=== PATIENT | female | born 1930 | race African-American/Black ===

== ENCOUNTER 2017-02-11 09:02 | Inpatient (IN) ==
[2017-02-11] MEDS ORDERED: FUROSEMIDE 40 MG/4 ML VIAL IV STA (09:49)
[2017-02-11] MEDS ORDERED: FUROSEMIDE 100 MG/10 ML VIAL ONE (10:20)
--- NOTE | 2017-02-11 10:20 | XRay Report ---
Portable chest Date: 02/11/2017 Clinical history: Shortness of breath Comparison: 07/05/2016 Technique: Portable AP sitting chest Findings: The heart is larger in size with prominent pulmonary vasculature. Progressive diffuse parenchymal findings with small pleural effusions. Degenerative changes are noted. Impression: The heart is larger in size with moderate CHF and small pleural effusions. PROCEDURE INTERPRETED AT [facility] DEPARTMENT OF RADIOLOGY Final Report Signed by: Dr. Raven Granados
--- NOTE | 2017-02-11 11:12 | Emergency Department Note ---
Luz Elena Montaño Hilary, am scribing for, and in the presence of, Angela Us DO 09: 48. IMagen Debra, DO, personally performed the services described in this documentation, ascribed by Gay Laguna in my presence, and it is both accurate and complete . Arrival - Arrival Chief Complaint: Shortness of Breath Stated Complaint: sob ED Nursing Triage Note: pt to triage via wc with c/o having sob pt states onset 4 days lpta. worsening this am. pt denies any cp. pt states she can't lay flat. Mode of Arrival: Wheelchair Limitations: No Limitations Source: Patient, RN Notes Reviewed - History of Present Illness HPI Narrative: Pt is a 86 y/o female presenting to the ED with c/o SOB which onset 4 days ago but worsened this AM. Pt is on 2L of home oxygen for CHF, she states that she takes her medication as prescribed but skipped a dose of Lasix last night. Pt confirms SOB but denies chest pain. No other complaints or problems stated in the ED. Onset (ago): day(s) Consistency: constant Severity: mild Severity scale (1-10): 1 Allergies/Adverse Reactions: Allergies Allergy/AdvReac Type Severity Reaction Status Date / Time albuterol Allergy SHORTNESS Verified 02/11/17 09:24 OF BREATH Penicillins Allergy RASH Verified 02/11/17 09:24 Sulfa (Sulfonamide Allergy RASH Verified 02/11/17 09:24 Antibiotics) Home Medications: Home Medications Medication Instructions Recorded Confirmed Type Amlodipine Besylate 5 mg PO DAILY 08/14/15 07/01/16 History Atorvastatin [Lipitor] 20 mg PO DAILY 08/14/15 07/01/16 History Clopidogrel [Plavix] 75 mg PO DAILY 08/14/15 07/01/16 History Meloxicam 15 mg PO DAILY 08/14/15 07/01/16 History Potassium Chloride Cap/Tab [K Dur] 20 meq PO TID 08/14/15 07/01/16 History Ascorbic Acid Tab [Vitamin C Tab] 500 mg PO DAILY 07/01/16 07/01/16 History Cholecalciferol [Vitamin D3] 400 unit PO DAILY 07/01/16 07/01/16 History Vitamin E 400 unit PO DAILY 07/01/16 07/01/16 History Acetaminophen Tab [Tylenol Tab] 325 mg PO Q4H PRN #0 tablet 07/06/16 Rx Albuterol Neb [Proventil Neb] 2.5 mg RESP TX RT Q6H PRN #7 07/06/16 Rx nebulization solution Ferrous Sulfate Tab [Feosol 325 mg PO BID #60 tablet 07/06/16 Rx Original Tab] Furosemide Tab [Lasix Tab] 80 mg PO BID DIURETIC #60 tablet 07/06/16 Rx Insulin NPH/Regular 70/30 [HumuLIN 15 unit SUBCUT AC SUPPER #7 07/06/16 Rx 70/30] Insulin NPH/Regular 70/30 [HumuLIN 30 unit SUBCUT AC BREAKFAST #7 07/06/16 Rx 70/30] injection Levofloxacin Tab [Levaquin Tab] 500 mg PO DAILY #14 tablet 07/06/16 Rx Magnesium Chloride [Slow Mag] 64 mg PO BID #60 tablet 07/06/16 Rx Pantoprazole Tab [Protonix Tab] 40 mg PO DAILY #30 tablet 07/06/16 Rx Review of System - Review of System 12 point system: reviewed and no additional remarkable complaints except as stated - Review of System Constitutional: Absent: fever Respiratory: Present: respiratory distress (SOB) Cardiovascular: Absent: chest pain Medical,Surgical,& Family Hx - Medical History Cardio: History of: CAD, Hypertension, Cardiovascular Problems (Cardiomegley) Endocrine: History of: Diabetes Mellitus (IDDM), Dyslipidemia Respiratory: History of: COPD (oxygen dependent) - Surgical History Cardiac Surgeries: Sugical HX of: Cardiac Catheterization (stents) - Family History Family History: Reports;: Family Heart Disease, Family Hypertension - Social History Smoking Status: Smoker, status unknown Frequency of Alcohol Use: None Type of Drug Use: None Exam Vital Signs: Vital Signs Temperature 97.2 F L 02/11/17 10:00 Pulse Rate 101 H 02/11/17 10:00 Respiratory Rate 22 02/11/17 10:00 Blood Pressure 182/83 02/11/17 10:00 O2 Sat by Pulse Oximetry 79 L 02/11/17 09:20 - General General appearance: alert, in no apparent distress, obese - Head Head exam: Present: atraumatic, normocephalic - Eye Eye exam: Present: normal appearance, PERRL, EOMI - ENT ENT exam: Present: mucous membranes moist, TM's normal bilaterally. Absent: mucous membranes dry - Neck Neck exam: Present: full ROM, trachea midline. Absent: tenderness - Chest Chest inspection: Present: symmetric chest wall rise. Absent: tenderness - Respiratory Respiratory exam: Present: rales (throughout). Absent: respiratory distress - Cardiovascular Cardiovascular exam: Present: regular rate, normal rhythm, normal heart sounds. Absent: murmur, rubs, gallop - Abdominal Exam Abdominal exam: Present: soft, normal bowel sounds. Absent: distention, tenderness (right sided abdominal hernia noted ) - Extremities Exam Extremities exam: Present: full ROM, pedal edema (slightly on the left). Absent : tenderness - Back Exam Back exam: Present: full ROM. Absent: tenderness - Neurological Exam Neurological exam: Present: alert, oriented X3, CN II-XII intact. Absent: motor sensory deficit - Psychiatric Psychiatric exam: Present: normal affect, normal mood - Skin Skin exam: Present: warm, dry, intact, normal color. Absent: rash Course Course Narrative: pt improved after lasix and breathing tx. but still feels that she is working hard to breathe, will admit for observation to hospitalist. pt is stable at this time . O2 sat 90 to 92% on 2 lpm Results - Labs CBC & BMP: 02/11/17 10:46 02/11/17 10:46 Lab Results: I have reviewed the patients labs Labs: Laboratory Tests 02/11/17 10:46 WBC 9.6 RBC 5.27 Hgb 13.2 Hct 40.8 MCV 77.4 L MCH 25 L Plt Count 325 Lymph % (Auto) 20.1 L Baso % (Auto) 1.1 H - Diagnostic Findings Procedure: Chest x-ray: report reviewed by me (The heart is larger in size with moderate CHF and small pleural effusions) Disposition Clinical Impression: Congestive heart failure, Acute exacerbation of chronic obstructive airways disease Case discussed with: patient, patient's family Disposition: Still a Patient Condition: Stable Time of Disposition: 12:46
[2017-02-11 11:34] LABS: Basophils # 0.1 10*3/uL (0.0-0.2); Basophils % 1.1 % (0.0-0.8); Eosinophils # 0.6 10*3/uL (0.0-0.87); Eosinophils % 6.7 % (0.00-10.9); Hematocrit 40.8 VOL% (35.7-47.0); Hemoglobin 13.2 GM/DL (12.0-16.0); Immature Granulocytes % 0.4 %; Immature Granulocytes Absolute 0.04 #; Lymphocytes # 1.9 10*3/uL (1.4-4.0); Lymphocytes % 20.1 % (21.3-54.2); Mean Corpuscular HGB Conc 32.4 GM/DL (32-36); Mean Corpuscular Hemoglobin 25 PG (27-34); Mean Corpuscular Volume 77.4 FL (87-102); Monocytes # 0.8 10*3/uL (0.11-0.8); Monocytes % 8.7 % (1.7-12.7); Platelet Count 325 T/CUMM (130-400); Red Blood Count 5.27 MC/CUMM (3.8-5.5); Red Cell Distribution Width 17.2 % (9.3-17.3); White Blood Count 9.6 T/CUMM (4-12)
[2017-02-11] MEDS ORDERED: ALUM/MAG/SIMETH/LIDO VISC 1:1 30 ML BOTTLE PO STA (11:52)
[2017-02-11] MEDS ORDERED: ALUM/MAG/SIMETH/LIDO VISC 1:1 30 ML BOTTLE PO ONE (11:53)
[2017-02-11 11:59] LABS: Partial Thromboplastin Time 28.4 SECS (0-40)
[2017-02-11 12:12] LABS: Apearance,Urine CLEAR (Clear); Bacteria,Urine Occasional /HPF (Few); Bilirubin,Urine Negative (Negative); Blood, Urine Negative (Negative); Glucose,Urine (UA) Negative (Negative); Ketones,Urine Negative (Negative); Mucus,Urine Occasional /LPF (Occasional); Nitrite,Urine Negative (Negative); Protein,Urine Negative; RBC,Urine <1 /HPF (0-4); Squamous Epithelial Cell,Urine Occasional /HPF (0-10); Urine Color Straw (Yellow); Urine Specific Gravity 1.005 (1.001-1.035); Urine Urobilinogen < 2.0 EU/DL (0.2-1.0); WBC,Urine <1 /HPF (0-6)
[2017-02-11 12:19] LABS: Alanine Aminotransferase 12 U/L (13-56); Alkaline Phosphatase 102 U/L (45-117); Aspartate Amino Transferase 13 U/L (0-37); Blood Urea Nitrogen 14 MG/DL (7-18); Calcium 9.2 MG/DL (8.5-10.1); Glucose 48 MG/DL (74-106); Potassium 3.4 MMOL/L (3.5-5.1); Sodium 143 MMOL/L (136-145); Total Protein 8.2 G/DL (6.4-8.3); Troponin I Only 0.027 NG/ML (0.00-0.045)
[2017-02-11] MEDS ORDERED: methylPREDNISolone SOD SUC 40 MG/1 ML VIAL IV STA (12:29)
[2017-02-11] MEDS ORDERED: ONDANSETRON 4 MG/2 ML VIAL IV PRN (13:05)
[2017-02-11] MEDS ORDERED: ACETAMINOPHEN 325 MG TABLET PO PRN (13:05)
[2017-02-11] MEDS ORDERED: methylPREDNISolone SOD SUC 40 MG/1 ML VIAL ONE (13:15)
--- NOTE | 2017-02-11 14:06 | Hospitalist History & Physical ---
Assessment and Plan - Time spent with patient Time spent with patient: Greater than 30 minutes (1) Acute exacerbation of chronic obstructive airways disease Status: Acute Assessment and plan: Admit to Hospitalist services. Will start breathing treatments. Will start steroids. Will give diuretics.Will repeat a.m. labs. Current Visit: Yes (2) Congestive heart failure Status: Acute Assessment and plan: Will start Iv diuretics. Will check a.m. labs. Current Visit: Yes (3) Insulin dependent diabetes mellitus Status: Chronic Assessment and plan: Will continue home medications. Will start sliding scale protocol for coverage while acutely ill. Current Visit: No History of Present Illness Chief complaint: SOB History of present illness: Ms. Alvares is a 86 year old black female presented to the [facility] Ed for increasing shortness of breath. She reports 4 days of shortness of breath that became worse this morning. Has a medical history of COPD (oxygen dependant/ 2liters most of the time), HTN, CHF, Diabetes. She verbalizes that she uses her home o2 at night and occassionally during the day when she exerts herself and can't "catch up her breathing". She lives home alone, uses a motorized wheelchair for ambulation with very little walking from wheelchair to chair or wheelchair to bed. She reports having a nebulizer at home but does not use it. Primary care Physician: Dr Gallo Cardiology: Dr Gastelum and no pulmonary MD. After discussion with Dr Us Ed physician and Dr Almaguer with Hospitalist services, it was in agreement to admit to hospitalist services for further evaluation and treatment. Home medications to be reviewed and reconciliation to follow. Home Medications Medication Instructions Recorded Confirmed Type Amlodipine Besylate 5 mg PO DAILY 08/14/15 07/01/16 History Atorvastatin [Lipitor] 20 mg PO DAILY 08/14/15 07/01/16 History Clopidogrel [Plavix] 75 mg PO DAILY 08/14/15 07/01/16 History Meloxicam 15 mg PO DAILY 08/14/15 07/01/16 History Potassium Chloride Cap/Tab [K Dur] 20 meq PO TID 08/14/15 07/01/16 History Ascorbic Acid Tab [Vitamin C Tab] 500 mg PO DAILY 07/01/16 07/01/16 History Cholecalciferol [Vitamin D3] 400 unit PO DAILY 07/01/16 07/01/16 History Vitamin E 400 unit PO DAILY 07/01/16 07/01/16 History Acetaminophen Tab [Tylenol Tab] 325 mg PO Q4H PRN #0 tablet 07/06/16 Rx Albuterol Neb [Proventil Neb] 2.5 mg RESP TX RT Q6H PRN #7 07/06/16 Rx nebulization solution Ferrous Sulfate Tab [Feosol 325 mg PO BID #60 tablet 07/06/16 Rx Original Tab] Furosemide Tab [Lasix Tab] 80 mg PO BID DIURETIC #60 tablet 07/06/16 Rx Insulin NPH/Regular 70/30 [HumuLIN 15 unit SUBCUT AC SUPPER #7 07/06/16 Rx 70/30] Insulin NPH/Regular 70/30 [HumuLIN 30 unit SUBCUT AC BREAKFAST #7 07/06/16 Rx 70/30] injection Levofloxacin Tab [Levaquin Tab] 500 mg PO DAILY #14 tablet 07/06/16 Rx Magnesium Chloride [Slow Mag] 64 mg PO BID #60 tablet 07/06/16 Rx Pantoprazole Tab [Protonix Tab] 40 mg PO DAILY #30 tablet 07/06/16 Rx Allergies Allergy/AdvReac Type Severity Reaction Status Date / Time albuterol Allergy SHORTNESS Verified 02/11/17 09:24 OF BREATH Penicillins Allergy RASH Verified 02/11/17 09:24 Sulfa (Sulfonamide Allergy RASH Verified 02/11/17 09:24 Antibiotics) Medical,Surgical,& Family Hx - Medical History Cardio: History of: CHF, CAD, Hypertension, Cardiovascular Problems ( Cardiomegley) Endocrine: History of: Diabetes Mellitus (IDDM), Dyslipidemia Respiratory: History of: COPD (oxygen dependent) - Surgical History Cardiac Surgeries: Sugical HX of: Cardiac Catheterization (stents) - Family History Family History: Reports;: Family Heart Disease, Family Hypertension - Social History Smoking Status: Former smoker (quit about 30 years ago) Frequency of Alcohol Use: None Type of Drug Use: None Marital Status: Lives With:: Alone Functional capacity: wheelchair bound (patient is able to walk but only 2-4 steps before she becomes very short of breath; uses a motorized wheelchair) Review of systems: ROS completed and pertinent positives and negatives in HPI. Exam - Constitutional Vitals: Period Temp Pulse Resp BP Sys/Maldonado Pulse Ox Last 24 Hr 97.2 F-97.2 F 101-101 22-22 182-182/83-83 79 General appearance: no acute distress, over weight - Head Head exam: Present: normal inspection - Eye Eye exam: Present: EOMI Pupils: Present: DEDE - Neck Neck exam: Present: normal inspection - Respiratory Respiratory exam: Present: rales, wheezes (expiratory wheezes) - Cardiovascular Cardiovascular exam: Present: regular rate and rhythm - GI/Abdominal GI/Abdominal exam: Present: normal bowel sounds, soft. Absent: firm, tenderness , rebound - Extremities Exam Extremities exam: Present: full ROM, edema (trace edema) - Neurological Exam Neurological exam: Present: alert, oriented X3 - Psychiatric Psychiatric exam: Present: normal affect, normal mood. Absent: agitated, anxious - Skin Skin exam: Present: normal color, warm, dry Results - Labs CBC & BMP: 02/11/17 10:46 02/11/17 10:46 Lab Results: I have reviewed the past 24 hour labs - EKG EKG results: interpreted by ERMD - Diagnostic Findings Procedure: X-ray: report reviewed by me (The heart is larger in size with moderate CHF and small pleural effusions.)
[2017-02-11] MEDS: methylPREDNISolone SOD SUC 125 MG/2 ML VIAL IV SCH ×2 (15:55→21:44)
[2017-02-11] MEDS: FUROSEMIDE 40 MG/4 ML VIAL IV SCH (15:56)
[2017-02-11] MEDS: ENOXAPARIN 40 MG/0.4 ML SYRINGE SUBCUT SCH (15:57)
[2017-02-11] MEDS ORDERED: POTASSIUM CHLORIDE 20 MEQ TABLET PO ONE (16:15)
[2017-02-11] MEDS: ZALEPLON 5 MG CAPSULE PO PRN (21:44)
[2017-02-12 05:24] LABS: Basophils % 0.2 % (0.0-0.8); Hematocrit 39.6 VOL% (35.7-47.0); Hemoglobin 12.6 GM/DL (12.0-16.0); Immature Granulocytes % 0.6 %; Immature Granulocytes Absolute 0.05 #; Lymphocytes % 12.1 % (21.3-54.2); Mean Corpuscular HGB Conc 31.8 GM/DL (32-36); Mean Corpuscular Hemoglobin 25 PG (27-34); Mean Platelet Volume 11.8 FL (9.6-12.0); Monocytes # 0.1 10*3/uL (0.11-0.8); Monocytes % 1.5 % (1.7-12.7); Neutrophils # 6.9 10*3/uL (1.4-7.4); Neutrophils % 85.6 % (38.7-73.9); Platelet Count 315 T/CUMM (130-400); Red Blood Count 5.14 MC/CUMM (3.8-5.5); Red Cell Distribution Width 16.9 % (9.3-17.3); White Blood Count 8.1 T/CUMM (4-12)
[2017-02-12 06:07] LABS: Calcium 8.9 MG/DL (8.5-10.1); Osmolality,Calculated 286.4 MOS/KG (273-304); Potassium 4.2 MMOL/L (3.5-5.1); Risk Ratio 2.96; Thyroid Stimulating Hormone 0.321 uIU/ml (0.358-3.74)
[2017-02-12] MEDS: methylPREDNISolone SOD SUC 125 MG/2 ML VIAL IV SCH ×3 (06:36→22:11)
[2017-02-12] MEDS: FUROSEMIDE 40 MG/4 ML VIAL IV SCH ×2 (08:25→16:55)
[2017-02-12] MEDS: DESITIN 4OZ/NYSTATIN 15 GRAM MIXTURE PASTE TOP SCH ×2 (11:35→20:49)
[2017-02-12] MEDS ORDERED: ACETAMINOPHEN 325 MG TABLET PO PRN (12:13)
[2017-02-12] MEDS ORDERED: MAGNESIUM HYDROXIDE SUSP 30 ML UDCUP PO PRN (12:14)
[2017-02-12] MEDS ORDERED: POLYETHYLENE GLYCOL POWDER 17 GM PACK PO PRN (12:14)
--- NOTE | 2017-02-12 12:18 | Hospitalist Progress Note ---
Assessment and Plan (1) Acute exacerbation of chronic obstructive airways disease Status: Acute Current Visit: Yes (2) Hypertension Status: Chronic Current Visit: Yes Qualifiers: Hypertension type: essential hypertension Qualified Code(s): I10 - Essential (primary) hypertension (3) History of coronary artery disease Status: Chronic Current Visit: No (4) Rheumatoid arthritis Status: Chronic Current Visit: No (5) Fibrosis, pulmonary, interstitial, diffuse Status: Chronic Current Visit: Yes (6) Congestive heart failure Status: Acute Assessment and plan: Improving with Lasix. Repeat echo ordered Current Visit: Yes Qualifiers: Congestive heart failure type: diastolic Congestive heart failure chronicity: acute on chronic Qualified Code(s): I50.33 - Acute on chronic diastolic (congestive) heart failure Hospitalist: Subjective Interval history: Patient seen and examined. No acute events overnight. Case discussed with nursing staff. Labs reviewed. Patient reports improved breathing. Good urine output with Lasix. She requests a stool softener. Will discontinue Escalera and consider discharge home tomorrow. Last echo from June 2016 shows: Technically difficult study 1+ left atrial enlargement Borderline LV systolic function with ejection fraction estimated 50% Aortic sclerosis without stenosis Trace to 1+ MR and TR with RVSP 41 mmHg plus RAP Exam - Constitutional Vitals: Period Temp Pulse Resp BP Sys/Maldonado Pulse Ox Last 24 Hr 96.3 F-97.7 F 80-100 16-20 111-145/58-71 84-92 Exam: Constitutional System: No distress. No tremulousness. Morbidly obese Head: Normocephalic, atraumatic. Ears, Nose and Throat System: No pain or tenderness. No epistaxis or discharge Eyes System: Pupils equal, round, and reactive. Extraocular muscles intact. Neck: Supple, without adenopathy, No jugular venous distention. No thyromegaly, neck mass, or prior surgery apparent. Respiratory System: Chest with rales at the bases to auscultation. Cardiovascular System: Heart with regular rate and rhythm. No murmur. GI System: Abdomen soft, nontender. Normo active bowel sounds present. Musculoskeletal System: limbs with no pedal edema. Full distal pulses. Neurological System: No discernable sensory deficit. No aphasia Psychiatric System: Conversation is rational Results - Labs CBC & BMP: 02/12/17 05:05 02/12/17 05:05 Lab Results: I have reviewed the past 24 hour labs Quality Measures - Stroke Symptom Onset Unknown: No
[2017-02-12] MEDS: ENOXAPARIN 40 MG/0.4 ML SYRINGE SUBCUT SCH (14:36)
[2017-02-12] MEDS: POTASSIUM CHLORIDE 20 MEQ TABLET PO SCH ×2 (14:36→21:20)
--- NOTE | 2017-02-12 15:55 | ECHO Report ---
Awilda Alvares Exam Date: 02/12/2017 11:01 Referring Physician: Technologist: Blanca Mejia RDCS Age: 86 Ht (in): 67 Wt (lb): 240 Gender: F Exam Location: [facility] Echo Indications: Shortness of breath, COPD, Edema, unspecified, Pulmonary edema, Heart failure, unspecified, IDDM BP: 111 / 62 HR: 89 Rhythm: Sinus Technical Quality: Very technically difficult study IMPRESSIONS Very technically difficult study. Left ventricular ejection fraction is estimated at 50% although endocardial definition is poor. There is mild concentric left ventricular hypertrophy with mild diastolic dysfunction. Trace mitral valve regurgitation. Mild tricuspid valve regurgitation. MEASUREMENTS (Male / Female) Normal Values 2D ECHO LV Diastolic Diameter PLAX 5.1 cm 4.2 - 5.9 / 3.9 - 5.3 cm LV Systolic Diameter PLAX 4.3 cm LV Fractional Shortening PLAX 15.2 % IVS Diastolic Thickness 1.1 cm 0.6 - 1.0 / 0.6 - 0.9 cm LVPW Diastolic Thickness 1.2 cm 0.6 - 1.0 / 0.6 - 0.9 cm RV Internal Dim ED PLAX 3.6 cm Aortic Root Diameter 3.4 cm LA Systolic Diameter LX 3.5 cm 3.0 - 4.0 / 2.7 - 3.8 cm DOPPLER TR Peak Velocity 318.0 cm/s TR Peak Gradient 40.4 mmHg FINDINGS Left Ventricle Normal left ventricular cavity size. There is mild concentric left ventricular hypertrophy with mild diastolic dysfunction. Left ventricular ejection fraction is estimated at 50%. Right Ventricle The right ventricle is grossly normal in size and function. Right Atrium The right atrium is grossly normal in size. Left Atrium The left atrium is grossly normal in size. Mitral Valve Grossly normal mitral valve. Trace mitral valve regurgitation. Aortic Valve Grossly normal aortic valve without significant sclerosis or stenosis. There is no aortic regurgitation. Tricuspid Valve Grossly normal tricuspid valve. Mild tricuspid valve regurgitation. Tricuspid regurgitation velocities suggest a PAP of 50 mmHg. Pulmonic Valve Morphologically normal pulmonic valve without significant stenosis. There is no pulmonic regurgitation. Pericardium Normal pericardium without effusion. Aorta Normal ascending aorta dimension. James Carter (Electronically Signed) Final Date: 12 February 2017 15:54
[2017-02-12] MEDS ORDERED: INSULIN NPH/REGULAR 70/30 100 UNIT/ML SUBCUT SCH (16:30)
[2017-02-12] MEDS: ZALEPLON 5 MG CAPSULE PO PRN (22:11)
[2017-02-13] MEDS: methylPREDNISolone SOD SUC 125 MG/2 ML VIAL IV SCH ×2 (05:30→12:32)
[2017-02-13 07:00] LABS: Calcium 9.3 MG/DL (8.5-10.1); Magnesium 2.1 MG/DL (1.8-2.4); Osmolality,Calculated 289.3 MOS/KG (273-304); Potassium 4.8 MMOL/L (3.5-5.1)
[2017-02-13] MEDS ORDERED: INSULIN NPH/REGULAR 70/30 100 UNIT/ML SUBCUT SCH (07:30)
[2017-02-13] MEDS ORDERED: amLODIPine 5 MG TABLET PO SCH (09:00)
[2017-02-13] MEDS ORDERED: CLOPIDOGREL 75 MG TABLET PO SCH (09:00)
[2017-02-13] MEDS ORDERED: MELOXICAM 7.5 MG TABLET PO SCH (09:00)
[2017-02-13] MEDS ORDERED: ATORVASTATIN 20 MG TABLET PO SCH (09:00)
--- NOTE | 2017-02-13 09:06 | Physician Query Form ---
CLICK EDIT DOCUMENT TO SELECT QUERY ANSWER --> OK --> SIGN Adelita Durham RN Clinical Finance Assistant W) [phone] (f) [phone] [email or web address] PROVIDERS: Make your selection(s) from the choices in EACH section by typing an "x" and enter comments in the comment section. Please use your independent medical judgment in providing your response. This request does not imply that any particular answer is desired or expected. CLINICAL INDICATORS: (Providers should not edit this section) Based on documentation of "Acute exacerbation of COPD" "Acute on chronic diastolic CHF" SATS as low as 79%. Oxygen applied at 2L/NC. "On 2L home oxygen " history of "oxygen dependent" If possible, please further clarify the type and acuity of respiratory diagnosis : ACUITY: ( ) Acute ( ) Chronic ( X) Acute on Chronic TYPE: ( X) Respiratory failure with hypoxia ( ) Respiratory failure with hypercapnia ( ) Respiratory Arrest ( ) Postprocedural/postoperative respiratory failure ( ) ARDS (Adult/Acute Respiratory Distress Syndrome) ( ) Other, please specify: ( ) Clinically unable to determine Recognized criteria for respiratory failure PH <7.35 or >7.45 PO2 <60 PCO2 >50 RR >24 O2 Sat <90% on RA or <95% on O2 Use of accessory muscles Unable to speak in full sentences Intubation is not required COMMENTS: PLEASE ALSO DOCUMENT RESPONSE IN PROGRESS NOTES AND/OR DISCHARGE SUMMARY Use of terms such as suspected, likely, or probable (associated with a specific diagnosis that is being evaluated, monitored, or treated as if it exists) are acceptable and can be restated in the discharge summary if not ruled out. MTDD
[2017-02-13] MEDS: FUROSEMIDE 40 MG/4 ML VIAL IV SCH (09:10)
[2017-02-13] MEDS: ENOXAPARIN 40 MG/0.4 ML SYRINGE SUBCUT SCH (09:23)
[2017-02-13] MEDS: POTASSIUM CHLORIDE 20 MEQ TABLET PO SCH ×2 (09:24→15:06)
[2017-02-13] MEDS: DESITIN 4OZ/NYSTATIN 15 GRAM MIXTURE PASTE TOP SCH (09:25)
--- NOTE | 2017-02-13 10:37 | EKG Report ---
Stationary ECG Study [facility] ER Test Date: 02/11/2017 9:19:30 AM Pat Name: TONY SON Department: Room: 223 Gender: F Cork Insulator: : 1930 Requested by: Angela Us Order Number: [id number] Reading MD: BRENDA CLEMENTE Intervals [place] Rate: 101 P: 57 PA: 165 QRS: -29 QRSD: 169 T: 43 QT: 385 QTc: 443 Interpretive Statements SINUS TACHYCARDIA WITH SINUS ARRHYTHMIA AT 101 BPM RIGHT BUNDLE BRANCH BLOCK Electronically Signed On 02-15-17 08:47:40 CDT by BRENDA CLEMENTE [email or web address]
[2017-02-13 16:02] VITALS: BP 119/67
== END 2017-02-13 15:35 | disposition home or self-care (01) | DRG 291 ==
LOC: N.ED 09:02 → N.EDINP 13:05 → SUATTDRO 13:06 → N.EDINP 14:59 → N.2E 15:10
PROVIDERS: ADMIT Family Medicine; ATTEND Family Medicine

== ENCOUNTER 2017-03-28 04:48 | Inpatient (IN) ==
--- NOTE | 2017-03-28 06:05 | Emergency Department Note ---
Arrival - Arrival Chief Complaint: Shortness of Breath Stated Complaint: Shortness of breath ED Nursing Triage Note: EMS reports that they were called to patient's residence for slurred speech. States that when they arrived patient's speech was not slurred but O2 saturation was in the 70's. Patient was give albuterol nebulizer and O2 saturation came up to 95% on 2L O2. Patient has a history of HTN, DM, MD with stent placement and COPD. Dr. Gallo is patient's PCP. Mode of Arrival: Stretcher Time Seen by Provider: 03/28/17 05:31 - History of Present Illness HPI Narrative: This is an 86-year-old female of descent with a history of congestive heart failure, coronary artery disease status post stent placement, hyperlipidemia, hypertension, COPD on 2 L of nasal O2 at home, rheumatoid arthritis, type 2 diabetes, who son called an ambulance because she had slurred speech. When EMS arrived they noticed that her O2 sat was 80% on 2 L nasal and they treated her with albuterol. The patient woke up at approximately 4 AM and went to bed at 9 PM the previous night and cannot be sure of exactly when the speech problem started. The patient walked to the stretcher without difficulty and had no focal motor neurologic deficits as examined by EMS. Date of Last Menstrual Period: MENOPAUSE Allergies/Adverse Reactions: Allergies Allergy/AdvReac Type Severity Reaction Status Date / Time albuterol Allergy SHORTNESS Verified 02/11/17 09:24 OF BREATH Penicillins Allergy RASH Verified 02/11/17 09:24 Sulfa (Sulfonamide Allergy RASH Verified 02/11/17 09:24 Antibiotics) Home Medications: Home Medications Medication Instructions Recorded Confirmed Type Amlodipine Besylate 5 mg PO QAM 08/14/15 02/11/17 History Atorvastatin [Lipitor] 20 mg PO QAM 08/14/15 02/11/17 History Clopidogrel [Plavix] 75 mg PO QAM 08/14/15 02/11/17 History Meloxicam 15 mg PO QAM 08/14/15 02/11/17 History Potassium Chloride Cap/Tab [K Dur] 20 meq PO TID 08/14/15 02/11/17 History Acetaminophen Tab [Tylenol Tab] 325 mg PO Q4H PRN #0 tablet 07/06/16 02/11/17 Rx Furosemide Tab [Lasix Tab] 80 mg PO BID DIURETIC #60 tablet 07/06/16 02/11/17 Rx Insulin NPH Hum/Reg Insulin Hm 35 units SUBCUT AC SUPPER 02/11/17 02/11/17 History [NovoLIN 70/30] Insulin NPH Hum/Reg Insulin Hm 45 units SUBCUT AC BREAKFAST 02/11/17 02/11/17 History [NovoLIN 70/30] Pantoprazole Tab [Protonix Tab] 1 tablet PO DAILY 02/12/17 02/12/17 History methylPREDNISolone DOSEPAK [Medrol 4 mg PO DIRECTED #1 pack 02/13/17 Rx Dosepak] Review of System - Review of System Constitutional: Absent: fever, night sweats Eyes: Absent: redness, vision change Head/Ears/Nose/Throat: Absent: epistaxis, nasal drainage Respiratory: Absent: respiratory distress Cardiovascular: Absent: dyspnea on exertion, orthopnea Gastrointestinal: Absent: diarrhea, constipation Genitourinary female: Absent: frequency, genital lesions Musculoskeletal: Absent: joint swelling, lower back pain, leg pain Skin: Absent: change in color, change in hair/nails, pruritus Neurological: Absent: numbness, paresthesias Psychiatric: Absent: suicidal thoughts, homicidal thoughts, auditory hallucinations Endocrine: Absent: heat intolerance, polydipsia, polyuria Hematological/Lymphatic: Absent: easy bruising, lymphadenopathy Allergic/Immunologic: Absent: urticaria, itchy eyes Medical,Surgical,& Family Hx - Medical History Cardio: History of: CHF, CAD, Hypertension, Cardiovascular Problems ( Cardiomegley) HEENT: History of: Ear Problem (hard of hearing) Endocrine: History of: Diabetes Mellitus (IDDM), Dyslipidemia Rheumatology: History of;: Rheumatoid Arthritis Respiratory: History of: COPD (oxygen dependent) Gastrointestinal: History of: GI Problems (hernia) - Surgical History Cardiac Surgeries: Sugical HX of: Cardiac Catheterization (stents) Thoracic Surgeries: Patient denies;: Organ Transplant - Family History Family History: Reports;: Family Diabetes, Family Heart Disease, Family Hypertension - Social History Smoking Status: Former smoker Frequency of Alcohol Use: None Type of Drug Use: None Exam Vital Signs: Vital Signs Temperature 97.0 F L 03/28/17 04:58 Pulse Rate 116 H 03/28/17 04:58 Respiratory Rate 24 03/28/17 04:58 Blood Pressure 132/75 03/28/17 04:58 O2 Sat by Pulse Oximetry 88 L 03/28/17 04:58 - General Exam limited due to: ALOC - Head Head exam: Present: atraumatic - Eye Eye exam: Present: PERRL, EOMI - ENT ENT exam: Present: normal exam, normal oropharynx - Neck Neck exam: Present: normal inspection, full ROM - Chest Chest inspection: Present: normal inspection, symmetric chest wall rise - Respiratory Respiratory exam: Present: normal lung sounds bilaterally, prolonged expiratory phase - Cardiovascular Cardiovascular exam: Present: regular rate, normal rhythm - Abdominal Exam Abdominal exam: Present: soft, normal bowel sounds - Extremities Exam Extremities exam: Present: normal inspection, full ROM - Back Exam Back exam: Present: normal inspection, full ROM - Neurological Exam Neurological exam: Present: alert, oriented X3, CN II-XII intact - Psychiatric Psychiatric exam: Present: normal affect, normal mood - Skin Skin exam: Present: warm, dry
--- NOTE | 2017-03-28 06:18 | CT Report ---
Referring physician: Marshal Ariza MD Exam: CT brain without contrast Date: 03/28/2017 Comparison: None Reason: Hemiparesis Technique: Axial images of the head were obtained without the use of contrast. Total DLP was 1025.60 mGy*cm. Findings: The ventricles are minimally prominent in size with no midline displacement. Diffuse atrophy and cerebral hypodensities. Arterial calcifications are noted.. There is no evidence of an acute infarction, recent intracranial hemorrhage or abnormal mass effect. The osseous structures appear intact. The mastoid air cells and visualized paranasal sinuses are clear. Impression: No acute intracranial abnormality is identified. Diffuse atrophy and microvascular disease which could obscure small age indeterminate ischemic infarction. There is associated very minimal compensatory dilatation of the ventricles. The CT exam was performed using one or more of the following dose reduction techniques: Automated exposure control and adjustment of the mA and/or kV according to patient size. PROCEDURE INTERPRETED AT [facility] DEPARTMENT OF RADIOLOGY Final Report Signed by: Dr. Raven Granados
--- NOTE | 2017-03-28 06:24 | EKG Report ---
Stationary ECG Study [facility] ER Test Date: 03/28/2017 4:53:45 AM Pat Name: TONY SON Department: Room: Gender: F Boiler Tester: : 1930 Requested by: Marshal Anaya Order Number: [id number] Reading MD: CLEMENTINA QUISPE Intervals [place] Rate: 105 P: 62 NJ: 168 QRS: -65 QRSD: 170 T: 32 QT: 396 QTc: 457 Interpretive Statements SINUS TACHYCARDIA WITH OCCASIONAL VENTRICULAR PREMATURE COMPLEXES RIGHT BUNDLE BRANCH BLOCK RIGHT AXIS DEVIATION Electronically Signed On 03-28-17 16:45:51 CDT by CLEMENTINA QUISPE [email or web address]
[2017-03-28 06:25] LABS: Basophils # 0.1 10*3/uL (0.0-0.2); Basophils % 0.7 % (0.0-0.8); Eosinophils # 0.5 10*3/uL (0.0-0.87); Eosinophils % 5.4 % (0.00-10.9); Hematocrit 43.8 VOL% (35.7-47.0); Hemoglobin 14.1 GM/DL (12.0-16.0); Immature Granulocytes % 0.3 %; Immature Granulocytes Absolute 0.03 #; Lymphocytes # 1.8 10*3/uL (1.4-4.0); Lymphocytes % 17.7 % (21.3-54.2); Mean Corpuscular HGB Conc 32.2 GM/DL (32-36); Mean Corpuscular Hemoglobin 25 PG (27-34); Mean Corpuscular Volume 76.4 FL (87-102); Mean Platelet Volume 11.5 FL (9.6-12.0); Monocytes # 0.9 10*3/uL (0.11-0.8); Monocytes % 8.9 % (1.7-12.7); Neutrophils # 6.7 10*3/uL (1.4-7.4); Platelet Count 329 T/CUMM (130-400); Red Blood Count 5.73 MC/CUMM (3.8-5.5); Red Cell Distribution Width 17.4 % (9.3-17.3)
[2017-03-28 06:41] LABS: PT Patient Result 11.1 SECS; Partial Thromboplastin Time 27.3 SECS (0-40)
[2017-03-28 06:49] LABS: Albumin 2.8 G/DL (3.4-5.0); Bilirubin,Total 0.5 MG/DL (0.2-1.0); Calcium 9.3 MG/DL (8.5-10.1); Osmolality,Calculated 287.8 MOS/KG (273-304); Total Protein 7.1 G/DL (6.4-8.3)
--- NOTE | 2017-03-28 09:19 | Hospitalist History & Physical ---
<Mohan Rodriguez - Last Filed: 03/28/17 09:20> Assessment and Plan (1) Slurred speech Status: Acute Assessment and plan: Pt. presents with slurred speech. Admit to telemetry for further eval. CT negative. No diagnosis of CVA at this time. MRI pending. Order carotid dopplers. Consult neuro. NPO. NIH scale. PT/OT eval. Consult social media intern for discharge planning. Current Visit: Yes (2) Dyslipidemia Status: Acute Assessment and plan: After swallow eval performed; restart home med. Current Visit: No (3) Congestive heart failure Status: Chronic Assessment and plan: Order BNP. Restart home meds. Current Visit: No Qualifiers: Congestive heart failure type: diastolic Congestive heart failure chronicity: acute on chronic Qualified Code(s): I50.33 - Acute on chronic diastolic (congestive) heart failure (4) History of coronary artery disease Status: Chronic Assessment and plan: 2 stents in past Current Visit: No (5) Hypertension Status: Chronic Assessment and plan: Pt. currently stable. Current Visit: No Qualifiers: Hypertension type: essential hypertension Qualified Code(s): I10 - Essential (primary) hypertension (6) Insulin dependent diabetes mellitus Status: Chronic Assessment and plan: Accuchecks KWABENAS. SSI. Current Visit: No History of Present Illness Chief complaint: Slurred speech and shortness of breath History of present illness: Ms. Alvares is a 86 year old black female with a history of hypertension, diabetes, COPD, pneumonia, arthritis, hiatal hernia, chf, and CAD with stents that presented to the ED today for further evaluation of shortness of breath and slurred speech. Patient is accompanied by her daughter who is present at the bedside. Ms. Alvares states that she woke up this morning around 4 or 430 and "felt funny". She states that she was weak. She states that she took her blood sugar because she thought that it may have been low but that it was normal. She then noted that her speech was slurred. She called out to her grandson who resides with her and told him to call her daughter. Patient states during this episode she also experienced mild shortness of breath. Patient denies fever, chills, chest pain, blurred vision, numbness or tingling, or abdominal pain. Pt. reports that she did not take any medication this morning. On examination in the ED, pt has slurred speech but no lateralizing weakness. CT showed no acute process. Pt. will be admitted to the hospitalist program for further evaulation and treatment. Neurology will be consulted to evaluate. Home Medications Medication Instructions Recorded Confirmed Type Amlodipine Besylate 5 mg PO QAM 08/14/15 03/28/17 History Atorvastatin [Lipitor] 20 mg PO QAM 08/14/15 03/28/17 History Clopidogrel [Plavix] 75 mg PO QAM 08/14/15 03/28/17 History Meloxicam 15 mg PO QAM 08/14/15 03/28/17 History Potassium Chloride Cap/Tab [K Dur] 20 meq PO TID 08/14/15 03/28/17 History Acetaminophen Tab [Tylenol Tab] 325 mg PO Q4H PRN #0 tablet 07/06/16 03/28/17 Rx Furosemide Tab [Lasix Tab] 80 mg PO BID DIURETIC #60 tablet 07/06/16 03/28/17 Rx Insulin NPH Hum/Reg Insulin Hm 35 units SUBCUT AC SUPPER 02/11/17 03/28/17 History [NovoLIN 70/30] Insulin NPH Hum/Reg Insulin Hm 45 units SUBCUT AC BREAKFAST 02/11/17 03/28/17 History [NovoLIN 70/30] Pantoprazole Tab [Protonix Tab] 1 tablet PO DAILY 02/12/17 03/28/17 History Umeclidinium Brm/Vilanterol Tr 1 puff INH DAILY 03/28/17 03/28/17 History [Anoro Ellipta] Allergies Allergy/AdvReac Type Severity Reaction Status Date / Time albuterol Allergy SHORTNESS Verified 02/11/17 09:24 OF BREATH Penicillins Allergy RASH Verified 02/11/17 09:24 Sulfa (Sulfonamide Allergy RASH Verified 02/11/17 09:24 Antibiotics) Medical,Surgical,& Family Hx - Medical History Cardio: History of: CHF, CAD, Hypertension, Cardiovascular Problems ( Cardiomegley) HEENT: History of: Ear Problem (hard of hearing) Endocrine: History of: Diabetes Mellitus (IDDM), Dyslipidemia Rheumatology: History of;: Rheumatoid Arthritis Respiratory: History of: COPD (oxygen dependent) Gastrointestinal: History of: GI Problems (hernia) - Surgical History Cardiac Surgeries: Sugical HX of: Cardiac Catheterization (stents) Thoracic Surgeries: Patient denies;: Organ Transplant - Family History Family History: Reports;: Family Diabetes, Family Heart Disease, Family Hypertension - Social History Smoking Status: Former smoker Frequency of Alcohol Use: None Type of Drug Use: None Marital Status: Lives With:: grandchild Functional capacity: uses cane/walker (also uses motorized scooter) - Constitutional Constitutional: Absent: chills, fever(s) - EENT Eyes: Present: requires corrective lense. Absent: loss of vision Ears: Present: decreased hearing Nose, mouth and throat: Absent: headache(s) - Cardiovascular Cardiovascular: Present: dyspnea, edema - Respiratory Respiratory: Present: dyspnea. Absent: cough - Gastrointestinal Gastrointestinal: Absent: abdominal pain - Musculoskeletal Musculoskeletal: Present: limited range of motion - Neurological Neurological: Present: abnormal speech (slurred). Absent: confusion, headache(s ), numbness Exam - Constitutional Vitals: Period Temp Pulse Resp BP Sys/Maldonado Pulse Ox Last 24 Hr 97.0 F-97.0 F 86-116 24-24 132-132/75-75 88-94 General appearance: no acute distress, over weight - Head Head exam: Present: normal inspection, normocephalic - Eye Eye exam: Present: EOMI. Absent: scleral icterus Pupils: Present: DEDE. Absent: fixed - Neck Neck exam: Present: normal inspection - Respiratory Respiratory exam: Present: wheezes, other (coarse) - Cardiovascular Cardiovascular exam: Present: tachycardia - GI/Abdominal GI/Abdominal exam: Present: normal bowel sounds, soft. Absent: tenderness - Extremities Exam Extremities exam: Present: normal capillary refill, full ROM - Neurological Exam Neurological exam: Present: alert, oriented X3 - Expanded Neurological Exam Neurological exam: Absent: tremor Patient oriented to: Present: person, place, time Speech: Present: slurred Cranial nerves: EOM's intact: Normal Neuro motor strength exam: LUE: 3, RUE: 3 Coma Scale Eye Opening: Spontaneous Coma Scale Motor Response: Obeys Commands Coma Scale Verbal Response: Oriented Coma Scale Total: 15 - Psychiatric Psychiatric exam: Present: normal affect, normal mood - Skin Skin exam: Present: normal color, warm, dry Results - Labs CBC & BMP: 03/28/17 06:08 03/28/17 06:08 Lab Results: I have reviewed the past 24 hour labs <Joaquín Mcnamara - Last Filed: 03/28/17 16:45> History of Present Illness History of present illness: Patient seen and examined independently of EXTERMINATOR HELPER TERMITE Rodriguez, agree with history, assessment and plan as documented. Patient reports acute onset of weakness and slurred speech today, also she reports unilateral facial drooping. MRI today. Neurology consult. Speech evaluation. Exam - Constitutional Vitals: Period Temp Pulse Resp BP Sys/Maldonado Pulse Ox Last 24 Hr 96.2 F-98.0 F 86-116 16-24 126-132/75-76 87-94 Results - Labs CBC & BMP: 03/28/17 06:08 03/28/17 06:08
[2017-03-28] MEDS ORDERED: ONDANSETRON 4 MG/2 ML VIAL IV PRN (09:35)
[2017-03-28] MEDS ORDERED: DEXTROSE 50% 25 GM/50 ML SYRINGE IV PRN (09:35)
[2017-03-28] MEDS ORDERED: GLUCAGON 1 MG VIAL IM PRN (09:35)
[2017-03-28] MEDS ORDERED: ACETAMINOPHEN 325 MG TABLET PO PRN (09:35)
[2017-03-28 09:54] LABS: Risk Ratio 2.62; VLDL CHOLESTEROL 13.8 MG/DL
--- NOTE | 2017-03-28 10:43 | XRay Report ---
Portable chest Date: 03/28/2017 Clinical history: Shortness of breath Comparison: 02/11/2017 Technique: Portable AP sitting chest Findings: Persistent cardiomegaly with uncoiling the aorta. Minimally reduced parenchymal findings in the lungs with smaller pleural effusions. Stable mediastinum and osseous structures. Impression: Improved but persistent mild/moderate CHF with smaller pleural effusions. PROCEDURE INTERPRETED AT [facility] DEPARTMENT OF RADIOLOGY Final Report Signed by: Dr. Raven Granados
[2017-03-28] MEDS: SODIUM CHLORIDE 0.9% 1,000 ML IV SCH (11:18)
[2017-03-28] MEDS: PANTOPRAZOLE 40 MG TABLET PO SCH (11:18)
--- NOTE | 2017-03-28 11:20 | Ultrasound Report ---
Exam: Carotid ultrasound Date: 03/28/2017 Comparison: None Technique: Duplex scans of the carotid and vertebral arteries using B-mode/Paredes scale imaging and Doppler spectral analysis and color flow. Reason: Possible CVA Findings: The right ICA measures 8.1 mm in diameter and the left ICA measures 10.4 mm in diameter. Color-flow documented in the visualized arteries. The peak systolic velocities are as follows: Right CCA: 49.3 Right ICA: 25.5 Right ECA: 33.0 Left CCA: 57.5 Left ICA: 51.1 Left ECA: 52.9 The peak systolic ICA/CCA velocity ratios are as follows: 0.5 on the right and 0.9 on the left. Antegrade flow is present in both vertebral arteries. Impression:[Less than 50% stenosis in both internal carotid arteries with no significant plaque formation. Antegrade flow in both vertebral arteries.] The Society of Radiologists in Ultrasound consensus conference criteria was used. The Ultrasound images were captured and stored. PROCEDURE INTERPRETED AT [facility] DEPARTMENT OF RADIOLOGY Final Report Signed by: Dr. Raven Granados
[2017-03-28] MEDS: INSULIN LISPRO 100 UNIT/ML SUBCUT SCH ×3 (11:37→21:20)
[2017-03-28] MEDS ORDERED: SKIN HEALING OINT (AQUAPHOR) 50 GM TUBE TOP PRN (12:51)
--- NOTE | 2017-03-28 15:46 | Magnetic Resonance Report ---
MR head/brain wo con Indication: CVA. Comparison: CT head 03/28/2017. Technique: Using 1.5 Polly magnet, multisequence multiplanar MR imaging of the brain was performed without the administration of intravenous contrast. Findings: There is no evidence of restricted diffusion. There is no evidence of acute intracranial hemorrhage, mass, or infarction. Ventricular system demonstrates no evidence of acute pathology. Generalized atrophy is present. White matter of the cerebral hemispheres demonstrates no significant abnormality. The basal cisterns appear patent. The arterial flow voids appear intact. The posterior fossa as well as cerebellum demonstrate no evidence of acute pathology. The orbits and globes demonstrate no evidence of acute pathology. Prior bilateral cataract repair is suggested. The paranasal sinuses and mastoid air cells demonstrate no evidence of significant mucoperiosteal thickening. The calvarium as well as the soft tissues overlying the calvarium demonstrate no evidence of acute pathology. No unexpected areas of enhancement are demonstrated within the brain, meninges, or orbits. Impression: 1. A moderate component of generalized cerebral atrophy is present with minimal to no microvascular disease suggested. No acute infarctions are present. 03/28/2017 3:41 PM PROCEDURE INTERPRETED AT [facility] DEPARTMENT OF RADIOLOGY Final Report Signed by: Dr. Maurilio Stanley
--- NOTE | 2017-03-28 17:28 | Neurology Consult Note ---
History of Present Illness History of present illness: Ms. Alvares is a 86 year old black -[place] lady with a history of hypertension, diabetes, COPD, pneumonia, arthritis, hiatal hernia, congestive heart failure, and CAD with stents that presented to the ED with shortness of breath and slurred speech. Ms. Alvares states that she woke up this morning around 4 or 430 and "felt funny". She states that she was weak. She states that she took her blood sugar because she thought that it may have been low but that it was 89. She then noted that her speech was slurred. She called out to her grandson who resides with her and told him to call her daughter. Patient states during this episode she also experienced mild shortness of breath. Patient denies fever, chills, chest pain, blurred vision, numbness or tingling, or abdominal pain. CT showed no acute process. MRI of the brain revealed no acute abnormalities. Patient is back to her baseline and feeling much better now. Home Medications Medication Instructions Recorded Confirmed Type Amlodipine Besylate 5 mg PO QAM 08/14/15 03/28/17 History Atorvastatin [Lipitor] 20 mg PO QAM 08/14/15 03/28/17 History Clopidogrel [Plavix] 75 mg PO QAM 08/14/15 03/28/17 History Meloxicam 15 mg PO QAM 08/14/15 03/28/17 History Potassium Chloride Cap/Tab [K Dur] 20 meq PO TID 08/14/15 03/28/17 History Acetaminophen Tab [Tylenol Tab] 325 mg PO Q4H PRN #0 tablet 07/06/16 03/28/17 Rx Furosemide Tab [Lasix Tab] 80 mg PO BID DIURETIC #60 tablet 07/06/16 03/28/17 Rx Insulin NPH Hum/Reg Insulin Hm 35 units SUBCUT AC SUPPER 02/11/17 03/28/17 History [NovoLIN 70/30] Insulin NPH Hum/Reg Insulin Hm 45 units SUBCUT AC BREAKFAST 02/11/17 03/28/17 History [NovoLIN 70/30] Pantoprazole Tab [Protonix Tab] 1 tablet PO DAILY 02/12/17 03/28/17 History Umeclidinium Brm/Vilanterol Tr 1 puff INH DAILY 03/28/17 03/28/17 History [Anoro Ellipta] Allergies Allergy/AdvReac Type Severity Reaction Status Date / Time albuterol Allergy SHORTNESS Verified 02/11/17 09:24 OF BREATH Penicillins Allergy RASH Verified 02/11/17 09:24 Sulfa (Sulfonamide Allergy RASH Verified 02/11/17 09:24 Antibiotics) 12 point system: reviewed and no additional remarkable complaints except as stated Medical,Surgical,& Family Hx - Medical History Cardio: History of: CHF, CAD, Hypertension, Cardiovascular Problems ( Cardiomegley) HEENT: History of: Ear Problem (hard of hearing) Endocrine: History of: Diabetes Mellitus (IDDM), Dyslipidemia Rheumatology: History of;: Rheumatoid Arthritis Respiratory: History of: COPD (oxygen dependent) Gastrointestinal: History of: GI Problems (hernia) - Surgical History Cardiac Surgeries: Sugical HX of: Cardiac Catheterization (stents) Thoracic Surgeries: Patient denies;: Organ Transplant - Family History Family History: Reports;: Family Diabetes, Family Heart Disease, Family Hypertension - Social History Smoking Status: Former smoker Frequency of Alcohol Use: None Type of Drug Use: None Exam - Constitutional Vitals: Period Temp Pulse Resp BP Sys/Maldonado Pulse Ox Last 24 Hr 96.2 F-98.0 F 86-116 16-24 117-132/63-76 87-94 Exam: GENERAL: Patient is in no acute distress. NECK: Neck is supple. There is no JVD. No carotid bruits present. No thyroid masses. CVS: First and second heart sounds are normal. There is no S3 present. Regular rate and rhythm. RESPIRATORY: Lungs are clear to auscultation without any rales or rhonchi. ABDOMEN: Soft and non-tender. Bowel sounds are present. There is no hepatosplenomegaly. EXT: There is no palpable edema. Peripheral pulses are present. Skin: No rashes Central Nervous system: General: Alert, awake and Oriented x 3 Speech: Fluent without any discharge Comprehension: Intact and normal Facial expressions: Normal Cranial Nerves: CN1/Olfactory: Normal CN II/ Optic: Normal, Visual Gaines unreliable CN III, and : DEDE & EOMI CN V: Normal & intact CN VII: face is symmetric CNVIII: Normal CN XI/X/XI/XII: Intact and Normal Motor: Bulk and Tone is normal. Strength in the right 4/5 Strength in the left 4/5 Sensory: Decreased for all the modalities of PP, LT and temp sense in the stockings to Reflexes: 1+ and symmetrical Cerebellar function: Slow finger to nose testing. Toes: Equivocal Gait: Not tested at this time Results - Labs CBC & BMP: 03/28/17 06:08 03/28/17 06:08 Assessment and Plan (1) Metabolic encephalopathy Status: Acute Assessment and plan: Symptoms most likely related to metabolic encephalopathy. Other differential would include TIA Continue Plavix daily Add baby aspirin a day No further recommendations from neuro stand Sign off please call as needed Follow-up in 4 week Current Visit: Yes
[2017-03-28] MEDS: POTASSIUM CHLORIDE 20 MEQ TABLET PO SCH (21:21)
[2017-03-29 07:00] LABS: Basophils # 0.1 10*3/uL (0.0-0.2); Basophils % 0.9 % (0.0-0.8); Eosinophils # 0.8 10*3/uL (0.0-0.87); Eosinophils % 8.4 % (0.00-10.9); Hematocrit 42.2 VOL% (35.7-47.0); Hemoglobin 13.4 GM/DL (12.0-16.0); Immature Granulocytes % 0.3 %; Immature Granulocytes Absolute 0.03 #; Lymphocytes # 1.8 10*3/uL (1.4-4.0); Lymphocytes % 19.8 % (21.3-54.2); Mean Corpuscular HGB Conc 31.8 GM/DL (32-36); Mean Corpuscular Hemoglobin 25 PG (27-34); Mean Platelet Volume 11.2 FL (9.6-12.0); Monocytes # 0.8 10*3/uL (0.11-0.8); Monocytes % 8.3 % (1.7-12.7); Neutrophils # 5.7 10*3/uL (1.4-7.4); Neutrophils % 62.3 % (38.7-73.9); Platelet Count 288 T/CUMM (130-400); Red Blood Count 5.48 MC/CUMM (3.8-5.5); Red Cell Distribution Width 17.7 % (9.3-17.3); White Blood Count 9.1 T/CUMM (4-12)
[2017-03-29] MEDS: INSULIN LISPRO 100 UNIT/ML SUBCUT SCH ×4 (09:13→20:51)
[2017-03-29] MEDS: FUROSEMIDE 80 MG TABLET PO SCH ×2 (09:13→15:10)
[2017-03-29] MEDS: SODIUM CHLORIDE 0.9% 1,000 ML IV SCH (09:20)
[2017-03-29 09:29] LABS: Calcium 8.7 MG/DL (8.5-10.1); Magnesium 1.9 MG/DL (1.8-2.4); Osmolality,Calculated 284.1 MOS/KG (273-304); Potassium 4.4 MMOL/L (3.5-5.1); Thyroid Stimulating Hormone 1.21 uIU/ml (0.358-3.74)
[2017-03-29] MEDS: PANTOPRAZOLE 40 MG TABLET PO SCH (10:11)
[2017-03-29] MEDS: ATORVASTATIN 20 MG TABLET PO SCH (10:11)
[2017-03-29] MEDS: amLODIPine 5 MG TABLET PO SCH (10:11)
[2017-03-29] MEDS: CLOPIDOGREL 75 MG TABLET PO SCH (10:11)
[2017-03-29] MEDS: POTASSIUM CHLORIDE 20 MEQ TABLET PO SCH ×3 (10:11→20:52)
[2017-03-29] MEDS: MELOXICAM 7.5 MG TABLET PO SCH (10:12)
--- NOTE | 2017-03-29 10:17 | Physician Query Form ---
CLICK EDIT DOCUMENT TO SELECT QUERY ANSWER --> OK --> SIGN Es Peña RN Clinical Stain Dipper W) [phone] (f) [phone] [email or web address] PROVIDERS: Make your selection(s) from the choices in EACH section by typing an "x" and enter comments in the comment section. Please use your independent medical judgment in providing your response. This request does not imply that any particular answer is desired or expected. CLINICAL INDICATORS: (Providers should not edit this section) Based on documentation of "history of COPD, oxygen dependent. When EMS arrived they noticed that her O2 sat was 80% on 2 L". Based on the above, could you clarify the appropriate diagnosis, if significant , that supports the above abnormalities and additional evaluation, monitoring, and/or treatment rendered: ( X) Pt. has chronic respiratory failure ( ) Pt. does not have chronic respiratory failure ( ) Other, please specify: ( ) Clinically unable to determine COMMENTS: PLEASE ALSO DOCUMENT RESPONSE IN PROGRESS NOTES AND/OR DISCHARGE SUMMARY Use of terms such as suspected, likely, or probable (associated with a specific diagnosis that is being evaluated, monitored, or treated as if it exists) are acceptable and can be restated in the discharge summary if not ruled out. MTDD
--- NOTE | 2017-03-29 11:53 | Pulmonology Consult Note ---
Assessment and Plan (1) Postinflammatory pulmonary fibrosis Status: Acute Assessment and plan: I have recently evaluated her CTs. Her interstitial lung disease is worse in the upper lobes but it is around some bullous emphysema. She does have some bronchiectasis. I do not think this fits the pattern of IPF. She has had an abnormal x-ray and CT for at least 5 years and is been little change. PFTs look the same as they did 5 years ago. No specific treatment for this. Current Visit: Yes (2) COPD (chronic obstructive pulmonary disease) Status: Acute Assessment and plan: Previous smoker. Chronically on inhalers. Recently started Anoro. She should stay on that. She is also on home oxygen Current Visit: Yes (3) Bronchiectasis Status: Acute Assessment and plan: She was recently started on Zithromax 250 mg Sunday. Would stay on that. No signs of any active infection. Current Visit: Yes (4) Congestive heart failure Status: Chronic Assessment and plan: Her BNP was close to 400. This may be due to her lung disease but would evaluate with echocardiogram. Current Visit: No Qualifiers: Congestive heart failure type: diastolic Congestive heart failure chronicity: acute on chronic Qualified Code(s): I50.33 - Acute on chronic diastolic (congestive) heart failure History of Present Illness Chief complaint: Confusion and slurred speech History of present illness: Ms. Alvares is a 86 year old female who woke up early yesterday morning and she was a bit confused and her speech was slurred. She thought her blood sugar might be out of kilter but checked it and it was okay. I have recently seen her in the office in fact 2 days ago for evaluation of an abnormal x-ray and CT. She has moderate chronic obstructive pulmonary disease with bullous changes. Also has postinflammatory pulmonary fibrosis primarily involving the upper lobes. She does have some bronchiectasis. We added Anoro and Zithromax 250 mg Sunday and Sunday. I do not think she has started either 1 of these yesterday morning. She is been evaluated here and apparently does not have signs of a stroke. She is feeling much better this morning. She has not had any purulent sputum or fever or anything to indicate an active pulmonary infection. Home Medications Medication Instructions Recorded Confirmed Type Amlodipine Besylate 5 mg PO QAM 08/14/15 03/28/17 History Atorvastatin [Lipitor] 20 mg PO QAM 08/14/15 03/28/17 History Clopidogrel [Plavix] 75 mg PO QAM 08/14/15 03/28/17 History Meloxicam 15 mg PO QAM 08/14/15 03/28/17 History Potassium Chloride Cap/Tab [K Dur] 20 meq PO TID 08/14/15 03/28/17 History Acetaminophen Tab [Tylenol Tab] 325 mg PO Q4H PRN #0 tablet 07/06/16 03/28/17 Rx Furosemide Tab [Lasix Tab] 80 mg PO BID DIURETIC #60 tablet 07/06/16 03/28/17 Rx Insulin NPH Hum/Reg Insulin Hm 35 units SUBCUT AC SUPPER 02/11/17 03/28/17 History [NovoLIN 70/30] Insulin NPH Hum/Reg Insulin Hm 45 units SUBCUT AC BREAKFAST 02/11/17 03/28/17 History [NovoLIN 70/30] Pantoprazole Tab [Protonix Tab] 1 tablet PO DAILY 02/12/17 03/28/17 History Umeclidinium Brm/Vilanterol Tr 1 puff INH DAILY 03/28/17 03/28/17 History [Anoro Ellipta] Allergies Allergy/AdvReac Type Severity Reaction Status Date / Time albuterol Allergy SHORTNESS Verified 02/11/17 09:24 OF BREATH Penicillins Allergy RASH Verified 02/11/17 09:24 Sulfa (Sulfonamide Allergy RASH Verified 02/11/17 09:24 Antibiotics) 12 point system: reviewed and no additional remarkable complaints except as stated - Constitutional Constitutional: Present: fatigue, weight gain - EENT Ears: Present: decreased hearing - Cardiovascular Cardiovascular: Present: dyspnea, dyspnea on exertion - Respiratory Respiratory: Present: cough - Neurological Neurological: Present: focal weakness, numbness Exam (Pulmonay) H&P - Constitutional Vitals: Period Temp Pulse Resp BP Sys/Maldonado Pulse Ox Last 24 Hr 97.0 F-98.3 F 77-106 16-24 103-161/61-99 84-91 Exam: Patient is alert seems oriented. Vital signs normal. Wearing nasal oxygen and O2 sat in the low 90s. HEENT: Pupils react to light. Throat is clear. Neck is supple no bruits. Chest reveals some expiratory wheezes in the bases. Few crackles in the upper lobes. Heart normal rate rhythm no murmurs. Abdomen soft nontender no masses. Somewhat obese. Extremities no clubbing cyanosis or edema. Calves nontender. Medical,Surgical,& Family Hx - Medical History Cardio: History of: CHF, CAD, Hypertension, Cardiovascular Problems ( Cardiomegley) HEENT: History of: Ear Problem (hard of hearing) Endocrine: History of: Diabetes Mellitus (IDDM), Dyslipidemia Rheumatology: History of;: Rheumatoid Arthritis Respiratory: History of: COPD (oxygen dependent) Gastrointestinal: History of: GI Problems (hernia) - Surgical History Cardiac Surgeries: Sugical HX of: Cardiac Catheterization (stents) Thoracic Surgeries: Patient denies;: Organ Transplant - Family History Family History: Reports;: Family Diabetes, Family Heart Disease, Family Hypertension - Social History Smoking Status: Former smoker Frequency of Alcohol Use: None Type of Drug Use: None Results - Labs CBC & BMP: 03/29/17 06:46 03/29/17 08:27 Lab Results: I have reviewed the past 24 hour labs - Diagnostic Findings Procedure: Chest x-ray: image reviewed by me (Interstitial scarring mostly in the upper lobes. No acute infiltrates. Cardiomegaly) Quality Measures - Stroke Onset of Symptoms Date: 03/28/17 Onset of Symptoms Time: 04:00 Symptom Onset Unknown: No
[2017-03-29] MEDS: ANORO ELLIPTA INH SCH (12:02)
--- NOTE | 2017-03-29 15:00 | Hospitalist Progress Note ---
Assessment and Plan (1) Insulin dependent diabetes mellitus Status: Chronic Assessment and plan: SSI for now Current Visit: No (2) Hypertension Status: Chronic Current Visit: No Qualifiers: Hypertension type: essential hypertension Qualified Code(s): I10 - Essential (primary) hypertension (3) Rheumatoid arthritis Status: Chronic Current Visit: No (4) Fibrosis, pulmonary, interstitial, diffuse Status: Chronic Assessment and plan: Consult Pulmonary Current Visit: No (5) Slurred speech Status: Acute Assessment and plan: CT and MRI without acute process Neurology signed off Could be possible due to hypoglycemia, patient reports to me that she did eat before checking her fsg Current Visit: Yes Hospitalist: Subjective Interval history: No acute events overnight. Slurred speech is resolved. Patient still reports sob. She reports that she is followed by Dr. Garibay. Exam - Constitutional Vitals: Period Temp Pulse Resp BP Sys/Maldonado Pulse Ox Last 24 Hr 97.0 F-98.3 F 77-106 16-24 103-161/61-99 84-91 General appearance: over weight - Head Head exam: Present: normocephalic, atraumatic - Eye Eye exam: Present: EOMI Pupils: Present: DEDE - ENT ENT exam: Present: normal exam - Neck Neck exam: Present: normal inspection - Respiratory Respiratory exam: Present: clear to auscultation bilaterally, wheezes - Cardiovascular Cardiovascular exam: Present: regular rate and rhythm - GI/Abdominal GI/Abdominal exam: Present: normal bowel sounds, soft. Absent: tenderness, rebound - Extremities Exam Extremities exam: Present: normal inspection - Back Exam Back exam: Present: normal inspection - Neurological Exam Neurological exam: Present: alert, oriented X3 - Psychiatric Psychiatric exam: Present: normal affect, normal mood - Skin Skin exam: Present: warm, intact Results - Labs CBC & BMP: 03/29/17 06:46 03/29/17 08:27 Quality Measures - Stroke Onset of Symptoms Date: 03/28/17 Onset of Symptoms Time: 04:00 Symptom Onset Unknown: No
--- NOTE | 2017-03-29 17:30 | ECHO Report ---
Awilda Alvares Exam Date: 03/29/2017 14:34 Referring Physician: Technologist: minerva Alvares ARDMS, RVT Age: 86 Ht (in): 66 Wt (lb): 241 Gender: F Exam Location: [facility] Echo Indications: Essential (primary) hypertension, Slurred speech, Dyslipidemia, CHF, CAD, IDDM BP: 106 / 61 HR: 85 Rhythm: Sinus Technical Quality: Very technically difficult study IMPRESSIONS Very technically difficult study. Mildly dilated left ventricle with Mild mitral valve regurgitation. Mild tricuspid valve regurgitation. left ventricular ejection fraction is estimated at 25-30%. Mild concentric left ventricular hypertrophy. MEASUREMENTS (Male / Female) Normal Values 2D ECHO LV Diastolic Diameter PLAX 5.5 cm 4.2 - 5.9 / 3.9 - 5.3 cm LV Systolic Diameter PLAX 3.9 cm LV Fractional Shortening PLAX 29.9 % IVS Diastolic Thickness 1.1 cm 0.6 - 1.0 / 0.6 - 0.9 cm LVPW Diastolic Thickness 1.4 cm 0.6 - 1.0 / 0.6 - 0.9 cm RV Internal Dim ED PLAX 3.8 cm Aortic Root Diameter 3.8 cm LA Systolic Diameter LX 3.6 cm 3.0 - 4.0 / 2.7 - 3.8 cm DOPPLER TR Peak Velocity 326.0 cm/s TR Peak Gradient 42.5 mmHg FINDINGS Left Ventricle Mildly increased left ventricular cavity size. Mild concentric left ventricular hypertrophy. Left ventricular ejection fraction is estimated at 25-30%. Right Ventricle The right ventricle is normal in size and function. Right Atrium The right atrium is normal in size. Left Atrium The left atrium is normal in size. Mitral Valve Morphologically normal mitral valve. Mild mitral valve regurgitation. Aortic Valve Morphologically normal aortic valve without significant sclerosis or stenosis. There is no aortic regurgitation. Tricuspid Valve Morphologically normal tricuspid valve. Mild tricuspid valve regurgitation. Tricuspid regurgitation velocities suggest a PAP of 53 mmHg. Pulmonic Valve Morphologically normal pulmonic valve without significant stenosis. There is no pulmonic regurgitation. Pericardium Normal pericardium without effusion. Aorta Normal ascending aorta dimension. James Carter (Electronically Signed) Final Date: 29 March 2017 17:29
[2017-03-30 05:46] LABS: Basophils # 0.1 10*3/uL (0.0-0.2); Eosinophils # 0.8 10*3/uL (0.0-0.87); Eosinophils % 9.6 % (0.00-10.9); Hematocrit 40.4 VOL% (35.7-47.0); Hemoglobin 12.6 GM/DL (12.0-16.0); Immature Granulocytes % 0.2 %; Immature Granulocytes Absolute 0.02 #; Lymphocytes % 23.2 % (21.3-54.2); Mean Corpuscular HGB Conc 31.2 GM/DL (32-36); Mean Corpuscular Hemoglobin 24 PG (27-34); Mean Corpuscular Volume 76.1 FL (87-102); Mean Platelet Volume 12.5 FL (9.6-12.0); Monocytes # 0.7 10*3/uL (0.11-0.8); Monocytes % 8.5 % (1.7-12.7); Neutrophils % 57.5 % (38.7-73.9); Platelet Count 264 T/CUMM (130-400); Red Blood Count 5.31 MC/CUMM (3.8-5.5); Red Cell Distribution Width 17.1 % (9.3-17.3); White Blood Count 8.7 T/CUMM (4-12)
[2017-03-30 06:14] LABS: Calcium 8.7 MG/DL (8.5-10.1); Magnesium 1.9 MG/DL (1.8-2.4); Osmolality,Calculated 285.8 MOS/KG (273-304); Potassium 3.8 MMOL/L (3.5-5.1)
--- NOTE | 2017-03-30 08:34 | Pulmonology Progress Note ---
Pulmonary - PN: Subj Interval history: This 86-year-old black female came in with increased shortness of breath. Her problems are multifactorial. She has some postinflammatory pulmonary fibrosis, COPD, and it appears cardiomyopathy with congestive heart failure. She has bronchiectasis as well. I think the congestive heart failure is the cause for the current admission. She is on bronchodilators for her COPD as she is wheezing. Exam (Progress Note) - Constitutional Vitals: Period Temp Pulse Resp BP Sys/Maldonado Pulse Ox Last 24 Hr 96.8 F-97.8 F 96-106 18-20 106-128/55-78 88-91 Exam: She is alert oriented vital signs normal. Pupils react to light. Throat is clear. Neck supple no bruits. Chest shows some bilateral expiratory wheezes. She has crackles primarily in the upper lobes. Heart normal rate rhythm no murmurs. Abdomen soft nontender obese. Extremities no clubbing cyanosis trace of edema. Calves nontender Results - Labs CBC & BMP: 03/30/17 04:37 03/30/17 04:37 Lab Results: I have reviewed the past 24 hour labs Assessment and Plan (1) Postinflammatory pulmonary fibrosis Status: Acute Assessment and plan: I have recently evaluated her CTs. Her interstitial lung disease is worse in the upper lobes but it is around some bullous emphysema. She does have some bronchiectasis. I do not think this fits the pattern of IPF. She has had an abnormal x-ray and CT for at least 5 years and is been little change. PFTs look the same as they did 5 years ago. No specific treatment for this. 03/30/2017 most of what we see on her CT scan is chronic and patchy consistent with postinflammatory fibrosis. She does have bullous emphysema as well. Little can be done for this formal fibrosis but it should not progress with time. Current Visit: Yes (2) COPD (chronic obstructive pulmonary disease) Status: Acute Assessment and plan: Previous smoker. Chronically on inhalers. Recently started Anoro. She should stay on that. She is also on home oxygen 03/30/2017 she is wheezing and we are treating her with bronchodilators. I think at least some of the wheezing is due to heart failure will get better with more vigorous diuresis. Current Visit: Yes (3) Bronchiectasis Status: Acute Assessment and plan: She was recently started on Zithromax 250 mg Sunday. Would stay on that. No signs of any active infection. 03/30/2017 needs to stay on Zithromax Sunday. Current Visit: Yes (4) Congestive heart failure Status: Chronic Assessment and plan: Her BNP was close to 400. This may be due to her lung disease but would evaluate with echocardiogram. 03/30/2017 echo shows severe cardiomyopathy ejection fraction 25% and LVH. This is acute on chronic both systolic and diastolic congestive heart failure. Needs more diuresis, will give IV Current Visit: No Qualifiers: Congestive heart failure type: diastolic Congestive heart failure chronicity: acute on chronic Qualified Code(s): I50.33 - Acute on chronic diastolic (congestive) heart failure
[2017-03-30] MEDS: INSULIN LISPRO 100 UNIT/ML SUBCUT SCH ×3 (08:51→17:05)
[2017-03-30] MEDS: MELOXICAM 7.5 MG TABLET PO SCH (10:03)
[2017-03-30] MEDS: PANTOPRAZOLE 40 MG TABLET PO SCH (10:04)
[2017-03-30] MEDS: ATORVASTATIN 20 MG TABLET PO SCH (10:04)
[2017-03-30] MEDS: POTASSIUM CHLORIDE 20 MEQ TABLET PO SCH ×3 (10:04→22:05)
[2017-03-30] MEDS: CLOPIDOGREL 75 MG TABLET PO SCH (10:04)
[2017-03-30] MEDS: FUROSEMIDE 80 MG TABLET PO SCH (10:04)
[2017-03-30] MEDS: metOLazone 2.5 MG TABLET PO SCH (10:06)
[2017-03-30] MEDS: amLODIPine 5 MG TABLET PO SCH (10:06)
[2017-03-30] MEDS: ANORO ELLIPTA INH SCH (10:27)
--- NOTE | 2017-03-30 11:05 | XRay Report ---
Exam: XR chest 1V Date: 03/30/2017 8:14 AM Comparison: 03/28/2017 Indication: Shortness of breath Technique:[Portable AP sitting chest] Findings: Persistent cardiomegaly with diffuse parenchymal findings. More prominent finding in the left upper lobe. Small pleural effusions with stable mediastinum and osseous structures. Impression: Persistent mild to moderate CHF with small pleural effusions. Minimally progressive possible infiltration in the left upper lobe. Follow-up chest x-ray is recommended to document clearing and exclude additional underlying pathology/mass. PROCEDURE INTERPRETED AT [facility] DEPARTMENT OF RADIOLOGY Final Report Signed by: Dr. aRven Granados
--- NOTE | 2017-03-30 11:30 | Hospitalist Progress Note ---
Assessment and Plan (1) Insulin dependent diabetes mellitus Status: Chronic Assessment and plan: SSI for now Current Visit: Yes (2) Hypertension Status: Chronic Current Visit: Yes Qualifiers: Hypertension type: essential hypertension Qualified Code(s): I10 - Essential (primary) hypertension (3) Rheumatoid arthritis Status: Chronic Current Visit: No (4) Fibrosis, pulmonary, interstitial, diffuse Status: Chronic Assessment and plan: Consult Pulmonary Current Visit: No (5) Slurred speech Status: Resolved Assessment and plan: CT and MRI without acute process Neurology signed off Could be possible due to hypoglycemia, patient reports to me that she did eat before checking her fsg Current Visit: Yes (6) Acute on chronic systolic (congestive) heart failure Status: Acute Assessment and plan: BNP on admission actually lower than it was at last discharge Echo with EF 25-30 Has been started on IV lasix Will repeat CXR and BNP in am, monitor bmp closely She reports previously being followed by Dr. Gastelum, will consult cardiology Current Visit: Yes Hospitalist: Subjective Interval history: No acute events overnight. Patient continues to complain of sob. Exam - Constitutional Vitals: Period Temp Pulse Resp BP Sys/Maldonado Pulse Ox Last 24 Hr 96.8 F-97.8 F 96-106 18-22 106-128/55-78 88-91 General appearance: over weight - Head Head exam: Present: normocephalic, atraumatic - Eye Eye exam: Present: EOMI Pupils: Present: DEDE - ENT ENT exam: Present: normal exam - Neck Neck exam: Present: normal inspection - Respiratory Respiratory exam: Present: clear to auscultation bilaterally. Absent: rhonchi, wheezes - Cardiovascular Cardiovascular exam: Present: regular rate and rhythm - GI/Abdominal GI/Abdominal exam: Present: normal bowel sounds - Extremities Exam Extremities exam: Present: normal inspection. Absent: edema - Back Exam Back exam: Present: normal inspection - Neurological Exam Neurological exam: Present: alert, oriented X3 - Psychiatric Psychiatric exam: Present: normal affect, normal mood - Skin Skin exam: Present: warm, intact Results - Labs CBC & BMP: 03/30/17 04:37 03/30/17 04:37 Quality Measures - Stroke Onset of Symptoms Date: 03/28/17 Onset of Symptoms Time: 04:00 Symptom Onset Unknown: No
[2017-03-30] MEDS: FUROSEMIDE 40 MG/4 ML VIAL IV SCH (14:28)
--- NOTE | 2017-03-30 15:13 | Cardiology Consult Note ---
Fidelina Montaño April RN, am scribing for, and in the presence of, Steven Gastelum MD 15:13. Assessment and Plan - Time spent with patient Time spent with patient: Greater than 30 minutes (Due to assessment, planning, documentation, medication review) (1) Congestive heart failure Status: Acute Current Visit: Yes Qualifiers: Congestive heart failure type: diastolic Congestive heart failure chronicity: acute on chronic Qualified Code(s): I50.33 - Acute on chronic diastolic (congestive) heart failure (2) COPD (chronic obstructive pulmonary disease) Status: Chronic Current Visit: Yes (3) Debility Status: Chronic Current Visit: Yes (4) History of coronary artery disease Status: Chronic Current Visit: Yes (5) Hypertension Status: Chronic Current Visit: Yes Qualifiers: Hypertension type: essential hypertension Qualified Code(s): I10 - Essential (primary) hypertension (6) Insulin dependent diabetes mellitus Status: Chronic Current Visit: Yes History of Present Illness - Data of Consult Patient: known to practice within the last 3 years Consult date: 03/30/17 Requesting Physician: Joaquín Mcnamara - Consult Narrative Reason for consult: CHF History of present illness: Workers Compensation Adjuster: Dr. Gastelum Ms. Alvares is a 86 year old female who was seen Dr. Gastelum in the past, her most recent office visit with him was December 2015. She has a history of CHF, CAD , hypertension, IDDM, dyslipidemia, arthritis, COPD, and hernia. She had heart cath on June 08, 2011 with 80% stenosis in the LAD and 80% stenosis in the dominant RCA. She was evaluated for possible bypass surgery but this was decided against due to her advanced age and multiple comorbidities. On June 14, 2011 she underwent stenting of mid RCA and proximal LAD. Echocardiogram done January 2017 with ejection fraction 50% she has also had vein stripping of her right lower extremity and bilateral cataract surgery family history includes father with heart disease in parents with hypertension. She is a former smoker stating she quit smoking about 20 years ago. She states she rarely uses alcohol, using it about twice a year. She lives at [facility] and she uses a motorized scooter. She says on the morning of March 28 she began to have slurred speech, became diaphoretic, was disoriented, and became more short of breath than usual even using her oxygen. She presented to the emergency department for further evaluation. MRI of the brain showed generalized cerebral atrophy, but found no acute infarct. Carotid ultrasound showed less than 50% stenosis in both internal carotid arteries. Chest x-ray showed mild to moderate CHF with small pleural effusions. EKG showed sinus tachycardia with heart rate of 105. Echocardiogram with ejection fraction 25-30% and mild concentric left ventricular hypertrophy. She has been on Lasix 80 mg IV twice daily. She denies having any chest pain, troponin level on admission were trivial and flat. BNP was 389. Creatinine was slightly elevated at 1.1. Cardiology has been asked to evaluate patient because of CHF. Today she is seen resting in bed with oxygen in use. She is no longer having diaphoresis or slurred speech. She is alert and oriented 3. She states she is slightly more short of breath than normal, but that it has improved since admission. Vital signs been stable. front desk monitor currently shows sinus tachycardia with heart rate of 102. Chest x-ray done today showed persistent mild to moderate CHF with small pleural effusions and minimally progressive possible infiltration the left upper lobe. Today's labs: WBC 8.7 hemoglobin 12.6 hematocrit 40.4 Sodium 144 potassium 3.8 chloride 104 CO2 34 BUN 11 creatinine 0.8 Glucose 111 magnesium 1.9 Cardiology addendum patient examined Chart reviewed and discussed with nurse. Chest x-ray shows cardiomegaly with CHF and a probable left upper lobe infiltrate. EKG shows sinus tach with right axis deviation right bundle branch block and ST- T wave changes. MRI brain negative for acute stroke but does show generalized cerebral atrophy Diabetes CAD, status post mid RCA and proximal LAD stent June 14, 2011 Remote tobacco abuse Obesity Debilitated This patient has multifactorial dyspnea due to COPD, cardiomyopathy, CHF, morbid obesity 109 kg and postinflammatory pulmonary fibrosis. Echo showed ejection fraction of 25-30% with LVH, mild MR, valve sclerosis and moderate TR PA pressure 45 Plan Supplemental O2 Duo nebs 80 mg Lasix IV twice daily and Zaroxolyn 2.5 mg daily BMP in a.m. CC: Joaquín Mcnamara MD - Home Medications and Allergies Home Medications: Home Medications Medication Instructions Recorded Confirmed Type Amlodipine Besylate 5 mg PO QAM 08/14/15 03/28/17 History Atorvastatin [Lipitor] 20 mg PO QAM 08/14/15 03/28/17 History Clopidogrel [Plavix] 75 mg PO QAM 08/14/15 03/28/17 History Meloxicam 15 mg PO QAM 08/14/15 03/28/17 History Potassium Chloride Cap/Tab [K Dur] 20 meq PO TID 08/14/15 03/28/17 History Acetaminophen Tab [Tylenol Tab] 325 mg PO Q4H PRN #0 tablet 07/06/16 03/28/17 Rx Furosemide Tab [Lasix Tab] 80 mg PO BID DIURETIC #60 tablet 07/06/16 03/28/17 Rx Insulin NPH Hum/Reg Insulin Hm 35 units SUBCUT AC SUPPER 02/11/17 03/28/17 History [NovoLIN 70/30] Insulin NPH Hum/Reg Insulin Hm 45 units SUBCUT AC BREAKFAST 02/11/17 03/28/17 History [NovoLIN 70/30] Pantoprazole Tab [Protonix Tab] 1 tablet PO DAILY 02/12/17 03/28/17 History Umeclidinium Brm/Vilanterol Tr 1 puff INH DAILY 03/28/17 03/28/17 History [Anoro Ellipta] Allergies/Adverse Reactions: Allergies Allergy/AdvReac Type Severity Reaction Status Date / Time albuterol Allergy SHORTNESS Verified 02/11/17 09:24 OF BREATH Penicillins Allergy RASH Verified 02/11/17 09:24 Sulfa (Sulfonamide Allergy RASH Verified 02/11/17 09:24 Antibiotics) - Constitutional Constitutional: Present: as per HPI - EENT Eyes: Present: requires corrective lense Ears: Present: decreased hearing. Absent: ear pain, tinnitus Nose, mouth and throat: Absent: epistaxis, headache(s), neck pain - Cardiovascular Cardiovascular: Present: diaphoresis, dyspnea, dyspnea on exertion. Absent: chest pain at rest, chest pain with activity - Respiratory Respiratory: Present: cough, dyspnea, dyspnea on exertion. Absent: hemoptysis - Gastrointestinal Gastrointestinal: Absent: abdominal pain, constipation, diarrhea, hematemesis, hematochezia, melena, nausea, vomiting - Genitourinary Genitourinary: Absent: dysuria, hematuria - Musculoskeletal Musculoskeletal: Present: limited range of motion, muscle weakness. Absent: back pain - Neurological Neurological: Present: abnormal gait. Absent: dizziness, headache(s), syncope - Psychiatric Psychiatric: Absent: anxiety, depression - Endocrine Endocrine: Present: fatigue. Absent: cold intolerance, heat intolerance Medical,Surgical,& Family Hx - Medical History Cardio: History of: CHF, CAD, Hypertension, Cardiovascular Problems ( Cardiomegley) HEENT: History of: Ear Problem (hard of hearing) Endocrine: History of: Diabetes Mellitus (IDDM), Dyslipidemia Rheumatology: History of;: Rheumatoid Arthritis Respiratory: History of: COPD (oxygen dependent) Gastrointestinal: History of: GI Problems (hernia) - Surgical History Cardiac Surgeries: Sugical HX of: Cardiac Catheterization (stents) HEENT Surgeries: Surgical HX of: Eye Surgery (Collateral cataract) Additional Surgical History: Vein stripping of right lower extremity - Family History Family History: Reports;: Family Heart Disease (Father), Family Hypertension ( Father, mother) - Social History Smoking Status: Former smoker (Reports she quit 20 years ago) Have you smoked in the last 12 months: No Frequency of Alcohol Use: Rarely Type of Drug Use: None Lives With:: [place] Functional capacity: wheelchair bound (Motorized scooter) Physical Examination Vital Signs Temp Pulse Resp BP Pulse Ox 97.0 F L 86 24 132/75 88 L 03/28/17 04:58 03/28/17 04:58 03/28/17 04:58 03/28/17 04:58 03/28/17 04:58 General: Present: Appears Well, No Apparent Distress HEENT: Present: PERRL, Mucus Membranes Moist Neck: Present: Supple Neck, Midline Trachea, No Bruit Cardiac: Present: Regular Rhythm, No Murmur, Tachycardia Lungs: Present: Scattered Rhonchi, Oxygen (Via nasal cannula) Neuro: Absent: Resting Tremor, Essential Tremor Abdomen: Present: Soft, Active Bowel Sounds, Non-Tender. Absent: Distended Skin: Present: Other (Left lower extremity is bandaged, she says she has some breakdown around her ankle). Absent: Rash, Suspicious Lesions Musculoskeletal: Present: Decreased Range of Motion, Pain in Joint Extremities: Present: Normal Upper Extr. Pulses, Normal Lower Extr. Pulses ( Unable to assess left lower extremity due to dressing), Edema (Trace to bilateral lower extremities). Absent: Normal Gait Result/EKG - Labs CBC & BMP: 03/30/17 04:37 03/30/17 04:37 Lab Results: I have reviewed the past 24 hour labs Labs: Laboratory Results - last 24 hr 03/29/17 03/29/17 03/29/17 11:27 16:55 19:48 WBC RBC Hgb Hct MCV MCH MCHC RDW Plt Count MPV Neut % (Auto) Lymph % (Auto) [place] % (Auto) Eos % (Auto) Baso % (Auto) Neut # (Auto) Lymph # (Auto) [place] # (Auto) Eos # (Auto) Baso # (Auto) Immature Gran % Nucleated RBC % Immature Gran # Nucleated RBCs # Immature Plt Fraction Sodium Potassium Chloride Carbon Dioxide Anion Gap BUN Creatinine GFR Calculation BUN/Creatinine Ratio Glucose POC Glucose 158 H 124 H 177 H Calculated Osmolality Calcium Magnesium 03/30/17 03/30/17 03/30/17 04:37 04:37 08:25 WBC 8.7 RBC 5.31 Hgb 12.6 Hct 40.4 MCV 76.1 L MCH 24 L MCHC 31.2 L RDW 17.1 Plt Count 264 MPV 12.5 H Neut % (Auto) 57.5 Lymph % (Auto) 23.2 [place] % (Auto) 8.5 Eos % (Auto) 9.6 Baso % (Auto) 1.0 H Neut # (Auto) 5.0 Lymph # (Auto) 2.0 [place] # (Auto) 0.7 Eos # (Auto) 0.8 Baso # (Auto) 0.1 Immature Gran % 0.2 Nucleated RBC % 0.0 Immature Gran # 0.02 Nucleated RBCs # 0.00 Immature Plt Fraction 0.0 Sodium 144 Potassium 3.8 Chloride 104 Carbon Dioxide 34 H Anion Gap 9.8 BUN 11 Creatinine 0.80 GFR Calculation 98 BUN/Creatinine Ratio 13.00 Glucose 111 H POC Glucose 166 H Calculated Osmolality 285.8 Calcium 8.7 Magnesium 1.9 - Diagnostic Findings Procedure: Chest x-ray: report reviewed by me - EKG EKG results: interpreted by me EKG shows: tachycardia, sinus rhythm Quality Measures - Stroke Onset of Symptoms Date: 03/28/17 Onset of Symptoms Time: 04:00 Symptom Onset Unknown: No I, Steven Gastelum MD, personally performed the services described in this documentation, ascribed by Frances Kitchen RN in my presence, and it is both accurate and complete 513 .
[2017-03-30] MEDS: ENOXAPARIN 40 MG/0.4 ML SYRINGE SUBCUT SCH (17:05)
[2017-03-30] MEDS: IPRATROPIUM 500 MCG/2.5 ML NEB RESP TX SCH (19:35)
[2017-03-31] MEDS: INSULIN LISPRO 100 UNIT/ML SUBCUT SCH ×5 (00:50→20:45)
[2017-03-31] MEDS: IPRATROPIUM 500 MCG/2.5 ML NEB RESP TX SCH ×4 (00:59→19:22)
[2017-03-31 05:03] LABS: Calcium 8.7 MG/DL (8.5-10.1); Magnesium 1.7 MG/DL (1.8-2.4); Osmolality,Calculated 280.4 MOS/KG (273-304); Potassium 3.2 MMOL/L (3.5-5.1)
[2017-03-31] MEDS ORDERED: MAGNESIUM SULF RIDER 4 GM in PREMIX 1 EACH IV ONE (06:14)
[2017-03-31] MEDS ORDERED: MAGNESIUM SULF RIDER 2 GM in PREMIX 1 EACH IV PRN (07:24)
[2017-03-31] MEDS ORDERED: MAGNESIUM SULF RIDER 4 GM in PREMIX 1 EACH IV PRN (07:24)
[2017-03-31] MEDS ORDERED: FUROSEMIDE 100 MG/10 ML VIAL ONE (08:24)
[2017-03-31] MEDS: FUROSEMIDE 40 MG/4 ML VIAL IV SCH ×2 (08:35→16:29)
[2017-03-31] MEDS: PANTOPRAZOLE 40 MG TABLET PO SCH (08:36)
[2017-03-31] MEDS: CLOPIDOGREL 75 MG TABLET PO SCH (08:36)
[2017-03-31] MEDS: metOLazone 2.5 MG TABLET PO SCH (08:36)
[2017-03-31] MEDS: MELOXICAM 7.5 MG TABLET PO SCH (08:36)
[2017-03-31] MEDS: ATORVASTATIN 20 MG TABLET PO SCH (08:36)
[2017-03-31] MEDS: amLODIPine 5 MG TABLET PO SCH (08:36)
[2017-03-31] MEDS: POTASSIUM CHLORIDE 20 MEQ TABLET PO SCH ×3 (08:36→20:46)
[2017-03-31] MEDS: ANORO ELLIPTA INH SCH (08:42)
--- NOTE | 2017-03-31 10:08 | XRay Report ---
Portable chest March 31, 2017 Indication: Shortness breath Comparison images from previous day at 0950 hours Findings: There is again coarsened interstitial markings, bronchiectasis and fibrosis bilaterally, relatively unchanged in appearance when compared to prior studies dating back to February 11, 2017. Cardiomediastinal contours are stable. No acute osseous abnormalities. Impression: Pulmonary fibrosis, likely unchanged. Superimposed infectious process not entirely excluded. Correlate clinically. PROCEDURE INTERPRETED AT [facility] DEPARTMENT OF RADIOLOGY Final Report Signed by: Maurilio Paredes
--- NOTE | 2017-03-31 12:45 | Cardiology Progress Note ---
Assessment and Plan (1) Congestive heart failure Status: Acute Current Visit: Yes Qualifiers: Congestive heart failure type: diastolic Congestive heart failure chronicity: acute on chronic Qualified Code(s): I50.33 - Acute on chronic diastolic (congestive) heart failure (2) COPD (chronic obstructive pulmonary disease) Status: Chronic Current Visit: Yes (3) Debility Status: Chronic Current Visit: Yes (4) History of coronary artery disease Status: Chronic Current Visit: Yes (5) Hypertension Status: Chronic Current Visit: Yes Qualifiers: Hypertension type: essential hypertension Qualified Code(s): I10 - Essential (primary) hypertension (6) Insulin dependent diabetes mellitus Status: Chronic Current Visit: Yes Cardiology - PN: Subj Interval history: Cardiology note 86-year-old woman admitted with CHF and left upper lobe infiltrate. Patient has chronic dyspnea due to COPD, cardiomyopathy, CHF, morbid obesity, postinflammatory pulmonary fibrosis. She looks a little better today. More awake. O2 sat 90 on 2 L cannula Blood pressure 110/62 Regular rhythm no gallop Decreased breath sounds with bibasilar crackles. Abdomen obese benign Trace leg edema Lab data today Sodium 140 potassium 3.2 chloride 97 CO2 39 BUN 14 creatinine 0.90 Glucose 115 magnesium 1.7 Impression CHF Obesity 109 kg Status post mid RCA and proximal LAD stent June 14, 2011 Remote tobacco Diabetes Chronic right bundle and right axis deviation Echo showed ejection fraction of 25-30% with LVH, mild MR, aortic valve sclerosis with moderate TR PA pressure 45 Chronic multifactorial dyspnea Debilitated Hypokalemia Plan Extra KCl ordered Continue Lasix and Zaroxolyn Duo nebs BMP a.m. Exam (Progress Note) - Constitutional Vitals: Period Temp Pulse Resp BP Sys/[place] Pulse Ox Last 24 Hr 96.8 F-97.6 F 88-105 15-22 107-114/1-66 88-93 Result/EKG - Labs CBC & BMP: 03/30/17 04:37 03/31/17 02:36 Labs: Laboratory Results - last 24 hr 03/30/17 03/30/17 03/30/17 13:05 16:18 22:01 Sodium Potassium Chloride Carbon Dioxide Anion Gap BUN Creatinine GFR Calculation BUN/Creatinine Ratio Glucose POC Glucose 158 H 135 H Calculated Osmolality Calcium Magnesium B-Natriuretic Peptide 333 H 03/31/17 03/31/17 03/31/17 02:36 08:13 11:39 Sodium 140 Potassium 3.2 L Chloride 97 L Carbon Dioxide 39 H Anion Gap 7.2 BUN 14 Creatinine 0.90 GFR Calculation 85 BUN/Creatinine Ratio 15.00 Glucose 115 H POC Glucose 138 H 142 H Calculated Osmolality 280.4 Calcium 8.7 Magnesium 1.7 L B-Natriuretic Peptide Quality Measures - Stroke Onset of Symptoms Date: 03/28/17 Onset of Symptoms Time: 04:00 Symptom Onset Unknown: No
[2017-03-31] MEDS ORDERED: LACTULOSE 20 GM/30 ML UDCUP PO PRN (14:13)
--- NOTE | 2017-03-31 14:17 | Hospitalist Progress Note ---
Assessment and Plan (1) Insulin dependent diabetes mellitus Status: Chronic Assessment and plan: SSI for now Current Visit: Yes (2) Hypertension Status: Chronic Current Visit: Yes Qualifiers: Hypertension type: essential hypertension Qualified Code(s): I10 - Essential (primary) hypertension (3) Rheumatoid arthritis Status: Chronic Current Visit: No (4) Fibrosis, pulmonary, interstitial, diffuse Status: Chronic Assessment and plan: Pulmonary assisting Current Visit: No (5) Slurred speech Status: Resolved Assessment and plan: CT and MRI without acute process Neurology signed off Could be possible due to hypoglycemia, patient reports to me that she did eat before checking her fsg Current Visit: Yes (6) Acute on chronic systolic (congestive) heart failure Status: Acute Assessment and plan: BNP on admission actually lower than it was at last discharge Echo with EF 25-30 Continue IV lasix BNP is improving She reports previously being followed by Dr. Gastelum Cardiology assisting, metolazone added Current Visit: Yes Hospitalist: Subjective Interval history: No acute events overnight. Patient reports that her breathing is better. She reports constipation. Exam - Constitutional Vitals: Period Temp Pulse Resp BP Sys/[place] Pulse Ox Last 24 Hr 96.8 F-97.6 F 88-105 15-22 107-114/1-66 88-93 General appearance: over weight - Head Head exam: Present: normocephalic, atraumatic - Eye Eye exam: Present: EOMI Pupils: Present: DEDE - ENT ENT exam: Present: normal exam - Neck Neck exam: Present: normal inspection - Respiratory Respiratory exam: Present: clear to auscultation bilaterally. Absent: rhonchi, wheezes - Cardiovascular Cardiovascular exam: Present: regular rate and rhythm - GI/Abdominal GI/Abdominal exam: Present: normal bowel sounds, soft. Absent: tenderness, rebound - Extremities Exam Extremities exam: Present: normal inspection - Back Exam Back exam: Present: normal inspection - Neurological Exam Neurological exam: Present: alert, oriented X3 - Psychiatric Psychiatric exam: Present: normal affect, normal mood - Skin Skin exam: Present: warm, intact Results - Labs CBC & BMP: 03/30/17 04:37 03/31/17 02:36 Quality Measures - Stroke Onset of Symptoms Date: 03/28/17 Onset of Symptoms Time: 04:00 Symptom Onset Unknown: No
--- NOTE | 2017-03-31 16:15 | Pulmonology Progress Note ---
Pulmonary - PN: Subj Interval history: This is an 86-year-old white female with many problems. This includes postinflammatory pulmonary fibrosis, bullous emphysema and underlying COPD. She has recently had congestive heart failure. Her ejection fraction is around 25%. On 03/30/2017 she was wheezing. She is also on bronchodilators. Dr. Garibay is diuresed her. Patient says she is markedly better and on my exam she is wheeze free. Follow-up chest x-ray today shows cardiomegaly. There are generalized increase interstitial markings. These have improved since yesterday 's study. Natruretic peptide remains elevated 333. Sodium is 140 potassium is 3.2. The patient's on Lasix 80 IV push twice daily. She is on potassium replacement. Tomorrow we will check a chest x-ray, BMP and BNP Physical exam. Vital signs see below Psychiatric oriented alert and talkative. Face. Symmetrical. No edema. Neck. Symmetrical kyphotic with no meningismus Lymphatics. No submandibular cervical supraclavicular or epitrochlear adenopathy. Chest. Nearly wheeze free. Slight large airway congestion. Heart. Lateral PMI Abdomen. Nondistended. Positive bowel sounds Lower extremities. Nothing to suggest deep venous thrombophlebitis Neurologic. Cranial nerves are intact with some decreased hearing acuity long track motor function was intact. Sensory exam was not done. Gait was not tested. The remainder of the physical exam was negative Plan. 1. See my note above 2. Chest x-ray, BMP, BNP in the morning Exam (Progress Note) - Constitutional Vitals: Period Temp Pulse Resp BP Sys/[place] Pulse Ox Last 24 Hr 96.8 F-97.6 F 88-105 15-22 107-114/1-66 88-93 Results - Labs CBC & BMP: 03/30/17 04:37 03/31/17 02:36
[2017-03-31] MEDS: POLYETHYLENE GLYCOL POWDER 17 GM PACK PO SCH (16:27)
[2017-03-31] MEDS: ENOXAPARIN 40 MG/0.4 ML SYRINGE SUBCUT SCH (16:29)
[2017-04-01] MEDS: IPRATROPIUM 500 MCG/2.5 ML NEB RESP TX SCH ×4 (00:16→20:09)
[2017-04-01 03:38] LABS: Basophils # 0.1 10*3/uL (0.0-0.2); Basophils % 0.7 % (0.0-0.8); Eosinophils # 0.8 10*3/uL (0.0-0.87); Eosinophils % 8.3 % (0.00-10.9); Hematocrit 41.6 VOL% (35.7-47.0); Hemoglobin 13.3 GM/DL (12.0-16.0); Immature Granulocytes % 0.3 %; Immature Granulocytes Absolute 0.03 #; Lymphocytes # 1.8 10*3/uL (1.4-4.0); Lymphocytes % 18.4 % (21.3-54.2); Mean Corpuscular Hemoglobin 24 PG (27-34); Mean Corpuscular Volume 75.2 FL (87-102); Mean Platelet Volume 11.7 FL (9.6-12.0); Monocytes # 0.8 10*3/uL (0.11-0.8); Neutrophils # 6.4 10*3/uL (1.4-7.4); Neutrophils % 64.3 % (38.7-73.9); Platelet Count 312 T/CUMM (130-400); Red Blood Count 5.53 MC/CUMM (3.8-5.5)
[2017-04-01 03:57] LABS: Magnesium 2.1 MG/DL (1.8-2.4); Osmolality,Calculated 282.4 MOS/KG (273-304); Potassium 3.5 MMOL/L (3.5-5.1)
[2017-04-01] MEDS: POTASSIUM CHLORIDE RIDER 10 MEQ in PREMIX 1 EACH IV PRN (06:47)
[2017-04-01] MEDS: INSULIN LISPRO 100 UNIT/ML SUBCUT SCH ×4 (07:59→21:40)
[2017-04-01] MEDS: ATORVASTATIN 20 MG TABLET PO SCH (09:43)
[2017-04-01] MEDS: MELOXICAM 7.5 MG TABLET PO SCH (09:43)
[2017-04-01] MEDS: metOLazone 2.5 MG TABLET PO SCH (09:43)
[2017-04-01] MEDS: PANTOPRAZOLE 40 MG TABLET PO SCH (09:44)
[2017-04-01] MEDS: ANORO ELLIPTA INH SCH (09:44)
[2017-04-01] MEDS: FUROSEMIDE 40 MG/4 ML VIAL IV SCH ×2 (09:44→15:34)
[2017-04-01] MEDS: amLODIPine 5 MG TABLET PO SCH (09:44)
[2017-04-01] MEDS: POTASSIUM CHLORIDE 20 MEQ TABLET PO SCH ×3 (09:44→21:10)
[2017-04-01] MEDS: POLYETHYLENE GLYCOL POWDER 17 GM PACK PO SCH (09:44)
[2017-04-01] MEDS: CLOPIDOGREL 75 MG TABLET PO SCH (09:44)
--- NOTE | 2017-04-01 13:28 | Pulmonology Progress Note ---
Pulmonary - PN: Subj Interval history: This is an 86-year-old white female with many problems. This includes postinflammatory pulmonary fibrosis, bullous emphysema and underlying COPD. She has recently had congestive heart failure. Her ejection fraction is around 25%. On 03/30/2017 she was wheezing. She is also on bronchodilators. Dr. Garibay is diuresed her. Patient says she is markedly better and on my exam she is wheeze free. Follow-up chest x-ray today shows cardiomegaly. There are generalized increase interstitial markings. These have improved since yesterday 's study. Natruretic peptide remains elevated 333. Sodium is 140 potassium is 3.2. The patient's on Lasix 80 IV push twice daily. She is on potassium replacement. Tomorrow we will check a chest x-ray, BMP and BNP 04/01/2017. Patient says she continues to breathe better. She seems slightly more short of breath to me today. Her chest x-ray shows cardiomegaly has increased interstitial markings in the perihilar areas and in the bases. This is an infiltrate in the left upper lung. There is some deviation of her trachea which I think is secondary to her kyphosis. This is a portable PA film. BNP remains elevated 377. Creatinine has increased from 0.8-1.1 with a BUN of 21. Electrolytes are normal. Patient's on Lasix 40 IV push twice daily. I have not changed her treatment today but I will follow-up with the same lab tomorrow. If she experiences in any more shortness of breath I think I would add extra diuresis. Physical exam. Vital signs see below Psychiatric oriented alert and talkative. Face. Symmetrical. No edema. Neck. Symmetrical kyphotic with no meningismus Lymphatics. No submandibular cervical supraclavicular or epitrochlear adenopathy. Chest. Nearly wheeze free. Slight large airway congestion. Heart. Lateral PMI Abdomen. Nondistended. Positive bowel sounds Lower extremities. Nothing to suggest deep venous thrombophlebitis Neurologic. Cranial nerves are intact with some decreased hearing acuity long track motor function was intact. Sensory exam was not done. Gait was not tested. The remainder of the physical exam was negative Plan. 03/31/2017 1. See my note above 2. Chest x-ray, BMP, BNP in the morning 04/01/2017. 1. See today's note above 2. If short of breath increase Lasix 3. Chest x-ray, BNP, BMP in the morning. Exam (Progress Note) - Constitutional Vitals: Period Temp Pulse Resp BP Sys/[place] Pulse Ox Last 24 Hr 96.7 F-97.3 F 70-109 16-22 106-121/60-78 84-96 Results - Labs CBC & BMP: 04/01/17 02:11 04/01/17 02:11
--- NOTE | 2017-04-01 13:42 | XRay Report ---
Portable chest April 01, 2075 foot 4 hours Indication: Shortness of breath. Comparison images dated March 31, 2017 Findings: Cardiomediastinal contours are stable with underlying cardiomegaly. Extensive coarsening of interstitial, stable when compared to examinations dating back to August 24, 2015 and likely represents chronic fibrosis. Focal consolidation within the left upper lobe and developed stranding densities within the left lung base. No acute osseous abnormalities. Visualized upper abdomen is unremarkable. Impression: Chronic interstitial fibrosis with developing consolidations within the left upper lower lobes likely represent superimposed acute process. PROCEDURE INTERPRETED AT [facility] DEPARTMENT OF RADIOLOGY Final Report Signed by: Maurilio Paredes
--- NOTE | 2017-04-01 14:52 | Cardiology Progress Note ---
Assessment and Plan (1) Congestive heart failure Status: Acute Current Visit: Yes Qualifiers: Congestive heart failure type: diastolic Congestive heart failure chronicity: acute on chronic Qualified Code(s): I50.33 - Acute on chronic diastolic (congestive) heart failure (2) COPD (chronic obstructive pulmonary disease) Status: Chronic Current Visit: Yes (3) Debility Status: Chronic Current Visit: Yes (4) History of coronary artery disease Status: Chronic Current Visit: Yes (5) Hypertension Status: Chronic Current Visit: Yes Qualifiers: Hypertension type: essential hypertension Qualified Code(s): I10 - Essential (primary) hypertension (6) Insulin dependent diabetes mellitus Status: Chronic Current Visit: Yes Cardiology - PN: Subj Interval history: Cardiology note 86-year-old female with chronic dyspnea admitted with CHF and probable pneumonia. No temperature. Decreased cough. O2 sat 92 on 3 L cannula Blood pressure 112/70 Regular rhythm no murmur Decreased breath sounds weak inspiratory effort Obese abdomen benign Trace leg edema Lab data today white count 10.0 hemoglobin 13.3 hematocrit 41.6 Sodium 140 potassium 3.5 chloride 94 CO2 43 BUN 21 creatinine 1.10 Glucose 115 BNP 377 Impression CHF Morbid obesity 109 kg Status post mid RCA and proximal LAD stent June 14, 2011 Remote smoker Diabetes Chronic right bundle and right axis deviation Echo showed ejection fraction 25-30% with LVH, mild MR, aortic valve sclerosis, moderate TR PA pressure 45 Chronic multifactorial dyspnea Debilitated Plan Continue Lasix 40 mg IV twice daily . Increase Zaroxolyn 5 mg every morning Duo nebs BMP in a.m. Exam (Progress Note) - Constitutional Vitals: Period Temp Pulse Resp BP Sys/[place] Pulse Ox Last 24 Hr 96.7 F-97.3 F 70-109 16-22 106-121/60-78 84-96 Result/EKG - Labs CBC & BMP: 04/01/17 02:11 04/01/17 02:11 Labs: Laboratory Results - last 24 hr 03/31/17 03/31/17 04/01/17 15:55 19:47 02:11 WBC 10.0 RBC 5.53 H Hgb 13.3 Hct 41.6 MCV 75.2 L MCH 24 L MCHC 32.0 RDW 17.0 Plt Count 312 MPV 11.7 Neut % (Auto) 64.3 Lymph % (Auto) 18.4 L [place] % (Auto) 8.0 Eos % (Auto) 8.3 Baso % (Auto) 0.7 Neut # (Auto) 6.4 Lymph # (Auto) 1.8 [place] # (Auto) 0.8 Eos # (Auto) 0.8 Baso # (Auto) 0.1 Immature Gran % 0.3 Nucleated RBC % 0.0 Immature Gran # 0.03 Nucleated RBCs # 0.00 Immature Plt Fraction 0.0 Sodium Potassium Chloride Carbon Dioxide Anion Gap BUN Creatinine GFR Calculation BUN/Creatinine Ratio Glucose POC Glucose 163 H 254 H Calculated Osmolality Calcium Magnesium B-Natriuretic Peptide 04/01/17 04/01/17 04/01/17 02:11 02:11 07:34 WBC RBC Hgb Hct MCV MCH MCHC RDW Plt Count MPV Neut % (Auto) Lymph % (Auto) [place] % (Auto) Eos % (Auto) Baso % (Auto) Neut # (Auto) Lymph # (Auto) [place] # (Auto) Eos # (Auto) Baso # (Auto) Immature Gran % Nucleated RBC % Immature Gran # Nucleated RBCs # Immature Plt Fraction Sodium 140 Potassium 3.5 Chloride 94 L Carbon Dioxide 43 H Anion Gap 6.5 BUN 21 H Creatinine 1.10 H GFR Calculation 66 BUN/Creatinine Ratio 19.00 Glucose 115 H POC Glucose 129 H Calculated Osmolality 282.4 Calcium 9.0 Magnesium 2.1 B-Natriuretic Peptide 377 H 04/01/17 11:28 WBC RBC Hgb Hct MCV MCH MCHC RDW Plt Count MPV Neut % (Auto) Lymph % (Auto) [place] % (Auto) Eos % (Auto) Baso % (Auto) Neut # (Auto) Lymph # (Auto) [place] # (Auto) Eos # (Auto) Baso # (Auto) Immature Gran % Nucleated RBC % Immature Gran # Nucleated RBCs # Immature Plt Fraction Sodium Potassium Chloride Carbon Dioxide Anion Gap BUN Creatinine GFR Calculation BUN/Creatinine Ratio Glucose POC Glucose 176 H Calculated Osmolality Calcium Magnesium B-Natriuretic Peptide Quality Measures - Stroke Onset of Symptoms Date: 03/28/17 Onset of Symptoms Time: 04:00 Symptom Onset Unknown: No
--- NOTE | 2017-04-01 15:21 | Hospitalist Progress Note ---
Assessment and Plan (1) Insulin dependent diabetes mellitus Status: Chronic Assessment and plan: SSI for now Current Visit: Yes (2) Hypertension Status: Chronic Current Visit: Yes Qualifiers: Hypertension type: essential hypertension Qualified Code(s): I10 - Essential (primary) hypertension (3) Rheumatoid arthritis Status: Chronic Current Visit: No (4) Fibrosis, pulmonary, interstitial, diffuse Status: Chronic Assessment and plan: Pulmonary assisting Current Visit: No (5) Slurred speech Status: Resolved Assessment and plan: CT and MRI without acute process Neurology signed off Could be possible due to hypoglycemia, patient reports to me that she did eat before checking her fsg Current Visit: Yes (6) Acute on chronic systolic (congestive) heart failure Status: Acute Assessment and plan: BNP on admission actually lower than it was at last discharge Echo with EF 25-30 Continue IV lasix BNP is improving She reports previously being followed by Dr. Gastelum Cardiology assisting, metolazone increased today Current Visit: Yes Hospitalist: Subjective Interval history: No acute events overnight. Patient reports that her breathing is basically unchanged. Exam - Constitutional Vitals: Period Temp Pulse Resp BP Sys/[place] Pulse Ox Last 24 Hr 96.7 F-97.3 F 70-109 16-22 106-121/60-78 84-96 General appearance: over weight - Head Head exam: Present: normocephalic, atraumatic - Eye Eye exam: Present: EOMI Pupils: Present: DEDE - ENT ENT exam: Present: normal exam - Neck Neck exam: Present: normal inspection - Respiratory Respiratory exam: Present: clear to auscultation bilaterally. Absent: rhonchi, wheezes - Cardiovascular Cardiovascular exam: Present: regular rate and rhythm - GI/Abdominal GI/Abdominal exam: Present: normal bowel sounds, soft. Absent: tenderness, rebound - Extremities Exam Extremities exam: Present: normal inspection - Back Exam Back exam: Present: normal inspection - Neurological Exam Neurological exam: Present: alert, oriented X3 - Psychiatric Psychiatric exam: Present: normal affect, normal mood - Skin Skin exam: Present: warm, intact Results - Labs CBC & BMP: 04/01/17 02:11 04/01/17 02:11 Quality Measures - Stroke Onset of Symptoms Date: 03/28/17 Onset of Symptoms Time: 04:00 Symptom Onset Unknown: No
[2017-04-01] MEDS: ENOXAPARIN 40 MG/0.4 ML SYRINGE SUBCUT SCH (15:34)
[2017-04-02] MEDS: IPRATROPIUM 500 MCG/2.5 ML NEB RESP TX SCH ×4 (01:02→19:44)
[2017-04-02 03:53] LABS: Calcium 9.3 MG/DL (8.5-10.1); Osmolality,Calculated 281.5 MOS/KG (273-304); Potassium 3.7 MMOL/L (3.5-5.1)
[2017-04-02] MEDS: INSULIN LISPRO 100 UNIT/ML SUBCUT SCH ×4 (07:30→20:12)
[2017-04-02] MEDS: ANORO ELLIPTA INH SCH (09:25)
[2017-04-02] MEDS: FUROSEMIDE 40 MG/4 ML VIAL IV SCH ×2 (09:47→16:37)
[2017-04-02] MEDS: AZITHROMYCIN 250 MG TABLET PO SCH (09:49)
[2017-04-02] MEDS: MELOXICAM 7.5 MG TABLET PO SCH (09:49)
[2017-04-02] MEDS: amLODIPine 5 MG TABLET PO SCH (09:49)
[2017-04-02] MEDS: PANTOPRAZOLE 40 MG TABLET PO SCH (09:49)
[2017-04-02] MEDS: metOLazone 5 MG TABLET PO SCH (09:49)
[2017-04-02] MEDS: ATORVASTATIN 20 MG TABLET PO SCH (09:49)
[2017-04-02] MEDS: CLOPIDOGREL 75 MG TABLET PO SCH (09:49)
[2017-04-02] MEDS: POTASSIUM CHLORIDE 20 MEQ TABLET PO SCH ×3 (09:49→20:14)
--- NOTE | 2017-04-02 10:00 | XRay Report ---
Portable chest April 02, 2017 Indication: Difficulty breathing Comparison images from previous day at 0554 hours Findings: Chronic interstitial fibrotic changes with stable appearance of the left upper lobe consolidation. No large effusions. No acute osseous abnormalities. Impression: Superimposed left upper lobe pneumonia: Chronic interstitial fibrosis, unchanged in appearance since previous study PROCEDURE INTERPRETED AT [facility] DEPARTMENT OF RADIOLOGY Final Report Signed by: Maurilio Paredes
--- NOTE | 2017-04-02 11:30 | Hospitalist Progress Note ---
Assessment and Plan (1) Insulin dependent diabetes mellitus Status: Chronic Assessment and plan: 1)DMT2- glucose controlled. continue SSI 2)acute on chronic systolic CHF- diuresing. lungs with some rales, check CXR given her history of pulmonary fibrosis. no shortness of breath, sats ok. EF 25- 30%. Dr Gastelum is following her. CXR this morning shows chronic interstitial fibrosis with GRICELDA consolidation, unchanged. 3)pulmonary fibrosis and COPD- Pulmonary following. On nebs, azithro. no wheezes. Current Visit: Yes (2) Rheumatoid arthritis Status: Chronic Current Visit: No (3) Fibrosis, pulmonary, interstitial, diffuse Status: Chronic Current Visit: No (4) Debility Status: Chronic Current Visit: Yes (5) COPD (chronic obstructive pulmonary disease) Status: Chronic Current Visit: Yes (6) Acute on chronic systolic (congestive) heart failure Status: Acute Current Visit: Yes Hospitalist: Subjective Interval history: Mrs Alvares is feeling ok this morning. She is not short of breath while lying flat in bed. Denies pain also. Eating ok. Exam - Constitutional Vitals: Period Temp Pulse Resp BP Sys/[place] Pulse Ox Last 24 Hr 97.0 F-98 F 51-106 18-20 102-153/56-100 85-94 General appearance: no acute distress, morbidly obese - Eye Eye exam: Present: EOMI. Absent: scleral icterus - Respiratory Respiratory exam: Present: rales (few rales at bases, decreased breath sounds at bases) - Cardiovascular Cardiovascular exam: Present: regular rate and rhythm - GI/Abdominal GI/Abdominal exam: Present: normal bowel sounds, soft. Absent: tenderness - Extremities Exam Extremities exam: Absent: edema - Neurological Exam Neurological exam: Present: alert, oriented X3 Results - Labs CBC & BMP: 04/01/17 02:11 04/02/17 02:19 Lab Results: I have reviewed the past 24 hour labs Quality Measures - Stroke Onset of Symptoms Date: 03/28/17 Onset of Symptoms Time: 04:00 Symptom Onset Unknown: No
[2017-04-02] MEDS: POLYETHYLENE GLYCOL POWDER 17 GM PACK PO SCH (12:25)
--- NOTE | 2017-04-02 13:47 | Pulmonology Progress Note ---
Pulmonary - PN: Subj Interval history: This is an 86-year-old white female with many problems. This includes postinflammatory pulmonary fibrosis, bullous emphysema and underlying COPD. She has recently had congestive heart failure. Her ejection fraction is around 25%. On 03/30/2017 she was wheezing. She is also on bronchodilators. Dr. Garibay is diuresed her. Patient says she is markedly better and on my exam she is wheeze free. Follow-up chest x-ray today shows cardiomegaly. There are generalized increase interstitial markings. These have improved since yesterday 's study. Natruretic peptide remains elevated 333. Sodium is 140 potassium is 3.2. The patient's on Lasix 80 IV push twice daily. She is on potassium replacement. Tomorrow we will check a chest x-ray, BMP and BNP 04/01/2017. Patient says she continues to breathe better. She seems slightly more short of breath to me today. Her chest x-ray shows cardiomegaly has increased interstitial markings in the perihilar areas and in the bases. This is an infiltrate in the left upper lung. There is some deviation of her trachea which I think is secondary to her kyphosis. This is a portable PA film. BNP remains elevated 377. Creatinine has increased from 0.8-1.1 with a BUN of 21. Electrolytes are normal. Patient's on Lasix 40 IV push twice daily. I have not changed her treatment today but I will follow-up with the same lab tomorrow. If she experiences in any more shortness of breath I think I would add extra diuresis. 04/02/2017. Today's chest x-ray shows cardiomegaly. There are no infiltrates and changes that went along with pulmonary edema appear to have resolved. BNP has dropped to 295. Electrolytes are normal. Creatinine is 1.10 with a BUN of 24. Earlier this morning the patient has experienced some shortness of breath but this is resolved and she says she is breathing fine at the present time. She denies any chest pain. Overall I think she is better the past few days. Physical exam. Vital signs see below Psychiatric oriented alert and talkative. Face. Symmetrical. No edema. Neck. Symmetrical kyphotic with no meningismus Lymphatics. No submandibular cervical supraclavicular or epitrochlear adenopathy. Chest. wheeze free. Slight large airway congestion has nearly resolved.. Heart. Lateral PMI Abdomen. Nondistended. Positive bowel sounds Lower extremities. Nothing to suggest deep venous thrombophlebitis Neurologic. Cranial nerves are intact with some decreased hearing acuity long track motor function was intact. Sensory exam was not done. Gait was not tested. The remainder of the physical exam was negative Plan. 03/31/2017 1. See my note above 2. Chest x-ray, BMP, BNP in the morning 04/01/2017. 1. See today's note above 2. If short of breath increase Lasix 3. Chest x-ray, BNP, BMP in the morning. 04/02/2017. 1. See today's note 2. Chest x-ray is improved 3. Chest x-ray and lab order for tomorrow morning Exam (Progress Note) - Constitutional Vitals: Period Temp Pulse Resp BP Sys/[place] Pulse Ox Last 24 Hr 97.0 F-98 F 51-106 18-20 102-153/56-100 85-94 Results - Labs CBC & BMP: 04/01/17 02:11 04/02/17 02:19
--- NOTE | 2017-04-02 15:00 | Cardiology Progress Note ---
Assessment and Plan (1) Congestive heart failure Status: Acute Current Visit: Yes Qualifiers: Congestive heart failure type: diastolic Congestive heart failure chronicity: acute on chronic Qualified Code(s): I50.33 - Acute on chronic diastolic (congestive) heart failure (2) COPD (chronic obstructive pulmonary disease) Status: Chronic Current Visit: Yes (3) Debility Status: Chronic Current Visit: Yes (4) History of coronary artery disease Status: Chronic Current Visit: Yes (5) Hypertension Status: Chronic Current Visit: Yes Qualifiers: Hypertension type: essential hypertension Qualified Code(s): I10 - Essential (primary) hypertension (6) Insulin dependent diabetes mellitus Status: Chronic Current Visit: Yes Cardiology - PN: Subj Interval history: Cardiology note 86-year-old woman admitted with shortness of breath CHF and probable pneumonia. Currently receiving Lasix 80 mg IV twice daily and 5 mg Zaroxolyn every morning. Patient is sedentary and has very limited mobility. O2 sat 94 on 3 L cannula. Blood pressure 110/80. Regular rhythm Decreased breath sounds with bibasilar crackles and weak respiratory effort Abdomen obese soft benign. Trace leg edema. Lab data today Sodium 139 potassium 3.7 chloride 92 CO2 40 BUN 24 creatinine 1.10 glucose 131 BNP 295 Impression CHF Probable left upper lobe pneumonia Morbid obesity 109 kg Remote smoker Diabetes Chronic right bundle and right axis echo showed ejection fraction 25-30% with LVH, mild MR, aortic valve sclerosis, moderate TR PA pressure 45 Debilitated. She uses a motorized scooter to get around. Chronic multifactorial dyspnea Plan Continue Lasix 80 mg IV twice daily and Zaroxolyn 5 mg every morning Duo nebs BMP in a.m. Azithromycin Exam (Progress Note) - Constitutional Vitals: Period Temp Pulse Resp BP Sys/Maldonado Pulse Ox Last 24 Hr 97.0 F-98 F 51-108 18-20 102-153/56-100 85-94 Result/EKG - Labs CBC & BMP: 04/01/17 02:11 04/02/17 02:19 Labs: Laboratory Results - last 24 hr 04/01/17 04/01/17 04/02/17 16:01 21:01 02:19 Sodium 139 Potassium 3.7 Chloride 92 L Carbon Dioxide 40 H Anion Gap 10.7 BUN 24 H Creatinine 1.10 H GFR Calculation 66 BUN/Creatinine Ratio 21.00 H Glucose 119 H POC Glucose 194 H 233 H Calculated Osmolality 281.5 Calcium 9.3 B-Natriuretic Peptide 04/02/17 04/02/17 04/02/17 02:19 07:29 11:58 Sodium Potassium Chloride Carbon Dioxide Anion Gap BUN Creatinine GFR Calculation BUN/Creatinine Ratio Glucose POC Glucose 131 H 171 H Calculated Osmolality Calcium B-Natriuretic Peptide 295 H Quality Measures - Stroke Onset of Symptoms Date: 03/28/17 Onset of Symptoms Time: 04:00 Symptom Onset Unknown: No
[2017-04-02] MEDS: ENOXAPARIN 40 MG/0.4 ML SYRINGE SUBCUT SCH (16:36)
[2017-04-03] MEDS: IPRATROPIUM 500 MCG/2.5 ML NEB RESP TX SCH ×4 (01:47→19:31)
[2017-04-03 05:37] LABS: Basophils # 0.1 10*3/uL (0.0-0.2); Basophils % 0.9 % (0.0-0.8); Eosinophils # 0.9 10*3/uL (0.0-0.87); Eosinophils % 11.2 % (0.00-10.9); Hematocrit 42.3 VOL% (35.7-47.0); Hemoglobin 13.5 GM/DL (12.0-16.0); Immature Granulocytes % 0.3 %; Immature Granulocytes Absolute 0.02 #; Lymphocytes # 1.9 10*3/uL (1.4-4.0); Lymphocytes % 25.4 % (21.3-54.2); Mean Corpuscular HGB Conc 31.9 GM/DL (32-36); Mean Corpuscular Hemoglobin 24 PG (27-34); Mean Corpuscular Volume 74.1 FL (87-102); Mean Platelet Volume 11.4 FL (9.6-12.0); Monocytes # 0.8 10*3/uL (0.11-0.8); Monocytes % 10.1 % (1.7-12.7); Neutrophils % 52.1 % (38.7-73.9); Platelet Count 291 T/CUMM (130-400); Red Blood Count 5.71 MC/CUMM (3.8-5.5); Red Cell Distribution Width 16.3 % (9.3-17.3); White Blood Count 7.6 T/CUMM (4-12)
[2017-04-03 06:16] LABS: Magnesium 1.8 MG/DL (1.8-2.4); Osmolality,Calculated 283.7 MOS/KG (273-304); Potassium 3.4 MMOL/L (3.5-5.1)
[2017-04-03 06:23] LABS: Band Neutrophils 1 % (0-10); Eosinophils 9 % (0-10); Hypochromasia 2+; Lymphocytes 31 % (20-55); Microcytosis 1+; Ovalocytes Slight; Segmented Neutrophils 53 % (50-85); Total Cells Counted 100
[2017-04-03 06:24] LABS: Platelet Estimate Normal
[2017-04-03] MEDS: INSULIN LISPRO 100 UNIT/ML SUBCUT SCH ×4 (07:30→22:07)
--- NOTE | 2017-04-03 08:12 | XRay Report ---
Portable chest April 03, 2017 at 0604 hours Indication: Shortness of breath Comparison images from previous day at 0530 hours Findings: Cardiomediastinal contours are stable. Chronic interstitial fibrosis with no change in the patchy consolidation within the left upper lobe is interval study. No effusions. No acute osseous abnormalities. Impression: No change in the left upper lobe consolidation superimposed on chronic interstitial fibrotic changes PROCEDURE INTERPRETED AT [facility] DEPARTMENT OF RADIOLOGY Final Report Signed by: Maurilio Paredes
--- NOTE | 2017-04-03 08:51 | Pulmonology Progress Note ---
Pulmonary - PN: Subj Interval history: This 86-year-old black female came in with increased shortness of breath. Her problems are multifactorial. She has some postinflammatory pulmonary fibrosis, COPD, and it appears cardiomyopathy with congestive heart failure. She has bronchiectasis as well. I think the congestive heart failure is the cause for the current admission. She is on bronchodilators for her COPD as she is wheezing. 04/03/2017 patient is feeling better. Her lungs sound a little better. Will change to oral medications. Exam (Progress Note) - Constitutional Vitals: Period Temp Pulse Resp BP Sys/Maldonado Pulse Ox Last 24 Hr 96 F-97.7 F 68-108 16-20 95-131/58-78 88-98 Exam: She is alert oriented vital signs normal. Pupils react to light. Throat is clear. Neck supple no bruits. Chest shows some musical rhonchi. She has a few crackles primarily in the left upper lobe. Heart normal rate rhythm no murmurs. Abdomen soft nontender obese. Extremities no clubbing cyanosis trace of edema. Calves nontender Results - Labs CBC & BMP: 04/03/17 05:11 04/03/17 05:11 Lab Results: I have reviewed the past 24 hour labs - Diagnostic Findings Procedure: Chest x-ray: image reviewed by me (Slightly less interstitial infiltrate) Assessment and Plan (1) Postinflammatory pulmonary fibrosis Status: Acute Assessment and plan: I have recently evaluated her CTs. Her interstitial lung disease is worse in the upper lobes but it is around some bullous emphysema. She does have some bronchiectasis. I do not think this fits the pattern of IPF. She has had an abnormal x-ray and CT for at least 5 years and is been little change. PFTs look the same as they did 5 years ago. No specific treatment for this. 03/30/2017 most of what we see on her CT scan is chronic and patchy consistent with postinflammatory fibrosis. She does have bullous emphysema as well. Little can be done for this formal fibrosis but it should not progress with time. 04/03/2017 this is primarily in the left upper lobe. Some of the right upper lobe as well. 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 Current Visit: Yes (2) COPD (chronic obstructive pulmonary disease) Status: Chronic Assessment and plan: Previous smoker. Chronically on inhalers. Recently started Anoro. She should stay on that. She is also on home oxygen 03/30/2017 she is wheezing and we are treating her with bronchodilators. I think at least some of the wheezing is due to heart failure will get better with more vigorous diuresis. 04/03/2017 she is getting bronchodilators. She does have some musical rhonchi but not wheezing like she wants Sunday. Current Visit: Yes (3) Bronchiectasis Status: Acute Assessment and plan: She was recently started on Zithromax 250 mg Sunday. Would stay on that. No signs of any active infection. 03/30/2017 needs to stay on Zithromax Sunday. 04/03/17 continuing Zithromax prophylaxis. Current Visit: Yes (4) Congestive heart failure Status: Acute Assessment and plan: Her BNP was close to 400. This may be due to her lung disease but would evaluate with echocardiogram. 03/30/2017 echo shows severe cardiomyopathy ejection fraction 25% and LVH. This is acute on chronic both systolic and diastolic congestive heart failure. Needs more diuresis, will give IV 04/03/2017 this is a little better. BNP is down a little. Current Visit: Yes Qualifiers: Congestive heart failure type: diastolic Congestive heart failure chronicity: acute on chronic Qualified Code(s): I50.33 - Acute on chronic diastolic (congestive) heart failure
[2017-04-03] MEDS: POTASSIUM CHLORIDE 20 MEQ TABLET PO SCH ×3 (09:48→22:06)
[2017-04-03] MEDS: MELOXICAM 7.5 MG TABLET PO SCH (09:49)
[2017-04-03] MEDS: PANTOPRAZOLE 40 MG TABLET PO SCH (09:49)
[2017-04-03] MEDS: metOLazone 5 MG TABLET PO SCH (09:49)
[2017-04-03] MEDS: ATORVASTATIN 20 MG TABLET PO SCH (09:49)
[2017-04-03] MEDS: ANORO ELLIPTA INH SCH (09:49)
[2017-04-03] MEDS: CLOPIDOGREL 75 MG TABLET PO SCH (09:49)
[2017-04-03] MEDS: amLODIPine 5 MG TABLET PO SCH (09:49)
[2017-04-03] MEDS: FUROSEMIDE 40 MG/4 ML VIAL IV SCH (09:50)
[2017-04-03] MEDS: POLYETHYLENE GLYCOL POWDER 17 GM PACK PO SCH (10:01)
[2017-04-03] MEDS: POTASSIUM CHLORIDE RIDER 10 MEQ in PREMIX 1 EACH IV PRN ×3 (10:02→18:26)
--- NOTE | 2017-04-03 10:49 | Hospitalist Progress Note ---
Assessment and Plan (1) Insulin dependent diabetes mellitus Status: Chronic Assessment and plan: 1)DMT2- glucose controlled. continue SSI 2)acute on chronic systolic CHF- she has diuresed. No lower extremity edema and exam and CXR improved per Dr Garibay. I have changed her lasix to po after coordinating care with him through the nurses. 3)pulmonary fibrosis and COPD- Pulmonary following. On nebs, azithro 3x a week. no wheezes. changing to oral lasix. 4)dispo- home soon Current Visit: Yes (2) Rheumatoid arthritis Status: Chronic Current Visit: No (3) Fibrosis, pulmonary, interstitial, diffuse Status: Chronic Current Visit: No (4) Debility Status: Chronic Current Visit: Yes (5) COPD (chronic obstructive pulmonary disease) Status: Chronic Current Visit: Yes (6) Acute on chronic systolic (congestive) heart failure Status: Acute Current Visit: Yes Hospitalist: Subjective Interval history: Mrs Alvares is feeling ok this morning, definitely better than on admission. Her questions were answered. She lives at [facility] and uses a motorized scooted. She can sit in the chair and we should start getting her up today. Exam - Constitutional Vitals: Period Temp Pulse Resp BP Sys/Maldonado Pulse Ox Last 24 Hr 96 F-97.7 F 68-108 16-20 95-131/58-78 88-98 General appearance: no acute distress, morbidly obese - Eye Eye exam: Present: EOMI. Absent: scleral icterus - Respiratory Respiratory exam: Present: wheezes. Absent: rales - Cardiovascular Cardiovascular exam: Present: regular rate and rhythm - GI/Abdominal GI/Abdominal exam: Present: normal bowel sounds, soft. Absent: tenderness - Extremities Exam Extremities exam: Absent: edema - Neurological Exam Neurological exam: Present: alert, oriented X3 Results - Labs CBC & BMP: 04/03/17 05:11 04/03/17 05:11 Lab Results: I have reviewed the past 24 hour labs Quality Measures - Stroke Onset of Symptoms Date: 03/28/17 Onset of Symptoms Time: 04:00 Symptom Onset Unknown: No
[2017-04-03] MEDS: ENOXAPARIN 40 MG/0.4 ML SYRINGE SUBCUT SCH (17:02)
--- NOTE | 2017-04-03 18:40 | Cardiology Progress Note ---
Fidelina Montaño April RN, am scribing for, and in the presence of, Timothy Mathias MD 18:38. Assessment and Plan (1) Congestive heart failure Problem details: Systolic and diastolic[suspected to have some sleep apnea] Status: Acute Assessment and plan: A recent echo, heart failure systolic, may be also diastolic Appears to not be on an MASON inhibitor or arb . Will start on Capoten 6.25 mg p.o. now and twice daily. Hold if systolic blood pressure less than 100, potassium greater than 5, or creatinine is greater than 2. Neurology is assessed she probably did not have a stroke Has evidence of a pneumonia, being treated Will watch creatinine and potassium on MASON inhibitor.. Current Visit: Yes Qualifiers: Congestive heart failure type: diastolic Congestive heart failure chronicity: acute on chronic Qualified Code(s): I50.33 - Acute on chronic diastolic (congestive) heart failure (2) COPD (chronic obstructive pulmonary disease) Status: Chronic Current Visit: Yes (3) Debility Status: Chronic Current Visit: Yes (4) History of coronary artery disease Status: Chronic Current Visit: Yes (5) Hypertension Status: Chronic Current Visit: Yes Qualifiers: Hypertension type: essential hypertension Qualified Code(s): I10 - Essential (primary) hypertension (6) Insulin dependent diabetes mellitus Status: Chronic Current Visit: Yes (7) Systolic and diastolic CHF, chronic Status: Acute Current Visit: Yes (8) Hypokalemia Status: Acute Current Visit: Yes Cardiology - PN: Subj Interval history: Dial Painter: Dr. Gastelum Summary: Ms. Alvares is a 86 year old female who was seen Dr. Gastelum in the past, her most recent office visit with him was December 2015. She has a history of CHF, CAD, hypertension, IDDM, dyslipidemia, arthritis, COPD, and hernia. She had heart cath on June 08, 2011 with 80% stenosis in the LAD and 80% stenosis in the dominant RCA. She was evaluated for possible bypass surgery but this was decided against due to her advanced age and multiple comorbidities. On June 14, 2011 she underwent stenting of mid RCA and proximal LAD. Echocardiogram done January 2017 with ejection fraction 50% she has also had vein stripping of her right lower extremity and bilateral cataract surgery. Family history includes father with heart disease in parents with hypertension. She says on the morning of March 28 she began to have slurred speech, became diaphoretic, was disoriented, and became more short of breath than usual even using her oxygen. She presented to the emergency department for further evaluation. MRI of the brain showed generalized cerebral atrophy, but found no acute infarct. Carotid ultrasound showed less than 50% stenosis in both internal carotid arteries. Chest x-ray showed mild to moderate CHF with small pleural effusions. EKG showed sinus tachycardia with heart rate of 105. Echocardiogram done this admission with ejection fraction 25-30% and mild concentric left ventricular hypertrophy. She has been on Lasix 80 mg IV twice daily. She denies having any chest pain, troponin level on admission were trivial and flat. BNP was 389. Creatinine was slightly elevated at 1.1. Cardiology has been asked to evaluate patient because of CHF. Chest x-ray done March 30 showed persistent mild to moderate CHF with small pleural effusions and minimally progressive possible infiltration the left upper lobe. April 03, 2017: Ms. Alvares is seen on 4 E. She denies any chest pain reports her breathing has improved. Oxygen is in use via nasal cannula. 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 Vital signs been stable throughout the night. She is on Lasix 80 mg IV twice daily. Potassium this morning is 3.4, this is been replaced intravenously per protocol. Creatinine has increased slightly to 1.2. BNP has improved to 289. Exam (Progress Note) - Constitutional Vitals: Period Temp Pulse Resp BP Sys/Maldonado Pulse Ox Last 24 Hr 96 F-97.7 F 68-108 16-20 95-131/58-78 88-98 Exam: General: Present: Appears Well, No Apparent Distress HEENT: Present: PERRL, Mucus Membranes Moist Neck: Present: Supple Neck, Midline Trachea, No Bruit Cardiac: Present: Regular Rhythm, No Murmur, Tachycardia Lungs: Present: Scattered Rhonchi, Oxygen (Via nasal cannula) Neuro: Absent: Resting Tremor, Essential Tremor Abdomen: Present: Soft, Active Bowel Sounds, Non-Tender. Absent: Distended Skin: Present: Other (Left lower extremity is bandaged, she says she has some breakdown around her ankle). Absent: Rash, Suspicious Lesions Musculoskeletal: Present: Decreased Range of Motion, Pain in Joint Extremities: Present: Normal Upper Extr. Pulses, Normal Lower Extr. Pulses ( Unable to assess left lower extremity due to dressing), Edema (Trace to bilateral lower extremities). Absent: Normal Gait Result/EKG - Labs CBC & BMP: 04/03/17 05:11 04/03/17 05:11 Lab Results: I have reviewed the past 24 hour labs Labs: Laboratory Results - last 24 hr 04/02/17 04/02/17 04/02/17 11:58 16:00 18:48 WBC RBC Hgb Hct MCV MCH MCHC RDW Plt Count MPV Neut % (Auto) Lymph % (Auto) Alger % (Auto) Eos % (Auto) Baso % (Auto) Neut # (Auto) Lymph # (Auto) Alger # (Auto) Eos # (Auto) Baso # (Auto) Total Counted Immature Gran % Nucleated RBC % Immature Gran # Segmented Neutrophils Band Neutrophils Lymphocytes Monocytes Eosinophils Basophils Nucleated RBCs # Platelet Estimate Immature Plt Fraction Hypochromasia Microcytosis Ovalocytes Morphology Comment Sodium Potassium Chloride Carbon Dioxide Anion Gap BUN Creatinine GFR Calculation BUN/Creatinine Ratio Glucose POC Glucose 171 H 159 H 233 H Calculated Osmolality Calcium Magnesium B-Natriuretic Peptide 04/03/17 04/03/17 04/03/17 05:11 05:11 05:11 WBC 7.6 RBC 5.71 H Hgb 13.5 Hct 42.3 MCV 74.1 L MCH 24 L MCHC 31.9 L RDW 16.3 Plt Count 291 MPV 11.4 Neut % (Auto) 52.1 Lymph % (Auto) 25.4 Alger % (Auto) 10.1 Eos % (Auto) 11.2 H Baso % (Auto) 0.9 H Neut # (Auto) 4.0 Lymph # (Auto) 1.9 Alger # (Auto) 0.8 Eos # (Auto) 0.9 H Baso # (Auto) 0.1 Total Counted 100 Immature Gran % 0.3 Nucleated RBC % 0.0 Immature Gran # 0.02 Segmented Neutrophils 53 Band Neutrophils 1 Lymphocytes 31 Monocytes 5 Eosinophils 9 Basophils 1.0 H Nucleated RBCs # 0.00 Platelet Estimate Normal Immature Plt Fraction 0.0 Hypochromasia 2+ Microcytosis 1+ Ovalocytes Slight Morphology Comment Sodium 138 Potassium 3.4 L Chloride 94 L Carbon Dioxide 39 H Anion Gap 8.4 BUN 29 H Creatinine 1.20 H GFR Calculation 60 BUN/Creatinine Ratio 24.00 H Glucose 149 H POC Glucose Calculated Osmolality 283.7 Calcium 9.0 Magnesium 1.8 B-Natriuretic Peptide 289 H 04/03/17 08:07 WBC RBC Hgb Hct MCV MCH MCHC RDW Plt Count MPV Neut % (Auto) Lymph % (Auto) Alger % (Auto) Eos % (Auto) Baso % (Auto) Neut # (Auto) Lymph # (Auto) Alger # (Auto) Eos # (Auto) Baso # (Auto) Total Counted Immature Gran % Nucleated RBC % Immature Gran # Segmented Neutrophils Band Neutrophils Lymphocytes Monocytes Eosinophils Basophils Nucleated RBCs # Platelet Estimate Immature Plt Fraction Hypochromasia Microcytosis Ovalocytes Morphology Comment Sodium Potassium Chloride Carbon Dioxide Anion Gap BUN Creatinine GFR Calculation BUN/Creatinine Ratio Glucose POC Glucose 133 H Calculated Osmolality Calcium Magnesium B-Natriuretic Peptide - Diagnostic Findings Procedure: Chest x-ray: report reviewed by me - EKG EKG results: interpreted by me EKG shows: sinus rhythm Quality Measures - Stroke Onset of Symptoms Date: 03/28/17 Onset of Symptoms Time: 04:00 Symptom Onset Unknown: No I, Timothy Mathias MD, personally performed the services described in this documentation, ascribed by Frances Kitchen RN in my presence, and it is both accurate and complete 838 .
[2017-04-03] MEDS: CAPTOPRIL 6.25 MG TABLET PO SCH (23:51)
[2017-04-04] MEDS: IPRATROPIUM 500 MCG/2.5 ML NEB RESP TX SCH ×2 (00:27→08:34)
--- NOTE | 2017-04-04 07:17 | XRay Report ---
Exam: XR chest 1V portable Date: 04/04/2017 4:00 AM Indication: Follow-up ventilator Comparison: 04/03/2017 Technical: AP Findings: Cardiomegaly is present. Alveolar interstitial densities are present in the lung alexander bilaterally with tiny low volume effusions. Minimal thickening of the minor fissure. Trachea slightly deviated to right lateral marginal osteophytes are present. Oxygen tubing and external cardiac leads are present. Impression: 1. Persistent cardiomegaly 2. Bilateral pulmonary infiltrates superimposed on COPD change. Consolidation is suspected in the left upper chest. 3. No significant interval change PROCEDURE INTERPRETED AT [facility] DEPARTMENT OF RADIOLOGY Final Report Signed by: Dr. Andrea Boss
--- NOTE | 2017-04-04 07:33 | Pulmonology Progress Note ---
Pulmonary - PN: Subj Interval history: This 86-year-old black female came in with increased shortness of breath. Her problems are multifactorial. She has some postinflammatory pulmonary fibrosis, COPD, and it appears cardiomyopathy with congestive heart failure. She has bronchiectasis as well. I think the congestive heart failure is the cause for the current admission. She is on bronchodilators for her COPD as she is wheezing. 04/03/2017 patient is feeling better. Her lungs sound a little better. Will change to oral medications. 04/04/2017 again she is feeling a little better. Able to take a few steps around the room which is about all she was doing at home. Oxygen saturation 89% on room air. Will need home oxygen. Still having some mild wheezing. Exam (Progress Note) - Constitutional Vitals: Period Temp Pulse Resp BP Sys/Maldonado Pulse Ox Last 24 Hr 96.0 F-98.2 F 71-105 16-20 99-131/56-76 87-99 Exam: She is alert oriented vital signs normal. Pupils react to light. Throat is clear. Neck supple no bruits. Chest shows some musical rhonchi and wheezes. She has a few crackles primarily in the left upper lobe. Heart normal rate rhythm no murmurs. Abdomen soft nontender obese. Extremities no clubbing cyanosis trace of edema. Calves nontender Results - Labs CBC & BMP: 04/03/17 05:11 04/03/17 05:11 Lab Results: I have reviewed the past 24 hour labs Assessment and Plan (1) Postinflammatory pulmonary fibrosis Status: Acute Assessment and plan: I have recently evaluated her CTs. Her interstitial lung disease is worse in the upper lobes but it is around some bullous emphysema. She does have some bronchiectasis. I do not think this fits the pattern of IPF. She has had an abnormal x-ray and CT for at least 5 years and is been little change. PFTs look the same as they did 5 years ago. No specific treatment for this. 03/30/2017 most of what we see on her CT scan is chronic and patchy consistent with postinflammatory fibrosis. She does have bullous emphysema as well. Little can be done for this formal fibrosis but it should not progress with time. 04/03/2017 this is primarily in the left upper lobe. Some of the right upper lobe as well. 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 04/04/2017 this is stable. Should not be progressive. Current Visit: Yes (2) COPD (chronic obstructive pulmonary disease) Status: Chronic Assessment and plan: Previous smoker. Chronically on inhalers. Recently started Anoro. She should stay on that. She is also on home oxygen 03/30/2017 she is wheezing and we are treating her with bronchodilators. I think at least some of the wheezing is due to heart failure will get better with more vigorous diuresis. 04/03/2017 she is getting bronchodilators. She does have some musical rhonchi but not wheezing like she was Sunday. 04/04/2017 she is still having some wheezing and rhonchi today. Current Visit: Yes (3) Bronchiectasis Status: Acute Assessment and plan: She was recently started on Zithromax 250 mg Sunday. Would stay on that. No signs of any active infection. 03/30/2017 needs to stay on Zithromax Sunday. 04/03/17 continuing Zithromax prophylaxis. 04/04/2017 no new plans Current Visit: Yes (4) Congestive heart failure Problem details: Systolic and diastolic[suspected to have some sleep apnea] Status: Acute Assessment and plan: Her BNP was close to 400. This may be due to her lung disease but would evaluate with echocardiogram. 03/30/2017 echo shows severe cardiomyopathy ejection fraction 25% and LVH. This is acute on chronic both systolic and diastolic congestive heart failure. Needs more diuresis, will give IV 04/03/2017 this is a little better. BNP is down a little. 04/04/17 this seems to be better. Current Visit: Yes Qualifiers: Congestive heart failure type: diastolic Congestive heart failure chronicity: acute on chronic Qualified Code(s): I50.33 - Acute on chronic diastolic (congestive) heart failure
[2017-04-04 07:47] LABS: Albumin 2.6 G/DL (3.4-5.0); Bilirubin,Total 1.3 MG/DL (0.2-1.0); Calcium 9.3 MG/DL (8.5-10.1); Osmolality,Calculated 284.7 MOS/KG (273-304); Total Protein 6.8 G/DL (6.4-8.3)
[2017-04-04] MEDS: CLOPIDOGREL 75 MG TABLET PO SCH (09:11)
[2017-04-04] MEDS: MELOXICAM 7.5 MG TABLET PO SCH (09:11)
[2017-04-04] MEDS: PANTOPRAZOLE 40 MG TABLET PO SCH (09:11)
[2017-04-04] MEDS: AZITHROMYCIN 250 MG TABLET PO SCH (09:11)
[2017-04-04] MEDS: POTASSIUM CHLORIDE 20 MEQ TABLET PO SCH ×2 (09:11→14:57)
[2017-04-04] MEDS: CAPTOPRIL 6.25 MG TABLET PO SCH (09:11)
[2017-04-04] MEDS: metOLazone 5 MG TABLET PO SCH (09:11)
[2017-04-04] MEDS: ATORVASTATIN 20 MG TABLET PO SCH (09:11)
[2017-04-04] MEDS: ANORO ELLIPTA INH SCH (09:12)
[2017-04-04] MEDS: POLYETHYLENE GLYCOL POWDER 17 GM PACK PO SCH (09:12)
[2017-04-04] MEDS: INSULIN LISPRO 100 UNIT/ML SUBCUT SCH ×2 (09:12→13:37)
[2017-04-04] MEDS: amLODIPine 5 MG TABLET PO SCH (09:12)
--- NOTE | 2017-04-04 10:03 | Discharge Summary ---
<Belkis Ruiz - Last Filed: 04/04/17 11:04> Hospital Course - Hospital Course Hospital Course: 86-year-old female with history of hypertension, diabetes, COPD, arthritis, CHF , pulmonary fibrosis, and CAD with stents admitted by the hospitalist service on 03/28/2017 with shortness of breath and slurred speech. Head CT, brain MRI, and carotid Doppler studies were all negative. Neurology was consulted and he felt her symptoms were most likely related to metabolic encephalopathy. He wanted to continue her Plavix and he added a baby aspirin daily. He recommended follow-up with him in [address] Garibay from pulmonary was consulted for his COPD and pulmonary fibrosis. Patient is to continue her bronchodilators for her wheezing and she may require home oxygen. She also will be on Zithromax for 1 week. She will need follow-up with him in 1 month. Cardiology also followed the patient and she was aggressively diuresed. Her Lasix has been changed to p.o. and her edema and chest x-ray have improved. She will follow-up with Dr. Gastelum from cardiology in 3 months. Patient has reached maximal hospital benefit. She is feeling much better and ready for discharge. Care coordination, chart review, and completed discharge paperwork took approximately 46 minutes. - Time spent with patient Time with patient DS: Greater than 30 minutes Diagnosis - Discharge Diagnosis (1) Acute exacerbation of chronic obstructive airways disease Status: Resolved (2) Insulin dependent diabetes mellitus Status: Chronic (3) Rheumatoid arthritis Status: Chronic (4) Fibrosis, pulmonary, interstitial, diffuse Status: Chronic (5) Debility Status: Chronic (6) Acute on chronic systolic (congestive) heart failure Status: Resolved Specialty Discharge - Follow Up or Referrals Follow up with: James Garibay MD [Physician] - 05/02/17 1:30 pm Steven Gastleum MD [Physician] - (Will call you in May for June appointment. ) Discharge Plan - Discharge Data Disposition: Disch To Home/Self Care Contact your physician if you experience:: Shortness of breath - Discharge Medications New Azithromycin Tab [Zithromax Tab] 250 mg PO MOWEFR tablet metOLazone [Zaroxolyn] 5 mg PO DAILY #30 tablet Skin Healing Oint (Aquaphor) [Aquaphor] 1 applic TOP PRN PRN applic PRN Reason: Dry Skin Polyethylene Glycol Powder [Miralax] 17 gm PO DAILY Continue Amlodipine Besylate 5 mg PO QAM Meloxicam 15 mg PO QAM Atorvastatin [Lipitor] 20 mg PO QAM Clopidogrel [Plavix] 75 mg PO QAM Potassium Chloride Cap/Tab [K Dur] 20 meq PO TID Acetaminophen Tab [Tylenol Tab] 325 mg PO Q4H PRN #0 tablet PRN Reason: fever, headache/body aches Insulin NPH Hum/Reg Insulin Hm [NovoLIN 70/30] 35 units SUBCUT AC SUPPER Insulin NPH Hum/Reg Insulin Hm [NovoLIN 70/30] 45 units SUBCUT AC BREAKFAST Umeclidinium Brm/Vilanterol Tr [Anoro Ellipta] 1 puff INH DAILY Furosemide Tab [Lasix Tab] 80 mg PO BID DIURETIC #60 tablet Pantoprazole Tab [Protonix Tab] 1 tablet PO DAILY - Follow Up or Referral Follow Up: James Garibay MD [Physician] - 05/02/17 1:30 pm Steven Gastelum MD [Physician] - (Will call you in May for June appointment. ) - Forms/Instructions Instructions: Using Oxygen at Home (DC), Chronic Obstructive Pulmonary Disease (DC) Exam - Constitutional Vitals: Period Temp Pulse Resp BP Sys/Maldonado Pulse Ox Last 24 Hr 96.0 F-98.2 F 87-105 16-20 99-154/56-76 87-99 Exam: 86-year-old female, no acute distress, alert and oriented Extraocular movements intact with no scleral icterus Chest with bilateral wheezing CV regular rate and rhythm Abdomen soft and nontender Extremities with no edema Discharge Results Labs on day of discharge: Labs from last 24 hours 04/04/17 04/04/17 04/03/17 07:33 06:35 20:26 Sodium 138 Potassium 4.0 Chloride 95 L Carbon Dioxide 39 H Anion Gap 8.0 BUN 31 H Creatinine 1.20 H GFR Calculation 59 BUN/Creatinine Ratio 25.00 H Glucose 145 H POC Glucose 160 H 237 H Calculated Osmolality 284.7 Calcium 9.3 Total Bilirubin 1.30 H AST 14 ALT 13 Alkaline Phosphatase 98 Total Protein 6.8 Albumin 2.6 L Globulin 4.2 H Albumin/Globulin Ratio 0.6 L 04/03/17 04/03/17 16:36 12:08 Sodium Potassium Chloride Carbon Dioxide Anion Gap BUN Creatinine GFR Calculation BUN/Creatinine Ratio Glucose POC Glucose 194 H 173 H Calculated Osmolality Calcium Total Bilirubin AST ALT Alkaline Phosphatase Total Protein Albumin Globulin Albumin/Globulin Ratio DS: Provider Date of admission: 03/28/17 07:54 Primary care physician: Clint Gallo MD Attending physician on admission: Joaquín Mcnamara MD Consults: 03/28/17 09:35 Consult to Case Mgmt/Social Srvs [CONS] Routine Reason for Case Mgmt/Social Srvs: Discharge Planning Consult to Occupational Therapy [CONS] Routine Reason for Occupational Therapy: Evaluate and Treat Consult Comment: Stroke Consult to Physical Therapy [CONS] Routine Reason for Physical Therapy: Evaluate and Treat Consult Comment: stroke Consult to Physician [CONS] Routine Comment: Consulting Provider: Riley Carranza Person Notified: Katelyn Date Notified: 03/28/17 Time Notified: 11:25 03/29/17 09:49 Consult to Physician [CONS] Routine Comment: copd Consulting Provider: James Garibay Person Notified: quang Date Notified: 03/29/17 Time Notified: 09:53 03/29/17 09:50 Consult to Physician [CONS] Routine Comment: sob, interstitial lung disease Consulting Provider: James Garibay 03/30/17 08:18 Consult to Physician [CONS] Routine Comment: elderly with newly diagnosed chf Consulting Provider: James Carter Consulting Provider Notified: Yes When should Consulting Provider be notified: Now Consult to Specialist Group: Cardiology When should Consulting Provider be notified: Now Person Notified: GUICHO Date Notified: 03/30/17 Time Notified: 08:44 03/31/17 14:11 Consult to Occupational Therapy [CONS] Routine Reason for Occupational Therapy: Evaluate and Treat Consult to Physical Therapy [CONS] Routine Reason for Physical Therapy: Evaluate and Treat Discharging clinician: JEFFRY Madison Expected date of discharge: 04/04/17 <Tatyana Schmidt - Last Filed: 04/04/17 14:23> Diagnosis - Discharge Diagnosis (1) Insulin dependent diabetes mellitus Status: Chronic (2) Rheumatoid arthritis Status: Chronic (3) Fibrosis, pulmonary, interstitial, diffuse Status: Chronic (4) Debility Status: Chronic (5) COPD (chronic obstructive pulmonary disease) Status: Chronic (6) Acute on chronic systolic (congestive) heart failure Status: Resolved Discharge Plan - Discharge Data Condition at Discharge: Stable Activity: resume usual activities as tolerated, wear oxygen at all times - Forms/Instructions Additional Discharge Instructions: continue good local care to the wound on your heel and see Dr Mikayla Lynn at the wound center if you decide you want to. Nurses, please teach her daughter what you are doing for the ulcer so she can replicate it at home.
[2017-04-04 12:41] VITALS: BP 105/62
[2017-04-04] MEDS: ENOXAPARIN 40 MG/0.4 ML SYRINGE SUBCUT SCH (14:57)
--- NOTE | 2017-04-04 19:51 | Cardiology Progress Note ---
Fidelina Montaño April RN, am scribing for, and in the presence of, Timothy Mathias MD 19:50. Assessment and Plan (1) Congestive heart failure Problem details: Systolic and diastolic[suspected to have some sleep apnea] Status: Acute Assessment and plan: Initial assessment and plan April 03, 2017: A recent echo, heart failure systolic, may be also diastolic Appears to not be on an MASON inhibitor or arb . Will start on Capoten 6.25 mg p.o. now and twice daily. Hold if systolic blood pressure less than 100, potassium greater than 5, or creatinine is greater than 2. Neurology is assessed she probably did not have a stroke Has evidence of a pneumonia, being treated Will watch creatinine and potassium on MASON inhibitor. Assessment and plan April 04, 2017: No chest pain Less shortness of breath Is continue to use the O2 Okay with me to move to swing bed or to home. Qualifiers: Congestive heart failure type: diastolic Congestive heart failure chronicity: acute on chronic Qualified Code(s): I50.33 - Acute on chronic diastolic (congestive) heart failure (2) COPD (chronic obstructive pulmonary disease) Status: Chronic (3) Debility Status: Chronic (4) History of coronary artery disease Status: Chronic (5) Hypertension Status: Chronic Qualifiers: Hypertension type: essential hypertension Qualified Code(s): I10 - Essential (primary) hypertension (6) Insulin dependent diabetes mellitus Status: Chronic Cardiology - PN: Subj Interval history: [employer] Machine Setter: Dr. Gastelum Summary: Ms. Alvares is a 86 year old female who was seen Dr. Gastelum in the past, her most recent office visit with him was December 2015. She has a history of CHF, CAD, hypertension, IDDM, dyslipidemia, arthritis, COPD, and hernia. She had heart cath on June 08, 2011 with 80% stenosis in the LAD and 80% stenosis in the dominant RCA. She was evaluated for possible bypass surgery but this was decided against due to her advanced age and multiple comorbidities. On June 14, 2011 she underwent stenting of mid RCA and proximal LAD. Echocardiogram done January 2017 with ejection fraction 50% she has also had vein stripping of her right lower extremity and bilateral cataract surgery. Family history includes father with heart disease in parents with hypertension. She says on the morning of March 28 she began to have slurred speech, became diaphoretic, was disoriented, and became more short of breath than usual even using her oxygen. She presented to the emergency department for further evaluation. MRI of the brain showed generalized cerebral atrophy, but found no acute infarct. Carotid ultrasound showed less than 50% stenosis in both internal carotid arteries. Chest x-ray showed mild to moderate CHF with small pleural effusions. EKG showed sinus tachycardia with heart rate of 105. Echocardiogram done this admission with ejection fraction 25-30% and mild concentric left ventricular hypertrophy. She has been on Lasix 80 mg IV twice daily. She denies having any chest pain, troponin level on admission were trivial and flat. BNP was 389. Creatinine was slightly elevated at 1.1. Cardiology has been asked to evaluate patient because of CHF. Chest x-ray done March 30 showed persistent mild to moderate CHF with small pleural effusions and minimally progressive possible infiltration the left upper lobe. April 03, 2017: Ms. Alvares is seen on 4 E. She denies any chest pain reports her breathing has improved. Oxygen is in use via nasal cannula. teletypesetter monitor currently shows sinus rhythm with heart rates in the 90s. Vital signs been stable throughout the night. She is on Lasix 80 mg IV twice daily. Potassium this morning is 3.4, this is been replaced intravenously per protocol. Creatinine has increased slightly to 1.2. BNP has improved to 289. April 04, 2017: Ms. Alvares denies any chest pain and reports her breathing continues to improve. Oxygen is in use via nasal cannula. She states she did get up and sit in a chair some yesterday. Her sats were in the upper 80s to lower 90s during the night, otherwise vital signs been stable. Temperature monitor currently shows sinus rhythm with heart rates in the 90s. Potassium was replaced yesterday, it is 4.0 today. Chest x-ray today showed no significant interval change. Discharge planning has been started to include home O2. Exam (Progress Note) - Constitutional Vitals: Period Temp Pulse Resp BP Sys/Maldonado Pulse Ox Last 24 Hr 96.0 F-98.2 F 88-105 16-20 99-154/56-76 87-99 Exam: General: Present: Appears Well, No Apparent Distress HEENT: Present: PERRL, Mucus Membranes Moist Neck: Present: Supple Neck, Midline Trachea, No Bruit Cardiac: Present: Regular Rhythm, No Murmur, Tachycardia Lungs: Present: Scattered Rhonchi, Oxygen (Via nasal cannula) Neuro: Absent: Resting Tremor, Essential Tremor Abdomen: Present: Soft, Active Bowel Sounds, Non-Tender. Absent: Distended Skin: Present: Other (Left lower extremity is bandaged, she says she has some breakdown around her ankle). Absent: Rash, Suspicious Lesions Musculoskeletal: Present: Decreased Range of Motion, Pain in Joint Extremities: Present: Normal Upper Extr. Pulses, Normal Lower Extr. Pulses ( Unable to assess left lower extremity due to dressing), Edema (Trace to bilateral lower extremities). Absent: Normal Gait Result/EKG - Labs CBC & BMP: 04/03/17 05:11 04/04/17 06:35 Lab Results: I have reviewed the past 24 hour labs Labs: Laboratory Results - last 24 hr 04/03/17 04/03/17 04/03/17 12:08 16:36 20:26 Sodium Potassium Chloride Carbon Dioxide Anion Gap BUN Creatinine GFR Calculation BUN/Creatinine Ratio Glucose POC Glucose 173 H 194 H 237 H Calculated Osmolality Calcium Total Bilirubin AST ALT Alkaline Phosphatase Total Protein Albumin Globulin Albumin/Globulin Ratio 04/04/17 04/04/17 06:35 07:33 Sodium 138 Potassium 4.0 Chloride 95 L Carbon Dioxide 39 H Anion Gap 8.0 BUN 31 H Creatinine 1.20 H GFR Calculation 59 BUN/Creatinine Ratio 25.00 H Glucose 145 H POC Glucose 160 H Calculated Osmolality 284.7 Calcium 9.3 Total Bilirubin 1.30 H AST 14 ALT 13 Alkaline Phosphatase 98 Total Protein 6.8 Albumin 2.6 L Globulin 4.2 H Albumin/Globulin Ratio 0.6 L - Diagnostic Findings Procedure: Chest x-ray: report reviewed by me - EKG EKG results: interpreted by me EKG shows: sinus rhythm Quality Measures - Stroke Onset of Symptoms Date: 03/28/17 Onset of Symptoms Time: 04:00 Symptom Onset Unknown: No Specialty Discharge - Follow Up or Referrals Follow up with: James Garibay MD [Physician] - 05/02/17 1:30 pm Steven Gastelum MD [Physician] - (Will call you in May for June appointment. ) I, Timothy Mathias MD, personally performed the services described in this documentation, ascribed by Frances Kitchen RN in my presence, and it is both accurate and complete 950 .
== END 2017-04-04 15:58 | disposition home or self-care (01) | DRG 70 ==
LOC: EDBD → EDUNIT# → N.ED 04:48 → SUATTDRO 07:54 → N.EDINP 07:54 → N.TELES 09:45 → N.4E 03-29 18:45
PROVIDERS: ADMIT Internal Medicine; ATTEND Internal Medicine

== ENCOUNTER 2017-04-30 22:31 | Inpatient (IN) ==
[2017-05-01] MEDS ORDERED: ONDANSETRON 4 MG/2 ML VIAL IV STA (00:27)
[2017-05-01] MEDS ORDERED: PANTOPRAZOLE 40 MG VIAL IV STA (00:27)
[2017-05-01] MEDS ORDERED: ALUM/MAG/SIMETH/LIDO VISC 1:1 30 ML BOTTLE PO STA (00:27)
[2017-05-01] MEDS ORDERED: SODIUM CHLORIDE 0.9% 500 ML IV STA (00:27)
--- NOTE | 2017-05-01 00:43 | Emergency Department Note ---
IYanet Emily, am scribing for, and in the presence of, Jeffry Langford MD 00: 42. IPrimitivo Charles R, MD, personally performed the services described in this documentation, ascribed by Yolanda Holt in my presence, and it is both accurate and complete . Arrival - Arrival Chief Complaint: Non-Specific Stated Complaint: not feeling well ED Nursing Triage Note: TO ER PER WHEELCHAIR. FAMILY STATES BROUGHT PATIENT TONIGHT TO BE SEEN BECAUSE THEY THINK SHE IS DEHYDRATED BECAUSE SHE HARDLY DRINKS ANY FLUIDS. ALSO STATES PATIENT HAS BEEN EATING LIKE A BIRD FOR THE PAST SEVERAL WEEKS AND SHE MUST HAVE A BLOCKAGE IN HER STOMACH THAT IS CAUSING THAT. PATIENT WEARS OXYGEN AT HOME BUT DID NOT HAVE PORTABLE OXYGEN TO PUT ON PATIENT EN ROUTE TO HOSPITAL- RA SATS 89%. PLACED PATIENT ON PORTABLE OXYGEN IN TRIAGE AT 2LPM NC USES AT HOME. 94% SAT WITH OXYGEN AT 2LPM NC. Mode of Arrival: Wheelchair Limitations: No Limitations Source: Patient, Family (daughter) Time Seen by Provider: 05/01/17 00:10 - History of Present Illness HPI Narrative: Pt is a 86 y/o female who came to ED with c/o generalized weakness due to decreased PO intake that has been ongoing for over a week now. Daughter reports pt has a cycle of being thirsty then hungry and tries to eat food or drink, but pt vomits it and cycle starts again. Daughter states this has been ongoing for over a week. Daughter states pt "eats like a bird," for example her lunch she started eating at 12pm yesterday, is not even half way finished right now. Daughter noticed pt becoming weaker due to this and brought her in for concerned. Pt has appointment to see Dr. Garibay this Sunday and she is wheelchair bound. Pt and daughter denies confusion. PMHx of IDDM, CAD with stents, CHF, HLD. Pt is a former smoker. Onset (ago): week(s) Consistency: constant Severity: mild Severity scale (1-10): 3 Quality: fullness Allergies/Adverse Reactions: Allergies Allergy/AdvReac Type Severity Reaction Status Date / Time albuterol Allergy SHORTNESS Verified 04/30/17 22:45 OF BREATH Penicillins Allergy RASH Verified 04/30/17 22:45 Sulfa (Sulfonamide Allergy RASH Verified 04/30/17 22:45 Antibiotics) Home Medications: Home Medications Medication Instructions Recorded Confirmed Type Amlodipine Besylate 5 mg PO QAM 08/14/15 03/28/17 History Atorvastatin [Lipitor] 20 mg PO QAM 08/14/15 03/28/17 History Clopidogrel [Plavix] 75 mg PO QAM 08/14/15 03/28/17 History Meloxicam 15 mg PO QAM 08/14/15 03/28/17 History Potassium Chloride Cap/Tab [K Dur] 20 meq PO TID 08/14/15 03/28/17 History Acetaminophen Tab [Tylenol Tab] 325 mg PO Q4H PRN #0 tablet 07/06/16 03/28/17 Rx Furosemide Tab [Lasix Tab] 80 mg PO BID DIURETIC #60 tablet 07/06/16 03/28/17 Rx Insulin NPH Hum/Reg Insulin Hm 35 units SUBCUT AC SUPPER 02/11/17 03/28/17 History [NovoLIN 70/30] Insulin NPH Hum/Reg Insulin Hm 45 units SUBCUT AC BREAKFAST 02/11/17 03/28/17 History [NovoLIN 70/30] Pantoprazole Tab [Protonix Tab] 1 tablet PO DAILY 02/12/17 03/28/17 History Umeclidinium Brm/Vilanterol Tr 1 puff INH DAILY 03/28/17 03/28/17 History [Anoro Ellipta] Azithromycin Tab [Zithromax Tab] 250 mg PO MOWEFR tablet 04/04/17 Rx Polyethylene Glycol Powder 17 gm PO DAILY 04/04/17 Rx [Miralax] Skin Healing Oint (Aquaphor) 1 applic TOP PRN PRN applic 04/04/17 Rx [Aquaphor] metOLazone [Zaroxolyn] 5 mg PO DAILY #30 tablet 04/04/17 Rx Review of System - Review of System 12 point system: reviewed and no additional remarkable complaints except as stated - Review of System Constitutional: Present: weakness, other (decreased PO intake). Absent: chills , fever Respiratory: Absent: respiratory distress Cardiovascular: Absent: chest pain Gastrointestinal: Absent: abdominal pain, nausea Genitourinary female: Absent: dysuria Musculoskeletal: Absent: arm pain, neck pain Skin: Absent: rash Neurological: Absent: headache Medical,Surgical,& Family Hx - Medical History Cardio: History of: CHF, CAD, Hypertension, Cardiovascular Problems ( Cardiomegley) HEENT: History of: Ear Problem (hard of hearing) Endocrine: History of: Diabetes Mellitus (IDDM), Dyslipidemia Rheumatology: History of;: Rheumatoid Arthritis Respiratory: History of: COPD (oxygen dependent) Gastrointestinal: History of: GI Problems (hernia) - Surgical History Cardiac Surgeries: Sugical HX of: Cardiac Catheterization (stents) Thoracic Surgeries: Patient denies;: Organ Transplant HEENT Surgeries: Surgical HX of: Eye Surgery (Collateral cataract) - Family History Family History: Reports;: Family Heart Disease (Father), Family Hypertension ( Father, mother) - Social History Smoking Status: Former smoker Frequency of Alcohol Use: None Type of Drug Use: None Marital Status: Single Lives With:: Children Functional capacity: wheelchair bound Exam Vital Signs: Vital Signs Temperature 97.5 F L 04/30/17 22:36 Pulse Rate 101 H 05/01/17 00:10 Respiratory Rate 21 05/01/17 00:10 Blood Pressure 120/105 04/30/17 22:36 O2 Sat by Pulse Oximetry 93 L 05/01/17 00:10 - General General appearance: alert, in no apparent distress - Head Head exam: Present: atraumatic, normocephalic - Eye Eye exam: Present: PERRL, EOMI - ENT ENT exam: Present: mucous membranes moist. Absent: normal oropharynx (the start of oral thrush), mucous membranes dry - Neck Neck exam: Present: full ROM - Chest Chest inspection: Present: symmetric chest wall rise - Respiratory Respiratory exam: Present: normal lung sounds bilaterally. Absent: respiratory distress - Cardiovascular Cardiovascular exam: Present: regular rate, normal rhythm, normal heart sounds - Abdominal Exam Abdominal exam: Present: soft, tenderness (mildly tender to left side), normal bowel sounds. Absent: distention, guarding, rebound - Extremities Exam Extremities exam: Present: other (old non healing wounds on LLE wrapped in MASON bandaged by pt). Absent: pedal edema - Neurological Exam Neurological exam: Present: alert, oriented X3, CN II-XII intact - Psychiatric Psychiatric exam: Present: normal affect, normal mood - Skin Skin exam: Present: warm, dry Course - Consultations Consultation #1: Hospitalist will admit patient Time: 03:14 Results - Labs CBC & BMP: 05/01/17 00:22 05/01/17 00:22 Lab Results: I have reviewed the patients labs Labs: Laboratory Tests 05/01/17 05/01/17 00:22 00:22 WBC 10.2 RBC 6.13 H Hgb 15.0 Hct 45.9 MCV 74.9 L MCH 25 L MCHC 32.7 RDW 19.7 H Plt Count 249 MPV 12.1 H Neut % (Auto) 59.8 Lymph % (Auto) 20.6 L Tama % (Auto) 11.1 Eos % (Auto) 7.2 Baso % (Auto) 1.0 H Neut # (Auto) 6.1 Lymph # (Auto) 2.1 Tama # (Auto) 1.1 H Sodium 139 Potassium 3.4 L Chloride 95 L Carbon Dioxide 36 H Anion Gap 11.4 BUN 83 H Creatinine 2.20 H GFR Calculation 29 BUN/Creatinine Ratio 37.00 H Glucose 121 H Lactic Acid 1.9 Calcium 9.8 Magnesium 2.2 Total Bilirubin 0.90 AST 25 ALT 16 Alkaline Phosphatase 101 Troponin I 0.044 Total Protein 8.2 Albumin 3.3 L Globulin 4.9 H Albumin/Globulin Ratio 0.6 L Amylase 198 H Lipase 230.0 Disposition Clinical Impression: Debility, Renal insufficiency, Failure to thrive, Anorexia, Hypokalemia, Generalized weakness, Dehydration Case discussed with: patient, patient's family Disposition: Still a Patient Condition: Stable Time of Disposition: 03:18
[2017-05-01] MEDS ORDERED: PANTOPRAZOLE 40 MG VIAL IV ONE (01:08)
[2017-05-01] MEDS ORDERED: ONDANSETRON 4 MG/2 ML VIAL ONE (01:08)
[2017-05-01] MEDS ORDERED: ALUM/MAG/SIMETH/LIDO VISC 1:1 30 ML BOTTLE PO ONE (01:09)
[2017-05-01 01:45] LABS: Basophils # 0.1 10*3/uL (0.0-0.2); Eosinophils # 0.7 10*3/uL (0.0-0.87); Eosinophils % 7.2 % (0.00-10.9); Hematocrit 45.9 VOL% (35.7-47.0); Immature Granulocytes % 0.3 %; Immature Granulocytes Absolute 0.03 #; Lymphocytes # 2.1 10*3/uL (1.4-4.0); Lymphocytes % 20.6 % (21.3-54.2); Mean Corpuscular HGB Conc 32.7 GM/DL (32-36); Mean Corpuscular Hemoglobin 25 PG (27-34); Mean Corpuscular Volume 74.9 FL (87-102); Mean Platelet Volume 12.1 FL (9.6-12.0); Monocytes # 1.1 10*3/uL (0.11-0.8); Monocytes % 11.1 % (1.7-12.7); Neutrophils # 6.1 10*3/uL (1.4-7.4); Neutrophils % 59.8 % (38.7-73.9); Platelet Count 249 T/CUMM (130-400); Red Blood Count 6.13 MC/CUMM (3.8-5.5); Red Cell Distribution Width 19.7 % (9.3-17.3); White Blood Count 10.2 T/CUMM (4-12)
[2017-05-01 02:14] LABS: Lactic Acid 1.9 MMOL/L (0.4-2.0)
[2017-05-01 02:15] LABS: Albumin 3.3 G/DL (3.4-5.0); Bilirubin,Total 0.9 MG/DL (0.2-1.0); Calcium 9.8 MG/DL (8.5-10.1); Magnesium 2.2 MG/DL (1.8-2.4); Osmolality,Calculated 302.5 MOS/KG (273-304); Potassium 3.4 MMOL/L (3.5-5.1); Total Protein 8.2 G/DL (6.4-8.3); Troponin I Only 0.044 NG/ML (0.00-0.045)
[2017-05-01 02:58] LABS: Apearance,Urine CLEAR (Clear); Bilirubin,Urine Negative (Negative); Blood, Urine Negative (Negative); Glucose,Urine (UA) Negative (Negative); Hyaline Casts,Urine 10 /LPF (0-3); Ketones,Urine Negative (Negative); Nitrite,Urine Negative (Negative); Protein,Urine Negative; RBC,Urine 2 /HPF (0-4); Squamous Epithelial Cell,Urine Occasional /HPF (0-10); Urine Color Yellow (Yellow); Urine Specific Gravity 1.008 (1.001-1.035); Urine Urobilinogen < 2.0 EU/DL (0.2-1.0); WBC,Urine 1 /HPF (0-6)
[2017-05-01] MEDS ORDERED: DOCUSATE SODIUM 100 MG CAPSULE PO PRN (04:16)
[2017-05-01] MEDS ORDERED: GLUCAGON 1 MG VIAL IM PRN (04:16)
[2017-05-01] MEDS ORDERED: ACETAMINOPHEN 325 MG TABLET PO PRN (04:16)
[2017-05-01] MEDS ORDERED: DEXTROSE 50% 25 GM/50 ML SYRINGE IV PRN (04:16)
[2017-05-01] MEDS ORDERED: ONDANSETRON 4 MG/2 ML VIAL IV PRN (04:16)
--- NOTE | 2017-05-01 04:40 | Hospitalist History & Physical ---
Assessment and Plan - Time spent with patient Time spent with patient: Greater than 30 minutes (1) Anorexia Status: Acute Assessment and plan: Admit to hospitalist services. Consult Dietary for diet recommendations. Start Megace 40 mg BID. NS 500 ml bolus given in ED. Continue gentle hydration with NS at 50 ml/hr. Strict I/Os; Daily weight. Blood cultures collected in ED; follow. CBC, BMP, and BNP in a.m. Current Visit: Yes (2) Dehydration Status: Acute Assessment and plan: As above. Current Visit: Yes (3) Generalized weakness Status: Acute Assessment and plan: As above. Current Visit: Yes (4) Renal insufficiency Status: Acute Assessment and plan: As above. Current Visit: Yes (5) Decubital ulcer Status: Acute Assessment and plan: Consult wound care for left ankle decubitus ulcer. Current Visit: Yes (6) Hypokalemia Status: Acute Assessment and plan: Takes potassium replacement at home. Home medications not updated for reconciliation at this time; Continue when updated. KDur 10 meq PO x 1 dose now. BMP in a.m. Consider additional replacement depending on results. Current Visit: Yes (7) Congestive heart failure Problem details: Systolic and diastolic[suspected to have some sleep apnea] Status: Chronic Assessment and plan: Home medications not available for reconciliation at this time. Continue home medications when updated. Gentle hydration. Strict I/Os and daily weight. BNP in a.m. Current Visit: No Qualifiers: Congestive heart failure type: diastolic Congestive heart failure chronicity: acute on chronic Qualified Code(s): I50.33 - Acute on chronic diastolic (congestive) heart failure (8) COPD (chronic obstructive pulmonary disease) Status: Chronic Assessment and plan: Home medications not available for reconciliation at this time. Continue home medications when updated. Allergy to albuterol listed. Current Visit: No (9) Hypertension Status: Chronic Assessment and plan: Home medications not available for reconciliation at this time. Continue home medications when updated. Monitor. Current Visit: No Qualifiers: Hypertension type: essential hypertension Qualified Code(s): I10 - Essential (primary) hypertension (10) Insulin dependent diabetes mellitus Status: Chronic Assessment and plan: Home medications not available for reconciliation at this time. Continue home medications when updated. Accuchecks and SSI ACHS. ADA diet. Current Visit: Yes (11) DVT prophylaxis Status: Acute Assessment and plan: Lovenox 30 mg SQ daily. Current Visit: Yes History of Present Illness Chief complaint: Decreased appetite/oral intake History of present illness: Ms. Alvares is a 86 year old female with past medical history of hypertension, congestive heart failure, insulin-dependent diabetes, COPD, rheumatoid arthritis , and cardiac catheterization who presented to the ED tonight with complaints of decreased appetite and decreased oral intake including liquids for the last month after being discharged from the hospital. She reports having some nausea at times and weakness but denies abdominal pain, vomiting, diarrhea, fever, and chills. She reports that she wants to eat, but when she sits down to start to eat she loses her appetite. She reports that anything that is not water tastes sweet to her. Significant labs in the ED included, RBC 6.13, potassium 3.4, chloride 95, BUN 83, creatinine 2.2, blood glucose 121, albumin 3.3, and amylase 198. Currently, she is lying in bed resting comfortably without further complaints. Hospitalist services were consulted, and the patient will be admitted for further evaluation and treatment. Home medications not available for reconciliation at this time. This patient is a full code. Home Medications Medication Instructions Recorded Confirmed Type Amlodipine Besylate 5 mg PO QAM 08/14/15 03/28/17 History Atorvastatin [Lipitor] 20 mg PO QAM 08/14/15 03/28/17 History Clopidogrel [Plavix] 75 mg PO QAM 08/14/15 03/28/17 History Meloxicam 15 mg PO QAM 08/14/15 03/28/17 History Potassium Chloride Cap/Tab [K Dur] 20 meq PO TID 08/14/15 03/28/17 History Acetaminophen Tab [Tylenol Tab] 325 mg PO Q4H PRN #0 tablet 07/06/16 03/28/17 Rx Furosemide Tab [Lasix Tab] 80 mg PO BID DIURETIC #60 tablet 07/06/16 03/28/17 Rx Insulin NPH Hum/Reg Insulin Hm 35 units SUBCUT AC SUPPER 02/11/17 03/28/17 History [NovoLIN 70/30] Insulin NPH Hum/Reg Insulin Hm 45 units SUBCUT AC BREAKFAST 02/11/17 03/28/17 History [NovoLIN 70/30] Pantoprazole Tab [Protonix Tab] 1 tablet PO DAILY 02/12/17 03/28/17 History Umeclidinium Brm/Vilanterol Tr 1 puff INH DAILY 03/28/17 03/28/17 History [Anoro Ellipta] Azithromycin Tab [Zithromax Tab] 250 mg PO MOWEFR tablet 04/04/17 Rx Polyethylene Glycol Powder 17 gm PO DAILY 04/04/17 Rx [Miralax] Skin Healing Oint (Aquaphor) 1 applic TOP PRN PRN applic 04/04/17 Rx [Aquaphor] metOLazone [Zaroxolyn] 5 mg PO DAILY #30 tablet 04/04/17 Rx Allergies Allergy/AdvReac Type Severity Reaction Status Date / Time albuterol Allergy SHORTNESS Verified 04/30/17 22:45 OF BREATH Penicillins Allergy RASH Verified 04/30/17 22:45 Sulfa (Sulfonamide Allergy RASH Verified 04/30/17 22:45 Antibiotics) Medical,Surgical,& Family Hx - Medical History Cardio: History of: CHF, CAD, Hypertension, Cardiovascular Problems ( Cardiomegley) HEENT: History of: Ear Problem (hard of hearing) Endocrine: History of: Diabetes Mellitus (IDDM), Dyslipidemia Rheumatology: History of;: Rheumatoid Arthritis Respiratory: History of: COPD (oxygen dependent) Gastrointestinal: History of: GI Problems (hernia) - Surgical History Cardiac Surgeries: Sugical HX of: Cardiac Catheterization (stents), Cardiac Surgery HEENT Surgeries: Surgical HX of: Eye Surgery (Collateral cataract) - Family History Family History: Reports;: Family Heart Disease (Father), Family Hypertension ( Father, mother) - Social History Smoking Status: Former smoker Have you smoked in the last 12 months: No Frequency of Alcohol Use: None Type of Drug Use: None Marital Status: Lives With:: Children (daughter lives with her since fall) Functional capacity: wheelchair bound 12 point system: reviewed and no additional remarkable complaints except as stated - Constitutional Constitutional: Present: anorexia, weakness. Absent: chills, fever(s), headache (s), malaise - EENT Eyes: Absent: blurry vision, diplopia, loss of vision Ears: Absent: decreased hearing, ear discharge, ear pain Nose, mouth and throat: Absent: dysphagia, headache(s), nasal congestion, sore throat - Cardiovascular Cardiovascular: Present: dyspnea on exertion. Absent: chest pain at rest, diaphoresis, dyspnea, edema, orthopnea, palpitations - Respiratory Respiratory: Present: dyspnea on exertion. Absent: cough, dyspnea, wheezing - Gastrointestinal Gastrointestinal: Present: constipation, nausea. Absent: abdominal pain, diarrhea, dysphagia, vomiting - Genitourinary Genitourinary: Absent: dysuria, flank pain, urinary frequency - Musculoskeletal Musculoskeletal: Absent: arthralgias, back pain, joint swelling, myalgias - Neurological Neurological: Absent: confusion, dizziness, headache(s), numbness, paresthesias , syncope - Psychiatric Psychiatric: Absent: anxiety, depression - Endocrine Endocrine: Absent: cold intolerance, polydipsia, polyphagia, polyuria - Hematologic/Lymphatic Hematologic/Lymphatic: Absent: easy bleeding, easy bruising Exam - Constitutional Vitals: Period Temp Pulse Resp BP Sys/Maldonado Pulse Ox Last 24 Hr 97.5 F-97.5 F 96-101 20-21 120-120/105-105 89-93 Exam: Constitutional System: Afebrile. Awake, alert, and oriented x 3. No distress. No tremulousness. Head: Normocephalic, atraumatic. Ears, Nose and Throat System: No pain or tenderness. No epistaxis or discharge Eyes System: Pupils equal, round, and reactive. Extraocular muscles intact. Neck: Supple, without adenopathy, No jugular venous distention. No thyromegaly, neck mass, or prior surgery apparent. Respiratory System: Chest clear to auscultation. Cardiovascular System: Heart with regular rate and rhythm. No murmur. GI System: Abdomen soft, nontender. Normo active bowel sounds present. Ventral hernia noted. Musculoskeletal System: Limbs with no pedal edema. Full distal pulses. Normal capillary refill. Decubitus ulcer on left medial ankle. Neurological System: No discernable sensory deficit. No aphasia Psychiatric System: Conversation is rational Results - Labs CBC & BMP: 05/01/17 00:22 05/01/17 00:22 Lab Results: I have reviewed the past 24 hour labs Labs: WBC 10.2 RBC 6.13 Hgb 15 HCT 45.9 MCV 74.9 Platelet 249 Sodium 139 Potassium 3.4 Chloride 95 BUN 83 Creatinine 2.2 Glucose 121 Lactic acid 1.9 Calcium 9.8 Magnesium 2.2 Total bilirubin 0.9 AST 25 ALT 16 Alkaline phosphatase 101 Troponin is 0.044 Albumin 3.3 Urine negative
[2017-05-01] MEDS ORDERED: POTASSIUM CHLORIDE 10 MEQ TABLET PO ONE (05:26)
--- NOTE | 2017-05-01 07:13 | XRay Report ---
XR chest 1V portable Indication: Abdominal pain Comparison: 04 April 2017 Findings: The heart and mediastinum are stable in size and configuration. The pulmonary vascularity is increased but similar to previous study. Left upper lung density is slightly improved. No other lung infiltrates, effusions, pneumothorax or other abnormality is demonstrated. Impression: Slight improvement in the left upper lung density. No other acute findings. PROCEDURE INTERPRETED AT [facility] DEPARTMENT OF RADIOLOGY Final Report Signed by: Dr. Swapnil Ruby
--- NOTE | 2017-05-01 07:39 | XRay Report ---
XR abdomen 2V Indication: Abdominal pain Comparison: 05 June 2011 Findings: No free fluid or free air seen. The bowel gas pattern appears within normal limits. No abnormal calcifications are present. No other abnormality is identified. Impression: No evidence of acute abdominal findings demonstrated PROCEDURE INTERPRETED AT [facility] DEPARTMENT OF RADIOLOGY Final Report Signed by: Dr. Swapnil Ruby
[2017-05-01] MEDS: MEGESTROL 40 MG TABLET PO SCH ×2 (08:25→20:38)
[2017-05-01] MEDS: INSULIN LISPRO 100 UNIT/ML SUBCUT SCH ×3 (08:25→17:37)
[2017-05-01] MEDS: PANTOPRAZOLE 40 MG TABLET PO SCH (08:25)
[2017-05-01] MEDS: ENOXAPARIN 30 MG/0.3 ML SYRINGE SUBCUT SCH (08:26)
[2017-05-01] MEDS ORDERED: MEGESTROL 40 MG TABLET PO SCH (09:00)
[2017-05-01] MEDS ORDERED: SKIN HEALING OINT (AQUAPHOR) 50 GM TUBE TOP PRN (13:38)
--- NOTE | 2017-05-01 17:27 | Order Completion Report ---
See report scanned to EMR
[2017-05-01] MEDS: SODIUM CHLORIDE 0.9% 1,000 ML IV SCH (20:42)
[2017-05-02] MEDS: INSULIN LISPRO 100 UNIT/ML SUBCUT SCH ×5 (01:03→20:54)
[2017-05-02] MEDS: SODIUM CHLORIDE 0.9% 1,000 ML IV SCH (01:12)
[2017-05-02 07:15] LABS: Basophils # 0.1 10*3/uL (0.0-0.2); Eosinophils # 0.9 10*3/uL (0.0-0.87); Hematocrit 40.1 VOL% (35.7-47.0); Hemoglobin 13.2 GM/DL (12.0-16.0); Immature Granulocytes % 0.3 %; Immature Granulocytes Absolute 0.02 #; Lymphocytes # 1.7 10*3/uL (1.4-4.0); Lymphocytes % 22.3 % (21.3-54.2); Mean Corpuscular HGB Conc 32.9 GM/DL (32-36); Mean Corpuscular Hemoglobin 25 PG (27-34); Mean Corpuscular Volume 74.8 FL (87-102); Mean Platelet Volume 12.5 FL (9.6-12.0); Monocytes # 0.7 10*3/uL (0.11-0.8); Monocytes % 8.7 % (1.7-12.7); Neutrophils # 4.4 10*3/uL (1.4-7.4); Neutrophils % 55.7 % (38.7-73.9); Platelet Count 207 T/CUMM (130-400); Red Blood Count 5.36 MC/CUMM (3.8-5.5); Red Cell Distribution Width 19.4 % (9.3-17.3); White Blood Count 7.8 T/CUMM (4-12)
[2017-05-02 07:46] LABS: Calcium 8.9 MG/DL (8.5-10.1); Osmolality,Calculated 305.1 MOS/KG (273-304); Potassium 2.6 MMOL/L (3.5-5.1)
[2017-05-02 08:03] LABS: Eosinophils 8 % (0-10); Giant Platelets Few; Hypochromasia 1+; Lymphocytes 23 % (20-55); Microcytosis Slight; Ovalocytes Slight; Platelet Estimate Adequate; Segmented Neutrophils 66 % (50-85); Target Cells Few; Total Cells Counted 100
[2017-05-02] MEDS: ATORVASTATIN 20 MG TABLET PO SCH (09:00)
[2017-05-02] MEDS: ENOXAPARIN 30 MG/0.3 ML SYRINGE SUBCUT SCH (09:00)
[2017-05-02] MEDS: CLOPIDOGREL 75 MG TABLET PO SCH (09:00)
[2017-05-02] MEDS: MEGESTROL 40 MG TABLET PO SCH ×2 (09:01→20:55)
[2017-05-02] MEDS: PANTOPRAZOLE 40 MG TABLET PO SCH (09:01)
[2017-05-02] MEDS: VILANTEROL INH SCH (09:02)
[2017-05-02] MEDS: UMECLIDINIUM INH SCH (09:02)
--- NOTE | 2017-05-02 10:44 | Physician Query Form ---
CLICK EDIT DOCUMENT TO SELECT QUERY ANSWER --> OK --> SIGN Yamini Stanley RN, CCDS Certified Clinical Coordinate Measuring Machine Programmer W) [phone] (f) [phone] [email or web address] PROVIDERS: Make your selection(s) from the choices in EACH section by typing an "x" and enter comments in the comment section. Please use your independent medical judgment in providing your response. This request does not imply that any particular answer is desired or expected. CLINICAL INDICATORS: (Providers should not edit this section) The medical record indicates that the patient was admitted with dehydration, "renal Insufficiency", creatinine of 2.20 on the 3rd that has decreased to 1.60 on the 4th, GFR 29 on the 3rd that has increased to 45 on the 4th and the patient was placed on NS. Clarify which of the following most accurately represents the patient's renal status: (x) Acute kidney injury (non-traumatic) ( ) Acute renal failure ( ) Acute renal failure with underlying Chronic Kidney Disease (CKD) - please provide stage below ( ) Acute renal failure with pathological renal lesion ( ) Acute renal failure with necrosis ( ) tubular ( ) medullary ( ) cortical ( ) CKD - please provide stage below ( ) End Stage Renal Disease ( ) Acute interstitial nephritis ( ) Hepatorenal syndrome ( ) Other, please specify: ( ) Clinically unable to determine Chronic Kidney Disease Stages Source: National Kidney Disease Foundation ( ) Stage I (eGFR > or = 90) ( ) Stage II (eGFR 60 - 89) ( ) Stage III (eGFR 30 - 59) ( ) Stage IV (eGFR 15 - 29) ( ) Stage V (eGFR < 15 or dialysis) COMMENTS: PLEASE ALSO DOCUMENT RESPONSE IN PROGRESS NOTES AND/OR DISCHARGE SUMMARY Use of terms such as suspected, likely, or probable (associated with a specific diagnosis that is being evaluated, monitored, or treated as if it exists) are acceptable and can be restated in the discharge summary if not ruled out. MTDD
--- NOTE | 2017-05-02 10:46 | Physician Query Form ---
CLICK EDIT DOCUMENT TO SELECT QUERY ANSWER --> OK --> SIGN Yamini Stanley RN, CCDS Certified Clinical [place] W) [phone] (f) [phone] [email or web address] PROVIDERS: Make your selection(s) from the choices in EACH section by typing an "x" and enter comments in the comment section. Please use your independent medical judgment in providing your response. This request does not imply that any particular answer is desired or expected. CLINICAL INDICATORS: (Providers should not edit this section) The medical record indicates that the patient was admitted with dehydration, "COPD (oxygen dependent)", the patient was admitted and placed on 2 liters per NC. Based on the above, could you clarify the appropriate diagnosis, if significant , that supports the above abnormalities and additional evaluation, monitoring, and/or treatment rendered: ( ) Patient was not monitored or treated for chronic respiratory failure (x) Patient was monitored or treated for chronic respiratory failure ( ) Other, please specify: ( ) Clinically unable to determine COMMENTS: PLEASE ALSO DOCUMENT RESPONSE IN PROGRESS NOTES AND/OR DISCHARGE SUMMARY Use of terms such as suspected, likely, or probable (associated with a specific diagnosis that is being evaluated, monitored, or treated as if it exists) are acceptable and can be restated in the discharge summary if not ruled out. MTDD
[2017-05-02] MEDS ORDERED: DEXTROSE 50% 25 GM/50 ML VIAL IV PRN (11:00)
[2017-05-02] MEDS: POTASSIUM CHLORIDE 20 MEQ TABLET PO PRN ×4 (12:05→17:57)
[2017-05-02] MEDS ORDERED: AZITHROMYCIN 250 MG TABLET PO SCH (13:38)
--- NOTE | 2017-05-02 17:24 | Hospitalist Progress Note ---
Assessment and Plan (1) Decreased appetite Status: Acute Assessment and plan: Patient describes more of a change in the taste of food No abdominal pain or difficulty swallowing Will continue megace Current Visit: Yes (2) Insulin dependent diabetes mellitus Status: Chronic Current Visit: Yes (3) Hypertension Status: Chronic Current Visit: No Qualifiers: Hypertension type: essential hypertension Qualified Code(s): I10 - Essential (primary) hypertension (4) Rheumatoid arthritis Status: Chronic Current Visit: No (5) Debility Status: Chronic Current Visit: Yes (6) Renal insufficiency Status: Acute Assessment and plan: Improving with IV fluids Current Visit: Yes (7) Generalized weakness Status: Acute Assessment and plan: PT/OT Current Visit: Yes Hospitalist: Subjective Interval history: No acute events overnight. Patient seen eating dinner, tolerating well. Exam - Constitutional Vitals: Period Temp Pulse Resp BP Sys/Maldonado Pulse Ox Last 24 Hr 96.4 F-97.9 F 69-100 16-20 93-126/52-69 88-95 General appearance: over weight - Head Head exam: Present: normocephalic, atraumatic - Eye Eye exam: Present: EOMI Pupils: Present: DEDE - ENT ENT exam: Present: normal exam - Neck Neck exam: Present: normal inspection - Respiratory Respiratory exam: Present: clear to auscultation bilaterally. Absent: rhonchi, wheezes - Cardiovascular Cardiovascular exam: Present: regular rate and rhythm - GI/Abdominal GI/Abdominal exam: Present: normal bowel sounds, soft. Absent: tenderness, rebound - Extremities Exam Extremities exam: Present: normal inspection - Back Exam Back exam: Present: normal inspection - Neurological Exam Neurological exam: Present: alert, oriented X3 - Psychiatric Psychiatric exam: Present: normal affect, normal mood - Skin Skin exam: Present: warm, intact Results - Labs CBC & BMP: 05/02/17 05:03 05/02/17 05:03 Specialty Discharge - Follow Up or Referrals
[2017-05-02] MEDS ORDERED: oxyCODONE IR 5 MG TABLET PO PRN (17:29)
[2017-05-02] MEDS ORDERED: LACTULOSE 20 GM/30 ML UDCUP PO PRN (17:31)
[2017-05-02] MEDS ORDERED: POLYETHYLENE GLYCOL POWDER 17 GM PACK PO PRN (17:31)
[2017-05-03] MEDS: POTASSIUM CHLORIDE 20 MEQ TABLET PO PRN ×3 (00:15→04:11)
[2017-05-03] MEDS: SODIUM CHLORIDE 0.9% 1,000 ML IV SCH ×2 (02:07→16:46)
[2017-05-03 07:45] LABS: Calcium 8.4 MG/DL (8.5-10.1); Magnesium 2.1 MG/DL (1.8-2.4); Osmolality,Calculated 294.1 MOS/KG (273-304); Potassium 3.3 MMOL/L (3.5-5.1)
[2017-05-03] MEDS: ENOXAPARIN 30 MG/0.3 ML SYRINGE SUBCUT SCH (09:31)
[2017-05-03] MEDS: INSULIN LISPRO 100 UNIT/ML SUBCUT SCH ×3 (09:34→16:45)
[2017-05-03] MEDS: ATORVASTATIN 20 MG TABLET PO SCH (09:36)
[2017-05-03] MEDS: POTASSIUM CHLORIDE 20 MEQ TABLET PO SCH ×2 (09:37→14:49)
[2017-05-03] MEDS: MEGESTROL 40 MG TABLET PO SCH (09:37)
[2017-05-03] MEDS: CLOPIDOGREL 75 MG TABLET PO SCH (09:38)
[2017-05-03] MEDS: PANTOPRAZOLE 40 MG TABLET PO SCH (09:38)
[2017-05-03] MEDS: UMECLIDINIUM INH SCH (10:15)
[2017-05-03] MEDS: VILANTEROL INH SCH (10:15)
[2017-05-03] MEDS ORDERED: MELOXICAM 7.5 MG TABLET PO SCH (11:00)
[2017-05-03] MEDS ORDERED: SALIVA SUBSTITUTE SPRAY 60 ML CAN SWISH/SPIT PRN (13:46)
--- NOTE | 2017-05-03 13:53 | Discharge Summary ---
<Delmis Lombardo - Last Filed: 05/03/17 15:43> Hospital Course - Hospital Course Hospital Course: This is a 86-year-old female that presented to the ED at [facility] on the morning of May 01, 2017 for the evaluation of decreased appetite and decreased oral intake. Patient has a medical history significant for hypertension, congestive heart failure, insulin-dependent diabetes mellitus, chronic obstructive pulmonary disease, rheumatoid arthritis, gastroesophageal reflux disease, dyslipidemia, chronic constipation. Patient surgical history significant for cardiac catheterization and cataract removal. The family reported the onset of symptoms 4 weeks prior to presentation. They noted that the patient's slowly decreased since her subsequent discharge from the hospital. They report that the patient has experienced nausea at times and weakness however denies abdominal pain, vomiting, nausea, diarrhea, fever, and chills. The patient reports early satiety prior to meals. Her family became alarmed when the patient's oral intake continued to decline prompting them to transport her to the ED at [facility] for further evaluation. The patient was assessed at the time of ED presentation. Labs were obtained which were significant for potassium 3.4, chloride 95, carbon dioxide 36, BUN 83 , creatinine 2.20, glucose 121, albumin 3.3, amylase 198, and BNP 164. Urinalysis was significant for urine urobilinogen greater than 2.0, urine WBCs 1 , urine squamous epithelial cells occasional, hyaline casts 18. Abdominal x- ray was essentially unremarkable for any acute intra-abdominal processes. Chest x-ray was essentially unremarkable. Patient was subsequently admitted to the hospitalist service for continuation of care. Gentle rehydration, appetite stimulants, deep vein thrombosis prophylaxis were initiated. She denies any abdominal pain or difficulty swallowing. Her decreased appetite is due to a change in her taste buds. Her acute kidney injury resolved with IV fluids. The patient's condition slowly improved. The patient's condition is stable. She has not experienced any significant overnight events. Today, we feel that she is indeed appropriate for discharge to follow-up with her primary care physician as directed. Specialty Discharge - Follow Up or Referrals Discharge Plan - Discharge Medications New Megestrol Tab [Megace Tab] 40 mg PO BID #60 tablet Continue Meloxicam 15 mg PO QAM Atorvastatin [Lipitor] 20 mg PO QAM Clopidogrel [Plavix] 75 mg PO QAM Potassium Chloride Cap/Tab [K Dur] 20 meq PO TID Insulin NPH Hum/Reg Insulin Hm [NovoLIN 30] 35 units SUBCUT AC SUPPER Umeclidinium Brm/Vilanterol Tr [Anoro Ellipta] 1 puff INH DAILY Azithromycin Tab [Zithromax Tab] 250 mg PO MOWEFR tablet Skin Healing Oint (Aquaphor) [Aquaphor] 1 applic TOP PRN PRN applic PRN Reason: Dry Skin Pantoprazole Tab [Protonix Tab] 1 tablet PO DAILY Polyethylene Glycol Powder [Miralax] 17 gm PO DAILY Discontinued Amlodipine Besylate 5 mg PO QAM Acetaminophen Tab [Tylenol Tab] 325 mg PO Q4H PRN #0 tablet PRN Reason: fever, headache/body aches Insulin NPH Hum/Reg Insulin Hm [NovoLIN ] 45 units SUBCUT AC BREAKFAST metOLazone [Zaroxolyn] 5 mg PO DAILY #30 tablet Furosemide Tab [Lasix Tab] 80 mg PO BID DIURETIC #60 tablet - Follow Up or Referral - Forms/Instructions Forms: Work/School Release Exam - Constitutional Vitals: Period Temp Pulse Resp BP Sys/Maldonado Pulse Ox Last 24 Hr 97.0 F-98.4 F 74-98 16-22 99-136/50-66 91-95 Discharge Results Procedures and tests throughout hospitalization: Pending Orders 05/01/17 00:22 Blood Culture Stat Labs on day of discharge: Labs from last 24 hours 05/03/17 05/03/17 05/03/17 11:32 11:26 07:42 Sodium Potassium 3.3 L Chloride Carbon Dioxide Anion Gap BUN Creatinine GFR Calculation BUN/Creatinine Ratio Glucose POC Glucose 217 H 104 Calculated Osmolality Calcium Magnesium 05/03/17 05/02/17 05/02/17 06:25 23:35 20:53 Sodium 142 Potassium 3.3 L 3.1 L Chloride 103 Carbon Dioxide 33 H Anion Gap 9.3 BUN 45 H Creatinine 1.00 GFR Calculation 79 BUN/Creatinine Ratio 45.00 H Glucose 94 POC Glucose 167 H Calculated Osmolality 294.1 Calcium 8.4 L Magnesium 2.1 05/02/17 16:08 Sodium Potassium Chloride Carbon Dioxide Anion Gap BUN Creatinine GFR Calculation BUN/Creatinine Ratio Glucose POC Glucose 168 H Calculated Osmolality Calcium Magnesium Preliminary micro results at discharge 05/01/17 00:22 Blood Culture - Preliminary Blood No growth at 1 day 05/01/17 00:22 Blood Culture - Preliminary Blood No growth at 1 day DS: Provider Date of admission: 05/01/17 04:15 Primary care physician: Clint Gallo MD Attending physician on admission: Joel Brasher MD Consults: 05/01/17 04:22 Consult to [facility] [CONS] Routine Reason for Wound Care: Wound Care Management Consult Comment: left ankle wound 05/01/17 04:23 Consult to Dietitian [CONS] Routine Reason for Dietitian: Diet Recommendations Consult Comment: Decreased appetite; "everything tastes sweet" 05/01/17 07:22 Consult to Pastoral Services [CONS] Routine Comment: Pastoral Screen: Declines Visit Request Land Leveler Visit Alyssa Issues Pastoral Screen Source of Request: Patient 05/03/17 07:45 Consult to Occupational Therapy [CONS] Routine Reason for Occupational Therapy: Evaluate and Treat Consult to Physical Therapy [CONS] Routine Reason for Physical Therapy: Evaluate and Treat Discharging clinician: Delmis Lombardo CNP <Joaquín Mcnamara - Last Filed: 05/03/17 16:06> Hospital Course - Time spent with patient Time with patient DS: Less than 30 minutes Diagnosis - Discharge Diagnosis (1) Decreased appetite Status: Acute (2) Insulin dependent diabetes mellitus Status: Chronic (3) Hypertension Status: Chronic (4) Rheumatoid arthritis Status: Chronic (5) Debility Status: Chronic (6) Renal insufficiency Status: Acute (7) Generalized weakness Status: Acute Discharge Plan - Discharge Data Condition at Discharge: Stable Discharge Diet: advance to your usual diet Activity: increase activity as tolerated Hygiene: no restrictions Weight Bearing at Discharge: weight bear as tolerated Contact your physician if you experience:: fever over 101, Nausea/Vomiting
[2017-05-03 17:55] VITALS: BP 110/58
== END 2017-05-03 18:46 | disposition home or self-care (01) | DRG 682 ==
LOC: N.ED 22:31 → N.EDINP 05-01 04:15 → SUATTDRO 05-01 04:15 → N.3E 05-01 04:38 → N.4E 05-01 05:00
PROVIDERS: ADMIT Internal Medicine; ATTEND Internal Medicine

== ENCOUNTER 2017-05-16 16:20 | Inpatient (IN) ==
[2017-05-16 18:45] LABS: Basophils # 0.1 10*3/uL (0.0-0.2); Basophils % 0.9 % (0.0-0.8); Eosinophils # 0.5 10*3/uL (0.0-0.87); Eosinophils % 7.5 % (0.00-10.9); Hemoglobin 13.8 GM/DL (12.0-16.0); Immature Granulocytes % 0.3 %; Immature Granulocytes Absolute 0.02 #; Lymphocytes # 2.5 10*3/uL (1.4-4.0); Lymphocytes % 36.5 % (21.3-54.2); Mean Corpuscular HGB Conc 32.9 GM/DL (32-36); Mean Corpuscular Hemoglobin 24 PG (27-34); Mean Corpuscular Volume 73.9 FL (87-102); Mean Platelet Volume 11.9 FL (9.6-12.0); Monocytes # 0.6 10*3/uL (0.11-0.8); Monocytes % 8.1 % (1.7-12.7); Neutrophils # 3.3 10*3/uL (1.4-7.4); Neutrophils % 46.7 % (38.7-73.9); Platelet Count 326 T/CUMM (130-400); Red Blood Count 5.68 MC/CUMM (3.8-5.5); Red Cell Distribution Width 20.4 % (9.3-17.3)
[2017-05-16 18:55] LABS: Partial Thromboplastin Time 26.6 SECS (0-40)
[2017-05-16 19:14] LABS: Albumin 2.9 G/DL (3.4-5.0); Bilirubin,Total 0.7 MG/DL (0.2-1.0); Calcium 8.8 MG/DL (8.5-10.1); Osmolality,Calculated 286.3 MOS/KG (273-304); Total Protein 7.1 G/DL (6.4-8.3)
[2017-05-16 19:17] LABS: Troponin I Only 0.079 NG/ML (0.00-0.045)
[2017-05-16] MEDS ORDERED: POTASSIUM BICARB EFFERVESCENT 25 MEQ TABLET PO ONE ×2 (19:37→20:16)
[2017-05-16] MEDS ORDERED: GLUCAGON 1 MG VIAL IM PRN (22:30)
[2017-05-16] MEDS ORDERED: ONDANSETRON 4 MG/2 ML VIAL IV PRN (22:30)
[2017-05-16] MEDS ORDERED: DEXTROSE 50% 25 GM/50 ML VIAL IV PRN (22:30)
[2017-05-16] MEDS ORDERED: AZITHROMYCIN 250 MG TABLET ONE (22:58)
[2017-05-16] MEDS: AZITHROMYCIN 250 MG TABLET PO SCH (23:01)
[2017-05-17] MEDS ORDERED: ALBUTEROL/IPRATROPIUM 3 ML NEB RESP TX SCH (01:00)
[2017-05-17] MEDS ORDERED: POTASSIUM CHLORIDE 20 MEQ TABLET PO ONE (01:14)
[2017-05-17 02:25] LABS: Magnesium 1.3 MG/DL (1.8-2.4); Osmolality,Calculated 288.1 MOS/KG (273-304); Potassium 3.1 MMOL/L (3.5-5.1)
[2017-05-17 02:38] LABS: Basophils # 0.1 10*3/uL (0.0-0.2); Basophils % 1.1 % (0.0-0.8); Eosinophils # 0.6 10*3/uL (0.0-0.87); Eosinophils % 8.6 % (0.00-10.9); Hematocrit 40.5 VOL% (35.7-47.0); Hemoglobin 13.2 GM/DL (12.0-16.0); Immature Granulocytes % 0.1 %; Immature Granulocytes Absolute 0.01 #; Lymphocytes # 2.5 10*3/uL (1.4-4.0); Lymphocytes % 34.5 % (21.3-54.2); Mean Corpuscular HGB Conc 32.6 GM/DL (32-36); Mean Corpuscular Hemoglobin 24 PG (27-34); Mean Corpuscular Volume 73.9 FL (87-102); Mean Platelet Volume 12.2 FL (9.6-12.0); Monocytes # 0.6 10*3/uL (0.11-0.8); Monocytes % 8.4 % (1.7-12.7); Neutrophils # 3.4 10*3/uL (1.4-7.4); Neutrophils % 47.3 % (38.7-73.9); Platelet Count 315 T/CUMM (130-400); Red Blood Count 5.48 MC/CUMM (3.8-5.5); Red Cell Distribution Width 20.1 % (9.3-17.3); White Blood Count 7.1 T/CUMM (4-12)
[2017-05-17] MEDS ORDERED: MELOXICAM 7.5 MG TABLET PO SCH (09:00)
[2017-05-17] MEDS ORDERED: ATORVASTATIN 20 MG TABLET PO SCH (09:00)
[2017-05-17] MEDS ORDERED: NON-FORMULARY MEDICATION (Umeclidinium Brm/Vilanterol Tr [Anoro Ellipta] 1 PUFF) INH SCH (09:00)
[2017-05-17] MEDS ORDERED: POTASSIUM CHLORIDE 20 MEQ TABLET PO SCH (09:00)
[2017-05-17] MEDS: INSULIN LISPRO 100 UNIT/ML SUBCUT SCH ×4 (09:02→21:21)
[2017-05-17] MEDS: INSULIN NPH/REGULAR 70/30 100 UNIT/ML SUBCUT SCH ×2 (09:02→16:17)
[2017-05-17] MEDS: LOSARTAN 50 MG TABLET PO SCH ×2 (09:02→09:08)
[2017-05-17] MEDS: CLOPIDOGREL 75 MG TABLET PO SCH (09:03)
[2017-05-17] MEDS: amLODIPine 5 MG TABLET PO SCH ×2 (09:03→09:05)
[2017-05-17] MEDS: FUROSEMIDE 40 MG/4 ML VIAL IV SCH ×2 (09:03→15:06)
[2017-05-17] MEDS: CARVEDILOL 6.25 MG TABLET PO SCH ×2 (09:03→21:15)
[2017-05-17] MEDS: ENOXAPARIN 40 MG/0.4 ML SYRINGE SUBCUT SCH (09:03)
[2017-05-17] MEDS: PANTOPRAZOLE 40 MG TABLET PO SCH (09:03)
[2017-05-17] MEDS: ASPIRIN EC 81 MG TABLET PO SCH (09:11)
[2017-05-17] MEDS: POTASSIUM CHLORIDE 20 MEQ TABLET PO SCH ×4 (11:17→22:13)
[2017-05-17] MEDS: SPIRONOLACTONE 25 MG TABLET PO SCH (21:17)
[2017-05-17] MEDS: ATORVASTATIN 80 MG TABLET PO SCH (21:17)
[2017-05-18 07:30] LABS: Basophils # 0.1 10*3/uL (0.0-0.2); Basophils % 0.9 % (0.0-0.8); Eosinophils # 0.5 10*3/uL (0.0-0.87); Eosinophils % 7.2 % (0.00-10.9); Hematocrit 39.5 VOL% (35.7-47.0); Hemoglobin 12.6 GM/DL (12.0-16.0); Immature Granulocytes % 0.4 %; Immature Granulocytes Absolute 0.03 #; Lymphocytes # 2.2 10*3/uL (1.4-4.0); Mean Corpuscular HGB Conc 31.9 GM/DL (32-36); Mean Corpuscular Hemoglobin 24 PG (27-34); Mean Corpuscular Volume 74.8 FL (87-102); Mean Platelet Volume 12.4 FL (9.6-12.0); Monocytes # 0.5 10*3/uL (0.11-0.8); Monocytes % 6.5 % (1.7-12.7); Neutrophils # 4.2 10*3/uL (1.4-7.4); Platelet Count 308 T/CUMM (130-400); Red Blood Count 5.28 MC/CUMM (3.8-5.5); Red Cell Distribution Width 20.2 % (9.3-17.3); White Blood Count 7.5 T/CUMM (4-12)
[2017-05-18 07:58] LABS: Magnesium 1.5 MG/DL (1.8-2.4); Potassium 4.5 MMOL/L (3.5-5.1)
[2017-05-18 08:02] LABS: Risk Ratio 3.43
[2017-05-18] MEDS: INSULIN LISPRO 100 UNIT/ML SUBCUT SCH ×4 (09:45→21:26)
[2017-05-18] MEDS: FUROSEMIDE 40 MG/4 ML VIAL IV SCH ×2 (09:45→17:38)
[2017-05-18] MEDS: INSULIN NPH/REGULAR 70/30 100 UNIT/ML SUBCUT SCH ×2 (09:46→16:12)
[2017-05-18] MEDS: SPIRONOLACTONE 25 MG TABLET PO SCH ×2 (09:47→21:21)
[2017-05-18] MEDS: ENOXAPARIN 40 MG/0.4 ML SYRINGE SUBCUT SCH (09:48)
[2017-05-18] MEDS: CLOPIDOGREL 75 MG TABLET PO SCH (09:48)
[2017-05-18] MEDS: CARVEDILOL 6.25 MG TABLET PO SCH ×2 (09:48→21:21)
[2017-05-18] MEDS: LOSARTAN 50 MG TABLET PO SCH (09:48)
[2017-05-18] MEDS: ASPIRIN EC 81 MG TABLET PO SCH (09:48)
[2017-05-18] MEDS: PANTOPRAZOLE 40 MG TABLET PO SCH (09:49)
[2017-05-18] MEDS: AZITHROMYCIN 250 MG TABLET PO SCH (09:49)
[2017-05-18] MEDS ORDERED: MAGNESIUM SULF RIDER 2 GM in PREMIX 1 EACH IV ONE (10:21)
[2017-05-18] MEDS ORDERED: MAGNESIUM SULF RIDER 4 GM in PREMIX 1 EACH IV PRN (12:05)
[2017-05-18] MEDS ORDERED: MAGNESIUM SULF RIDER 2 GM in PREMIX 1 EACH IV PRN (12:05)
[2017-05-18] MEDS ORDERED: LOSARTAN 25 MG TABLET PO SCH (12:31)
[2017-05-18] MEDS: ATORVASTATIN 80 MG TABLET PO SCH (21:21)
[2017-05-19] MEDS ORDERED: FUROSEMIDE 40 MG/4 ML VIAL IV ONE (01:01)
[2017-05-19 02:31] LABS: Basophils # 0.1 10*3/uL (0.0-0.2); Basophils % 0.9 % (0.0-0.8); Eosinophils # 0.7 10*3/uL (0.0-0.87); Eosinophils % 8.6 % (0.00-10.9); Hematocrit 35.7 VOL% (35.7-47.0); Hemoglobin 11.5 GM/DL (12.0-16.0); Immature Granulocytes % 0.3 %; Immature Granulocytes Absolute 0.02 #; Lymphocytes # 2.1 10*3/uL (1.4-4.0); Lymphocytes % 27.8 % (21.3-54.2); Mean Corpuscular HGB Conc 32.2 GM/DL (32-36); Mean Corpuscular Hemoglobin 24 PG (27-34); Mean Corpuscular Volume 74.7 FL (87-102); Mean Platelet Volume 11.9 FL (9.6-12.0); Monocytes # 0.5 10*3/uL (0.11-0.8); Neutrophils # 4.3 10*3/uL (1.4-7.4); Neutrophils % 55.4 % (38.7-73.9); Platelet Count 290 T/CUMM (130-400); Red Blood Count 4.78 MC/CUMM (3.8-5.5); Red Cell Distribution Width 19.8 % (9.3-17.3); White Blood Count 7.7 T/CUMM (4-12)
[2017-05-19 03:08] LABS: Calcium 8.1 MG/DL (8.5-10.1); Magnesium 1.9 MG/DL (1.8-2.4); Osmolality,Calculated 285.4 MOS/KG (273-304); Potassium 4.3 MMOL/L (3.5-5.1)
[2017-05-19] MEDS: INSULIN LISPRO 100 UNIT/ML SUBCUT SCH ×4 (08:12→20:24)
[2017-05-19] MEDS: ASPIRIN EC 81 MG TABLET PO SCH (09:37)
[2017-05-19] MEDS: CARVEDILOL 6.25 MG TABLET PO SCH ×2 (09:37→20:57)
[2017-05-19] MEDS: PANTOPRAZOLE 40 MG TABLET PO SCH (09:38)
[2017-05-19] MEDS: CLOPIDOGREL 75 MG TABLET PO SCH (09:38)
[2017-05-19] MEDS: SPIRONOLACTONE 25 MG TABLET PO SCH (09:39)
[2017-05-19] MEDS: INSULIN NPH/REGULAR 70/30 100 UNIT/ML SUBCUT SCH ×2 (09:41→16:33)
[2017-05-19] MEDS: ENOXAPARIN 40 MG/0.4 ML SYRINGE SUBCUT SCH (09:43)
[2017-05-19] MEDS: SODIUM CHLORIDE 0.65% NASAL SPRAY 45 ML BOTTLE BOTH NARES PRN ×2 (15:18→20:57)
[2017-05-19] MEDS: ATORVASTATIN 80 MG TABLET PO SCH (20:57)
[2017-05-20 05:24] LABS: Basophils # 0.1 10*3/uL (0.0-0.2); Basophils % 0.8 % (0.0-0.8); Eosinophils # 0.6 10*3/uL (0.0-0.87); Eosinophils % 8.4 % (0.00-10.9); Hemoglobin 11.6 GM/DL (12.0-16.0); Immature Granulocytes % 0.4 %; Immature Granulocytes Absolute 0.03 #; Lymphocytes # 1.8 10*3/uL (1.4-4.0); Lymphocytes % 24.8 % (21.3-54.2); Mean Corpuscular HGB Conc 32.2 GM/DL (32-36); Mean Corpuscular Hemoglobin 24 PG (27-34); Mean Corpuscular Volume 74.1 FL (87-102); Mean Platelet Volume 11.9 FL (9.6-12.0); Monocytes # 0.6 10*3/uL (0.11-0.8); Monocytes % 7.8 % (1.7-12.7); Neutrophils # 4.3 10*3/uL (1.4-7.4); Neutrophils % 57.8 % (38.7-73.9); Platelet Count 310 T/CUMM (130-400); Red Blood Count 4.86 MC/CUMM (3.8-5.5); Red Cell Distribution Width 19.6 % (9.3-17.3); White Blood Count 7.4 T/CUMM (4-12)
[2017-05-20 05:49] LABS: Calcium 8.5 MG/DL (8.5-10.1); Magnesium 1.8 MG/DL (1.8-2.4); Osmolality,Calculated 288.3 MOS/KG (273-304); Potassium 4.1 MMOL/L (3.5-5.1)
[2017-05-20] MEDS: INSULIN LISPRO 100 UNIT/ML SUBCUT SCH ×4 (07:52→21:10)
[2017-05-20] MEDS: INSULIN NPH/REGULAR 70/30 100 UNIT/ML SUBCUT SCH ×2 (07:53→16:13)
[2017-05-20] MEDS ORDERED: FUROSEMIDE 40 MG TABLET PO SCH (09:00)
[2017-05-20] MEDS ORDERED: SPIRONOLACTONE 25 MG TABLET PO SCH (09:00)
[2017-05-20] MEDS: ASPIRIN EC 81 MG TABLET PO SCH (09:27)
[2017-05-20] MEDS: PANTOPRAZOLE 40 MG TABLET PO SCH (09:27)
[2017-05-20] MEDS: CLOPIDOGREL 75 MG TABLET PO SCH (09:28)
[2017-05-20] MEDS: CARVEDILOL 6.25 MG TABLET PO SCH ×2 (09:30→21:10)
[2017-05-20] MEDS: SPIRONOLACTONE 25 MG TABLET PO SCH (09:30)
[2017-05-20] MEDS: SODIUM CHLORIDE 0.65% NASAL SPRAY 45 ML BOTTLE BOTH NARES PRN (09:33)
[2017-05-20] MEDS: ENOXAPARIN 40 MG/0.4 ML SYRINGE SUBCUT SCH (09:43)
[2017-05-20] MEDS: ATORVASTATIN 80 MG TABLET PO SCH (21:10)
[2017-05-21] MEDS ORDERED: FUROSEMIDE 40 MG/4 ML VIAL IV ONE (05:04)
[2017-05-21 06:16] LABS: Basophils # 0.1 10*3/uL (0.0-0.2); Eosinophils # 0.6 10*3/uL (0.0-0.87); Eosinophils % 8.2 % (0.00-10.9); Hemoglobin 11.9 GM/DL (12.0-16.0); Immature Granulocytes % 0.4 %; Immature Granulocytes Absolute 0.03 #; Lymphocytes # 1.8 10*3/uL (1.4-4.0); Lymphocytes % 25.8 % (21.3-54.2); Mean Corpuscular HGB Conc 32.2 GM/DL (32-36); Mean Corpuscular Hemoglobin 24 PG (27-34); Mean Corpuscular Volume 74.6 FL (87-102); Mean Platelet Volume 12.4 FL (9.6-12.0); Monocytes # 0.7 10*3/uL (0.11-0.8); Monocytes % 9.5 % (1.7-12.7); Neutrophils # 3.9 10*3/uL (1.4-7.4); Neutrophils % 55.1 % (38.7-73.9); Platelet Count 335 T/CUMM (130-400); Red Blood Count 4.96 MC/CUMM (3.8-5.5); Red Cell Distribution Width 19.7 % (9.3-17.3)
[2017-05-21 06:48] LABS: Calcium 8.7 MG/DL (8.5-10.1); Magnesium 1.8 MG/DL (1.8-2.4); Osmolality,Calculated 290.1 MOS/KG (273-304); Potassium 4.1 MMOL/L (3.5-5.1)
[2017-05-21] MEDS: INSULIN LISPRO 100 UNIT/ML SUBCUT SCH ×4 (08:58→21:06)
[2017-05-21] MEDS: FUROSEMIDE 40 MG TABLET PO SCH ×2 (09:00→16:47)
[2017-05-21] MEDS: INSULIN NPH/REGULAR 70/30 100 UNIT/ML SUBCUT SCH ×2 (09:00→16:47)
[2017-05-21] MEDS: SPIRONOLACTONE 25 MG TABLET PO SCH (09:01)
[2017-05-21] MEDS: CARVEDILOL 6.25 MG TABLET PO SCH ×2 (09:02→21:06)
[2017-05-21] MEDS: PANTOPRAZOLE 40 MG TABLET PO SCH (09:02)
[2017-05-21] MEDS: AZITHROMYCIN 250 MG TABLET PO SCH (09:02)
[2017-05-21] MEDS: ENOXAPARIN 40 MG/0.4 ML SYRINGE SUBCUT SCH (09:02)
[2017-05-21] MEDS: ASPIRIN EC 81 MG TABLET PO SCH (09:02)
[2017-05-21] MEDS: CLOPIDOGREL 75 MG TABLET PO SCH (09:05)
[2017-05-21] MEDS ORDERED: MAGNESIUM SULF RIDER 2 GM in PREMIX 1 EACH IV ONE (11:02)
[2017-05-21] MEDS ORDERED: CLINDAMYCIN INJ 600 MG in PREMIX 1 EACH IV SCH (11:30)
[2017-05-21] MEDS: methylPREDNISolone SOD SUC 40 MG/1 ML VIAL IV SCH ×2 (11:50→18:14)
[2017-05-21 11:53] LABS: ABG Base Excess 4.7 MMOL/L (-2.5-2.5); ABG HCO3 28.6 MMOL/L (20-26); ABG Oxygen Saturation 93.8 % (95-100); ABG PCO2 45.8 MM HG (35-48); ABG PH 7.423 (7.35-7.45); ABG PO2 72.7 MM HG (80-95); ABG TCO2 26.6 MMOL/L (23-27)
[2017-05-21] MEDS: LEVOFLOXACIN INJ 750 MG in PREMIX 1 EACH IV SCH (12:21)
[2017-05-21] MEDS: AZTREONAM 1,000 MG in SODIUM CHLORIDE 0.9% 50 ML IV SCH (18:14)
[2017-05-21] MEDS: FUROSEMIDE 40 MG/4 ML VIAL IV SCH (18:42)
[2017-05-21] MEDS: LEVALBUTEROL 0.63 MG/3 ML NEB RESP TX SCH (19:49)
[2017-05-21] MEDS: ATORVASTATIN 80 MG TABLET PO SCH (21:06)
[2017-05-22] MEDS: LEVALBUTEROL 0.63 MG/3 ML NEB RESP TX SCH ×7 (00:03→23:45)
[2017-05-22] MEDS: AZTREONAM 1,000 MG in SODIUM CHLORIDE 0.9% 50 ML IV SCH ×3 (02:09→17:06)
[2017-05-22] MEDS: methylPREDNISolone SOD SUC 40 MG/1 ML VIAL IV SCH ×3 (03:12→18:22)
[2017-05-22] MEDS: INSULIN LISPRO 100 UNIT/ML SUBCUT SCH ×4 (09:42→20:38)
[2017-05-22] MEDS: INSULIN NPH/REGULAR 70/30 100 UNIT/ML SUBCUT SCH ×2 (09:45→17:05)
[2017-05-22] MEDS: FUROSEMIDE 40 MG/4 ML VIAL IV SCH ×2 (09:45→15:03)
[2017-05-22] MEDS: ASPIRIN EC 81 MG TABLET PO SCH (09:46)
[2017-05-22] MEDS: CARVEDILOL 6.25 MG TABLET PO SCH ×2 (09:46→20:38)
[2017-05-22] MEDS: ENOXAPARIN 40 MG/0.4 ML SYRINGE SUBCUT SCH (09:46)
[2017-05-22] MEDS: SPIRONOLACTONE 25 MG TABLET PO SCH (09:46)
[2017-05-22] MEDS: PANTOPRAZOLE 40 MG TABLET PO SCH (09:47)
[2017-05-22] MEDS: CLOPIDOGREL 75 MG TABLET PO SCH (09:47)
[2017-05-22] MEDS: LEVOFLOXACIN INJ 750 MG in PREMIX 1 EACH IV SCH (12:09)
[2017-05-22] MEDS: ACETAMINOPHEN 325 MG TABLET PO PRN ×2 (15:03→18:25)
[2017-05-22] MEDS: ATORVASTATIN 80 MG TABLET PO SCH (20:35)
[2017-05-23] MEDS: AZTREONAM 1,000 MG in SODIUM CHLORIDE 0.9% 50 ML IV SCH ×3 (01:58→18:10)
[2017-05-23] MEDS: methylPREDNISolone SOD SUC 40 MG/1 ML VIAL IV SCH ×3 (02:33→23:14)
[2017-05-23 03:44] LABS: Basophils % 0.1 % (0.0-0.8); Hematocrit 36.7 VOL% (35.7-47.0); Hemoglobin 11.9 GM/DL (12.0-16.0); Immature Granulocytes % 0.7 %; Immature Granulocytes Absolute 0.11 #; Lymphocytes # 1.3 10*3/uL (1.4-4.0); Lymphocytes % 7.8 % (21.3-54.2); Mean Corpuscular HGB Conc 32.4 GM/DL (32-36); Mean Corpuscular Hemoglobin 24 PG (27-34); Mean Corpuscular Volume 74.3 FL (87-102); Mean Platelet Volume 11.4 FL (9.6-12.0); Monocytes # 0.7 10*3/uL (0.11-0.8); Neutrophils # 14.6 10*3/uL (1.4-7.4); Neutrophils % 87.4 % (38.7-73.9); Platelet Count 356 T/CUMM (130-400); Red Blood Count 4.94 MC/CUMM (3.8-5.5); Red Cell Distribution Width 19.4 % (9.3-17.3); White Blood Count 16.7 T/CUMM (4-12)
[2017-05-23] MEDS: LEVALBUTEROL 0.63 MG/3 ML NEB RESP TX SCH ×5 (03:53→19:27)
[2017-05-23 04:28] LABS: Magnesium 1.8 MG/DL (1.8-2.4); Osmolality,Calculated 288.4 MOS/KG (273-304); Potassium 3.9 MMOL/L (3.5-5.1)
[2017-05-23] MEDS: INSULIN LISPRO 100 UNIT/ML SUBCUT SCH ×4 (07:53→21:23)
[2017-05-23] MEDS: FUROSEMIDE 40 MG/4 ML VIAL IV SCH ×2 (09:51→18:06)
[2017-05-23] MEDS: CLOPIDOGREL 75 MG TABLET PO SCH (09:56)
[2017-05-23] MEDS: CARVEDILOL 6.25 MG TABLET PO SCH ×2 (09:56→21:22)
[2017-05-23] MEDS: SPIRONOLACTONE 25 MG TABLET PO SCH (09:57)
[2017-05-23] MEDS: PANTOPRAZOLE 40 MG TABLET PO SCH (09:58)
[2017-05-23] MEDS: ASPIRIN EC 81 MG TABLET PO SCH (09:58)
[2017-05-23] MEDS: INSULIN NPH/REGULAR 70/30 100 UNIT/ML SUBCUT SCH ×2 (09:59→18:11)
[2017-05-23] MEDS: ENOXAPARIN 40 MG/0.4 ML SYRINGE SUBCUT SCH (10:00)
[2017-05-23] MEDS: LEVOFLOXACIN INJ 750 MG in PREMIX 1 EACH IV SCH (11:27)
[2017-05-23] MEDS: ATORVASTATIN 80 MG TABLET PO SCH (21:22)
[2017-05-24] MEDS: LEVALBUTEROL 0.63 MG/3 ML NEB RESP TX SCH ×5 (00:02→14:20)
[2017-05-24] MEDS: AZTREONAM 1,000 MG in SODIUM CHLORIDE 0.9% 50 ML IV SCH ×2 (02:38→09:46)
[2017-05-24] MEDS: INSULIN NPH/REGULAR 70/30 100 UNIT/ML SUBCUT SCH (08:16)
[2017-05-24] MEDS: INSULIN LISPRO 100 UNIT/ML SUBCUT SCH ×2 (08:16→13:21)
[2017-05-24] MEDS: SPIRONOLACTONE 25 MG TABLET PO SCH (08:44)
[2017-05-24] MEDS: PANTOPRAZOLE 40 MG TABLET PO SCH (08:44)
[2017-05-24] MEDS: CARVEDILOL 6.25 MG TABLET PO SCH (08:45)
[2017-05-24] MEDS: ASPIRIN EC 81 MG TABLET PO SCH (08:45)
[2017-05-24] MEDS: ENOXAPARIN 40 MG/0.4 ML SYRINGE SUBCUT SCH (08:48)
[2017-05-24] MEDS: FUROSEMIDE 40 MG/4 ML VIAL IV SCH (08:49)
[2017-05-24] MEDS: CLOPIDOGREL 75 MG TABLET PO SCH (08:58)
[2017-05-24] MEDS ORDERED: methylPREDNISolone SOD SUC 40 MG/1 ML VIAL IV SCH (09:00)
[2017-05-24] MEDS: LEVOFLOXACIN INJ 750 MG in PREMIX 1 EACH IV SCH ×2 (10:36→12:09)
[2017-05-24 11:20] VITALS: BP 129/66
[2017-05-24] MEDS: ACETAMINOPHEN 325 MG TABLET PO PRN (13:56)
== END 2017-05-24 16:00 | disposition home health service (06) | DRG 291 ==
LOC: N.ED 16:20 → N.EDINP 22:15 → SUATTDRO 22:15 → N.4E 23:20
PROVIDERS: ADMIT Internal Medicine Cardiovascular Disease; ATTEND Internal Medicine

== ENCOUNTER 2017-07-25 18:08 | Inpatient (IN) ==
[2017-07-25] MEDS ORDERED: ONDANSETRON 4 MG/2 ML VIAL IV STA (18:31)
[2017-07-25] MEDS ORDERED: SODIUM CHLORIDE 0.9% 1,000 ML IV STA (18:31)
[2017-07-25] MEDS ORDERED: LEVOFLOXACIN INJ 750 MG in PREMIX 1 EACH IV STA (18:31)
[2017-07-25] MEDS ORDERED: LEVOFLOXACIN INJ 150 ML IV ONE (19:19)
[2017-07-25] MEDS ORDERED: ONDANSETRON 4 MG/2 ML VIAL ONE (19:19)
[2017-07-25 19:22] LABS: Basophils # 0.1 10*3/uL (0.0-0.2); Basophils % 0.8 % (0.0-0.8); Eosinophils # 0.6 10*3/uL (0.0-0.87); Eosinophils % 8.7 % (0.00-10.9); Hematocrit 33.6 VOL% (35.7-47.0); Hemoglobin 11.3 GM/DL (12.0-16.0); Immature Granulocytes % 0.1 %; Immature Granulocytes Absolute 0.01 #; Lymphocytes % 27.8 % (21.3-54.2); Mean Corpuscular HGB Conc 33.6 GM/DL (32-36); Mean Corpuscular Hemoglobin 26 PG (27-34); Monocytes # 0.4 10*3/uL (0.11-0.8); Monocytes % 5.7 % (1.7-12.7); Neutrophils # 4.1 10*3/uL (1.4-7.4); Neutrophils % 56.9 % (38.7-73.9); Red Blood Count 4.42 MC/CUMM (3.8-5.5); Red Cell Distribution Width 19.7 % (9.3-17.3); White Blood Count 7.2 T/CUMM (4-12)
[2017-07-25 19:28] LABS: Platelet Count 63 T/CUMM (130-400)
[2017-07-25 19:42] LABS: Alanine Aminotransferase 37 U/L (13-56); Albumin 3.4 G/DL (3.4-5.0); Alkaline Phosphatase 78 U/L (45-117); Amylase 257 U/L (25-115); Aspartate Amino Transferase 29 U/L (0-37); Blood Urea Nitrogen 90 MG/DL (7-18); Calcium 9.7 MG/DL (8.5-10.1); Glucose 84 MG/DL (74-106); Osmolality,Calculated 303.5 MOS/KG (273-304); Potassium 4.6 MMOL/L (3.5-5.1); Sodium 139 MMOL/L (136-145); Total Protein 8.1 G/DL (6.4-8.3); Troponin I Only < 0.015 NG/ML (0.00-0.045)
[2017-07-25 19:44] LABS: Lactic Acid 3.4 MMOL/L (0.4-2.0)
[2017-07-25] MEDS ORDERED: VANCOMYCIN INJ 1,000 MG in SODIUM CHLORIDE 0.9% 250 ML IV STA (20:32)
[2017-07-25] MEDS ORDERED: SODIUM CHLORIDE 0.9% 3,250 ML IV ONE (21:00)
[2017-07-25] MEDS ORDERED: SODIUM CHLORIDE 0.9% 500 ML IV ONE (21:16)
[2017-07-25] MEDS ORDERED: VANCOMYCIN 1,000 MG VIAL ONE (21:23)
[2017-07-25] MEDS ORDERED: CEFEPIME 2,000 MG in SYRINGE 1 EACH IV SCH (22:32)
[2017-07-25] MEDS ORDERED: MORPHINE 2 MG/1 ML SYRINGE IV PRN (22:32)
[2017-07-25] MEDS ORDERED: DEXTROSE 50% 25 GM/50 ML VIAL IV PRN (22:32)
[2017-07-25] MEDS ORDERED: GLUCAGON 1 MG VIAL IM PRN (22:32)
[2017-07-25] MEDS ORDERED: ACETAMINOPHEN 325 MG TABLET PO PRN (22:32)
[2017-07-25] MEDS ORDERED: LEVALBUTEROL 1.25 MG/3 ML NEB RESP TX PRN (22:32)
[2017-07-25] MEDS ORDERED: INFLUENZA VIRUS VACCINE 0.5 ML SYRINGE IM ONE (22:38)
[2017-07-25] MEDS: NOREPINEPHRINE 8 MG in SODIUM CHLORIDE 0.9% 242 ML IV SCH (22:48)
[2017-07-25] MEDS: SODIUM CHLORIDE 0.9% 1,000 ML IV SCH (23:13)
[2017-07-25 23:14] LABS: Apearance,Urine Slightly Hazy (Clear); Bacteria,Urine Occasional /HPF (Few); Bilirubin,Urine Negative (Negative); Blood, Urine Negative (Negative); Glucose,Urine (UA) Negative (Negative); Hyaline Casts,Urine 13 /LPF (0-3); Ketones,Urine Negative (Negative); Mucus,Urine Occasional /LPF (Occasional); Nitrite,Urine Negative (Negative); Protein,Urine Negative; RBC,Urine 1 /HPF (0-4); Squamous Epithelial Cell,Urine Occasional /HPF (0-10); Urine Color Straw (Yellow); Urine Specific Gravity 1.006 (1.001-1.035); Urine Urobilinogen < 2.0 EU/DL (0.2-1.0); WBC,Urine 1 /HPF (0-6)
[2017-07-25] MEDS: LEVALBUTEROL 1.25 MG/3 ML NEB RESP TX SCH (23:35)
[2017-07-26] MEDS: PANTOPRAZOLE 40 MG VIAL IV SCH ×2 (00:11→20:41)
[2017-07-26] MEDS: LEVALBUTEROL 1.25 MG/3 ML NEB RESP TX SCH ×6 (03:39→23:40)
[2017-07-26 05:08] LABS: Basophils % 0.5 % (0.0-0.8); Eosinophils # 0.7 10*3/uL (0.0-0.87); Eosinophils % 8.7 % (0.00-10.9); Hematocrit 28.3 VOL% (35.7-47.0); Hemoglobin 9.3 GM/DL (12.0-16.0); Immature Granulocytes % 0.1 %; Immature Granulocytes Absolute 0.01 #; Lymphocytes # 2.5 10*3/uL (1.4-4.0); Lymphocytes % 32.1 % (21.3-54.2); Mean Corpuscular HGB Conc 32.9 GM/DL (32-36); Mean Corpuscular Hemoglobin 25 PG (27-34); Mean Corpuscular Volume 76.5 FL (87-102); Monocytes # 0.7 10*3/uL (0.11-0.8); Monocytes % 8.6 % (1.7-12.7); Neutrophils # 3.9 10*3/uL (1.4-7.4); Platelet Count 55 T/CUMM (130-400); Red Cell Distribution Width 19.5 % (9.3-17.3); White Blood Count 7.8 T/CUMM (4-12)
[2017-07-26 05:48] LABS: Calcium 8.6 MG/DL (8.5-10.1); Ovalocytes Few; Target Cells Slight
[2017-07-26 05:49] LABS: Acanthocytes Few; Hypochromasia 1+; Microcytosis 1+; Osmolality,Calculated 309.8 MOS/KG (273-304); Platelet Estimate Decreased; Potassium 4.3 MMOL/L (3.5-5.1)
[2017-07-26] MEDS: INSULIN NPH/REGULAR 70/30 100 UNIT/ML SUBCUT SCH ×2 (08:16→17:19)
[2017-07-26] MEDS: INSULIN REGULAR 100 UNIT/ML SUBCUT SCH ×4 (08:16→20:39)
[2017-07-26] MEDS: ASPIRIN EC 81 MG TABLET PO SCH (08:27)
[2017-07-26] MEDS: CEFEPIME 2,000 MG in SYRINGE 1 EACH IV SCH ×2 (08:27→20:40)
[2017-07-26] MEDS: MAGNESIUM OXIDE 400 MG TABLET PO SCH (08:27)
[2017-07-26] MEDS: CLOPIDOGREL 75 MG TABLET PO SCH (08:27)
[2017-07-26] MEDS: DOCUSATE SODIUM 100 MG CAPSULE PO SCH ×2 (08:27→20:39)
[2017-07-26 10:05] LABS: % Iron Saturation 48.1 % (18-50)
[2017-07-26] MEDS: SODIUM CHLORIDE 0.9% 1,000 ML IV SCH ×2 (12:05→15:19)
[2017-07-26] MEDS: NOREPINEPHRINE 8 MG in SODIUM CHLORIDE 0.9% 242 ML IV SCH (15:05)
[2017-07-26] MEDS: GENTAMICIN 0.1% CREAM 15 GM TUBE TOP SCH (17:18)
[2017-07-26] MEDS: ATORVASTATIN 80 MG TABLET PO SCH (20:39)
[2017-07-26] MEDS: VANCOMYCIN INJ 1,500 MG in SODIUM CHLORIDE 0.9% 500 ML IV SCH (20:41)
[2017-07-26] MEDS: ONDANSETRON 4 MG/2 ML VIAL IV PRN (21:18)
[2017-07-27] MEDS: NOREPINEPHRINE 8 MG in SODIUM CHLORIDE 0.9% 242 ML IV SCH (00:26)
[2017-07-27] MEDS: SODIUM CHLORIDE 0.9% 1,000 ML IV SCH ×2 (00:29→13:49)
[2017-07-27 02:44] LABS: Magnesium 1.9 MG/DL (1.8-2.4); Osmolality,Calculated 304.7 MOS/KG (273-304); Potassium 4.5 MMOL/L (3.5-5.1)
[2017-07-27] MEDS: LEVALBUTEROL 1.25 MG/3 ML NEB RESP TX SCH ×6 (04:30→22:56)
[2017-07-27] MEDS: INSULIN REGULAR 100 UNIT/ML SUBCUT SCH ×4 (07:48→21:29)
[2017-07-27] MEDS: INSULIN NPH/REGULAR 70/30 100 UNIT/ML SUBCUT SCH ×2 (07:48→17:17)
[2017-07-27] MEDS: ASPIRIN EC 81 MG TABLET PO SCH (08:23)
[2017-07-27] MEDS: GENTAMICIN 0.1% CREAM 15 GM TUBE TOP SCH (08:23)
[2017-07-27] MEDS: DOCUSATE SODIUM 100 MG CAPSULE PO SCH ×2 (08:23→21:29)
[2017-07-27] MEDS: MAGNESIUM OXIDE 400 MG TABLET PO SCH (08:23)
[2017-07-27] MEDS: CLOPIDOGREL 75 MG TABLET PO SCH (08:23)
[2017-07-27] MEDS: CEFEPIME 2,000 MG in SYRINGE 1 EACH IV SCH ×2 (08:33→21:30)
[2017-07-27] MEDS: ONDANSETRON 4 MG/2 ML VIAL IV PRN ×2 (08:58→21:55)
[2017-07-27] MEDS: SKIN HEALING OINT (AQUAPHOR) 50 GM TUBE TOP PRN (20:30)
[2017-07-27] MEDS: PANTOPRAZOLE 40 MG VIAL IV SCH (21:28)
[2017-07-27] MEDS: ATORVASTATIN 80 MG TABLET PO SCH (21:29)
[2017-07-27] MEDS: VANCOMYCIN INJ 1,500 MG in SODIUM CHLORIDE 0.9% 500 ML IV SCH (21:40)
[2017-07-28] MEDS: LEVALBUTEROL 1.25 MG/3 ML NEB RESP TX SCH ×6 (02:41→23:53)
[2017-07-28] MEDS: SODIUM CHLORIDE 0.9% 1,000 ML IV SCH (03:28)
[2017-07-28 08:41] LABS: Basophils % 0.5 % (0.0-0.8); Eosinophils # 0.6 10*3/uL (0.0-0.87); Eosinophils % 9.5 % (0.00-10.9); Hematocrit 23.1 VOL% (35.7-47.0); Immature Granulocytes % 0.3 %; Immature Granulocytes Absolute 0.02 #; Lymphocytes # 1.8 10*3/uL (1.4-4.0); Lymphocytes % 28.2 % (21.3-54.2); Mean Corpuscular HGB Conc 31.6 GM/DL (32-36); Mean Corpuscular Hemoglobin 25 PG (27-34); Mean Corpuscular Volume 80.5 FL (87-102); Monocytes # 0.8 10*3/uL (0.11-0.8); Monocytes % 11.7 % (1.7-12.7); Neutrophils # 3.2 10*3/uL (1.4-7.4); Neutrophils % 49.8 % (38.7-73.9); Red Cell Distribution Width 19.9 % (9.3-17.3); White Blood Count 6.4 T/CUMM (4-12)
[2017-07-28 08:45] LABS: Hemoglobin 7.3 GM/DL (12.0-16.0); Platelet Count 49 T/CUMM (130-400); Red Blood Count 2.87 MC/CUMM (3.8-5.5)
[2017-07-28] MEDS: NOREPINEPHRINE 8 MG in SODIUM CHLORIDE 0.9% 242 ML IV SCH (08:53)
[2017-07-28] MEDS: INSULIN NPH/REGULAR 70/30 100 UNIT/ML SUBCUT SCH ×2 (08:53→16:11)
[2017-07-28] MEDS: INSULIN REGULAR 100 UNIT/ML SUBCUT SCH ×4 (08:53→21:52)
[2017-07-28] MEDS: CLOPIDOGREL 75 MG TABLET PO SCH (08:54)
[2017-07-28] MEDS: CEFEPIME 2,000 MG in SYRINGE 1 EACH IV SCH ×2 (08:54→22:00)
[2017-07-28] MEDS: DOCUSATE SODIUM 100 MG CAPSULE PO SCH ×2 (08:54→21:52)
[2017-07-28] MEDS: MAGNESIUM OXIDE 400 MG TABLET PO SCH (08:54)
[2017-07-28] MEDS: ASPIRIN EC 81 MG TABLET PO SCH (08:54)
[2017-07-28] MEDS: GENTAMICIN 0.1% CREAM 15 GM TUBE TOP SCH (08:55)
[2017-07-28 09:01] LABS: Calcium 7.8 MG/DL (8.5-10.1); Magnesium 1.6 MG/DL (1.8-2.4); Osmolality,Calculated 299.1 MOS/KG (273-304); Potassium 3.7 MMOL/L (3.5-5.1)
[2017-07-28] MEDS ORDERED: MAGNESIUM SULF RIDER 2 GM in PREMIX 1 EACH IV ONE (09:21)
[2017-07-28] MEDS ORDERED: FUROSEMIDE 40 MG/4 ML VIAL IV ONE (09:22)
[2017-07-28] MEDS ORDERED: SODIUM CHLORIDE 23.4% CONC INJ 38.5 MEQ in STERILE WATER INJ 1,000 ML IV SCH (09:30)
[2017-07-28 10:07] LABS: Elliptocytes 1+; Hypochromasia 1+; Microcytosis 1+; Target Cells Slight
[2017-07-28 10:08] LABS: Platelet Estimate Decreased
[2017-07-28] MEDS: SODIUM CHLORIDE 0.45% 1,000 ML IV SCH (11:00)
[2017-07-28] MEDS: ATORVASTATIN 80 MG TABLET PO SCH (21:52)
[2017-07-28] MEDS: PANTOPRAZOLE 40 MG VIAL IV SCH (21:52)
[2017-07-28] MEDS: VANCOMYCIN INJ 1,500 MG in SODIUM CHLORIDE 0.9% 500 ML IV SCH (22:25)
[2017-07-29] MEDS: LEVALBUTEROL 1.25 MG/3 ML NEB RESP TX SCH ×5 (04:58→19:38)
[2017-07-29] MEDS: SODIUM CHLORIDE 0.45% 1,000 ML IV SCH ×2 (05:30→21:18)
[2017-07-29] MEDS: INSULIN REGULAR 100 UNIT/ML SUBCUT SCH ×4 (07:58→21:17)
[2017-07-29 07:59] LABS: Calcium 8.4 MG/DL (8.5-10.1)
[2017-07-29] MEDS: INSULIN NPH/REGULAR 70/30 100 UNIT/ML SUBCUT SCH ×2 (07:59→16:33)
[2017-07-29 08:00] LABS: Magnesium 1.9 MG/DL (1.8-2.4); Osmolality,Calculated 290.6 MOS/KG (273-304); Potassium 3.5 MMOL/L (3.5-5.1)
[2017-07-29] MEDS ORDERED: VANCOMYCIN INJ 1,500 MG in SODIUM CHLORIDE 0.9% 500 ML IV SCH (09:30)
[2017-07-29] MEDS: LEVOFLOXACIN INJ 500 MG in PREMIX 1 EACH IV SCH (09:36)
[2017-07-29] MEDS: CLOPIDOGREL 75 MG TABLET PO SCH (09:36)
[2017-07-29] MEDS: GENTAMICIN 0.1% CREAM 15 GM TUBE TOP SCH (09:36)
[2017-07-29] MEDS: DOCUSATE SODIUM 100 MG CAPSULE PO SCH ×2 (09:36→21:12)
[2017-07-29] MEDS: MAGNESIUM OXIDE 400 MG TABLET PO SCH (09:36)
[2017-07-29] MEDS: ASPIRIN EC 81 MG TABLET PO SCH (09:36)
[2017-07-29 10:35] LABS: Basophils % 0.4 % (0.0-0.8); Eosinophils # 0.7 10*3/uL (0.0-0.87); Eosinophils % 10.4 % (0.00-10.9); Hematocrit 22.3 VOL% (35.7-47.0); Hemoglobin 7.2 GM/DL (12.0-16.0); Immature Granulocytes % 0.4 %; Immature Granulocytes Absolute 0.03 #; Lymphocytes # 1.9 10*3/uL (1.4-4.0); Lymphocytes % 26.3 % (21.3-54.2); Mean Corpuscular HGB Conc 32.3 GM/DL (32-36); Mean Corpuscular Hemoglobin 26 PG (27-34); Mean Corpuscular Volume 79.1 FL (87-102); Monocytes % 13.3 % (1.7-12.7); Neutrophils # 3.5 10*3/uL (1.4-7.4); Neutrophils % 49.2 % (38.7-73.9); Platelet Count 52 T/CUMM (130-400); Red Blood Count 2.82 MC/CUMM (3.8-5.5); Red Cell Distribution Width 19.8 % (9.3-17.3); White Blood Count 7.1 T/CUMM (4-12)
[2017-07-29] MEDS ORDERED: SODIUM CHLORIDE 0.9% 1,000 ML IV PRN (11:15)
[2017-07-29 11:32] LABS: Hypochromasia 1+; Microcytosis 1+
[2017-07-29 11:33] LABS: Ovalocytes Few; Platelet Estimate Decreased; Target Cells Slight
[2017-07-29] MEDS: ATORVASTATIN 80 MG TABLET PO SCH (21:12)
[2017-07-29] MEDS: PANTOPRAZOLE 40 MG VIAL IV SCH (21:12)
[2017-07-30] MEDS: LEVALBUTEROL 1.25 MG/3 ML NEB RESP TX SCH ×7 (01:12→23:59)
[2017-07-30 05:36] LABS: Basophils # 0.1 10*3/uL (0.0-0.2); Basophils % 0.7 % (0.0-0.8); Eosinophils % 10.2 % (0.00-10.9); Hematocrit 28.8 VOL% (35.7-47.0); Hemoglobin 9.3 GM/DL (12.0-16.0); Immature Granulocytes % 1.3 %; Immature Granulocytes Absolute 0.13 #; Lymphocytes # 2.1 10*3/uL (1.4-4.0); Mean Corpuscular HGB Conc 32.3 GM/DL (32-36); Mean Corpuscular Hemoglobin 26 PG (27-34); Mean Corpuscular Volume 81.1 FL (87-102); Monocytes # 1.1 10*3/uL (0.11-0.8); Monocytes % 10.6 % (1.7-12.7); Neutrophils # 5.6 10*3/uL (1.4-7.4); Neutrophils % 56.2 % (38.7-73.9); Red Blood Count 3.55 MC/CUMM (3.8-5.5); Red Cell Distribution Width 19.7 % (9.3-17.3); White Blood Count 9.9 T/CUMM (4-12)
[2017-07-30 05:40] LABS: Platelet Count 60 T/CUMM (130-400)
[2017-07-30 05:52] LABS: Albumin 2.3 G/DL (3.4-5.0); Bilirubin,Total 0.7 MG/DL (0.2-1.0); Calcium 8.2 MG/DL (8.5-10.1); Magnesium 1.7 MG/DL (1.8-2.4); Osmolality,Calculated 283.8 MOS/KG (273-304); Potassium 3.4 MMOL/L (3.5-5.1)
[2017-07-30 06:04] LABS: Elliptocytes 1+; Hypochromasia 1+; Target Cells Few
[2017-07-30 06:05] LABS: Platelet Estimate Decreased
[2017-07-30] MEDS: LEVOFLOXACIN INJ 500 MG in PREMIX 1 EACH IV SCH (09:24)
[2017-07-30] MEDS: CLOPIDOGREL 75 MG TABLET PO SCH (09:25)
[2017-07-30] MEDS: ASPIRIN EC 81 MG TABLET PO SCH (09:26)
[2017-07-30] MEDS: MAGNESIUM OXIDE 400 MG TABLET PO SCH (09:26)
[2017-07-30] MEDS: DOCUSATE SODIUM 100 MG CAPSULE PO SCH ×2 (09:26→21:42)
[2017-07-30] MEDS: INSULIN NPH/REGULAR 70/30 100 UNIT/ML SUBCUT SCH ×2 (09:28→17:01)
[2017-07-30] MEDS: INSULIN REGULAR 100 UNIT/ML SUBCUT SCH ×4 (09:28→23:51)
[2017-07-30] MEDS ORDERED: POTASSIUM PHOSPHATE 30 MMOL in SODIUM CHLORIDE 0.9% 250 ML IV ONE (10:44)
[2017-07-30] MEDS ORDERED: MAGNESIUM OXIDE 400 MG TABLET PO ONE (10:45)
[2017-07-30] MEDS: GENTAMICIN 0.1% CREAM 15 GM TUBE TOP SCH (14:24)
[2017-07-30] MEDS: SODIUM CHLORIDE 0.45% 1,000 ML IV SCH ×2 (18:27→21:43)
[2017-07-30] MEDS: ATORVASTATIN 80 MG TABLET PO SCH (21:42)
[2017-07-30] MEDS: PANTOPRAZOLE 40 MG VIAL IV SCH (21:43)
[2017-07-31] MEDS: LEVALBUTEROL 1.25 MG/3 ML NEB RESP TX SCH ×5 (04:13→18:50)
[2017-07-31 07:47] LABS: Basophils # 0.1 10*3/uL (0.0-0.2); Basophils % 0.8 % (0.0-0.8); Eosinophils # 0.9 10*3/uL (0.0-0.87); Eosinophils % 9.2 % (0.00-10.9); Hemoglobin 9.5 GM/DL (12.0-16.0); Lymphocytes # 2.4 10*3/uL (1.4-4.0); Lymphocytes % 24.1 % (21.3-54.2); Mean Corpuscular HGB Conc 32.8 GM/DL (32-36); Mean Corpuscular Hemoglobin 26 PG (27-34); Mean Corpuscular Volume 80.1 FL (87-102); Monocytes # 0.9 10*3/uL (0.11-0.8); Monocytes % 8.6 % (1.7-12.7); NRBC # 0.03 10*3/uL; Neutrophils # 5.6 10*3/uL (1.4-7.4); Neutrophils % 55.3 % (38.7-73.9); Platelet Count 92 T/CUMM (130-400); Red Blood Count 3.62 MC/CUMM (3.8-5.5); White Blood Count 10.1 T/CUMM (4-12)
[2017-07-31 08:13] LABS: Albumin 2.2 G/DL (3.4-5.0); Bilirubin,Total 0.6 MG/DL (0.2-1.0); Calcium 8.1 MG/DL (8.5-10.1); Magnesium 1.6 MG/DL (1.8-2.4); Osmolality,Calculated 282.8 MOS/KG (273-304); Potassium 3.4 MMOL/L (3.5-5.1); Total Protein 5.2 G/DL (6.4-8.3)
[2017-07-31 08:22] LABS: Burr Cells Slight; Hypochromasia 2+; Macrocytosis 1+; Target Cells Slight
[2017-07-31] MEDS: INSULIN REGULAR 100 UNIT/ML SUBCUT SCH ×4 (08:39→23:20)
[2017-07-31] MEDS: INSULIN NPH/REGULAR 70/30 100 UNIT/ML SUBCUT SCH ×2 (08:39→15:41)
[2017-07-31] MEDS: LEVOFLOXACIN INJ 500 MG in PREMIX 1 EACH IV SCH (08:40)
[2017-07-31] MEDS: CLOPIDOGREL 75 MG TABLET PO SCH (08:40)
[2017-07-31] MEDS: MAGNESIUM OXIDE 400 MG TABLET PO SCH (08:40)
[2017-07-31] MEDS: ASPIRIN EC 81 MG TABLET PO SCH (08:40)
[2017-07-31] MEDS: GENTAMICIN 0.1% CREAM 15 GM TUBE TOP SCH (08:41)
[2017-07-31] MEDS: DOCUSATE SODIUM 100 MG CAPSULE PO SCH ×2 (08:41→20:46)
[2017-07-31] MEDS ORDERED: SODIUM CHLORIDE 0.9% IV ONE ×2 (10:00→18:00)
[2017-07-31] MEDS ORDERED: POTASSIUM PHOSPHATE IV ONE (10:00)
[2017-07-31 10:16] LABS: % Iron Saturation 10.9 % (18-50); Ferritin 98.2 ng/ml (8-252)
[2017-07-31 10:34] LABS: Folate 7.4 NG/ML (5.4-24.0)
[2017-07-31] MEDS: SODIUM CHLORIDE 0.45% 1,000 ML IV SCH (11:36)
[2017-07-31] MEDS: cefTRIAXone 1,000 MG in SYRINGE 1 EACH IV SCH (11:36)
[2017-07-31] MEDS ORDERED: MAGNESIUM SULF IV ONE (18:00)
[2017-07-31] MEDS ORDERED: POTASSIUM CHLORIDE IV ONE (18:00)
[2017-07-31] MEDS ORDERED: LEVALBUTEROL 1.25 MG/3 ML NEB RESP TX STA (20:20)
[2017-07-31] MEDS: PANTOPRAZOLE 40 MG VIAL IV SCH (20:45)
[2017-07-31] MEDS: ATORVASTATIN 80 MG TABLET PO SCH (20:46)
[2017-08-01] MEDS: LEVALBUTEROL 1.25 MG/3 ML NEB RESP TX SCH ×7 (00:57→23:37)
[2017-08-01] MEDS ORDERED: FUROSEMIDE 40 MG/4 ML VIAL IV ONE (01:00)
[2017-08-01] MEDS: INSULIN REGULAR 100 UNIT/ML SUBCUT SCH ×4 (08:00→22:44)
[2017-08-01] MEDS: CLOPIDOGREL 75 MG TABLET PO SCH (10:57)
[2017-08-01] MEDS: POLYETHYLENE GLYCOL POWDER 17 GM PACK PO SCH (10:57)
[2017-08-01] MEDS: DOCUSATE SODIUM 100 MG CAPSULE PO SCH ×2 (10:57→22:54)
[2017-08-01] MEDS: ASPIRIN EC 81 MG TABLET PO SCH (10:58)
[2017-08-01] MEDS: MAGNESIUM OXIDE 400 MG TABLET PO SCH (10:58)
[2017-08-01] MEDS: INSULIN NPH/REGULAR 70/30 100 UNIT/ML SUBCUT SCH ×2 (10:58→17:36)
[2017-08-01] MEDS: GENTAMICIN 0.1% CREAM 15 GM TUBE TOP SCH (11:00)
[2017-08-01] MEDS: cefTRIAXone 1,000 MG in SYRINGE 1 EACH IV SCH (11:02)
[2017-08-01] MEDS: SKIN HEALING OINT (AQUAPHOR) 50 GM TUBE TOP PRN (11:08)
[2017-08-01] MEDS: ZINC OXIDE PASTE 113 GM TUBE TOP PRN (11:08)
[2017-08-01] MEDS: PANTOPRAZOLE 40 MG VIAL IV SCH (22:00)
[2017-08-01] MEDS: ATORVASTATIN 80 MG TABLET PO SCH (22:54)
[2017-08-01] MEDS: FUROSEMIDE 80 MG TABLET PO SCH (22:54)
[2017-08-01] MEDS: POTASSIUM CHLORIDE 20 MEQ TABLET PO SCH (22:54)
[2017-08-02] MEDS: LEVALBUTEROL 1.25 MG/3 ML NEB RESP TX SCH ×6 (02:38→23:32)
[2017-08-02 06:44] LABS: Calcium 8.7 MG/DL (8.5-10.1); Magnesium 1.9 MG/DL (1.8-2.4); Osmolality,Calculated 283.8 MOS/KG (273-304); Potassium 3.8 MMOL/L (3.5-5.1)
[2017-08-02] MEDS: INSULIN REGULAR 100 UNIT/ML SUBCUT SCH ×4 (07:30→21:18)
[2017-08-02] MEDS: INSULIN NPH/REGULAR 70/30 100 UNIT/ML SUBCUT SCH ×2 (08:40→16:30)
[2017-08-02] MEDS: POLYETHYLENE GLYCOL POWDER 17 GM PACK PO SCH (09:30)
[2017-08-02] MEDS: CLOPIDOGREL 75 MG TABLET PO SCH (09:31)
[2017-08-02] MEDS: SPIRONOLACTONE 25 MG TABLET PO SCH (09:31)
[2017-08-02] MEDS: MAGNESIUM OXIDE 400 MG TABLET PO SCH (09:31)
[2017-08-02] MEDS: ASPIRIN EC 81 MG TABLET PO SCH (09:32)
[2017-08-02] MEDS: LISINOPRIL 2.5 MG TABLET PO SCH (09:32)
[2017-08-02] MEDS: FUROSEMIDE 80 MG TABLET PO SCH ×2 (09:32→21:26)
[2017-08-02] MEDS: cefTRIAXone 1,000 MG in SYRINGE 1 EACH IV SCH (09:33)
[2017-08-02] MEDS: ZINC OXIDE PASTE 113 GM TUBE TOP PRN (09:33)
[2017-08-02] MEDS: GENTAMICIN 0.1% CREAM 15 GM TUBE TOP SCH (09:33)
[2017-08-02] MEDS: DOCUSATE SODIUM 100 MG CAPSULE PO SCH ×2 (09:33→21:26)
[2017-08-02] MEDS: POTASSIUM CHLORIDE 20 MEQ TABLET PO SCH ×3 (11:43→21:26)
[2017-08-02] MEDS: PANTOPRAZOLE 40 MG VIAL IV SCH (21:23)
[2017-08-02] MEDS: ATORVASTATIN 80 MG TABLET PO SCH (21:26)
[2017-08-03] MEDS: LEVALBUTEROL 1.25 MG/3 ML NEB RESP TX SCH ×5 (02:17→21:10)
[2017-08-03] MEDS: FUROSEMIDE 80 MG TABLET PO SCH ×2 (09:43→21:19)
[2017-08-03] MEDS: CLOPIDOGREL 75 MG TABLET PO SCH (09:43)
[2017-08-03] MEDS: LISINOPRIL 2.5 MG TABLET PO SCH (09:43)
[2017-08-03] MEDS: ASPIRIN EC 81 MG TABLET PO SCH (09:43)
[2017-08-03] MEDS: DOCUSATE SODIUM 100 MG CAPSULE PO SCH ×2 (09:43→21:18)
[2017-08-03] MEDS: SPIRONOLACTONE 25 MG TABLET PO SCH (09:43)
[2017-08-03] MEDS: MAGNESIUM OXIDE 400 MG TABLET PO SCH (09:44)
[2017-08-03] MEDS: INSULIN NPH/REGULAR 70/30 100 UNIT/ML SUBCUT SCH ×2 (09:44→17:13)
[2017-08-03] MEDS: cefTRIAXone 1,000 MG in SYRINGE 1 EACH IV SCH (09:44)
[2017-08-03] MEDS: POTASSIUM CHLORIDE 20 MEQ TABLET PO SCH ×3 (09:44→21:18)
[2017-08-03] MEDS: POLYETHYLENE GLYCOL POWDER 17 GM PACK PO SCH (09:45)
[2017-08-03] MEDS: INSULIN REGULAR 100 UNIT/ML SUBCUT SCH ×4 (09:45→21:20)
[2017-08-03] MEDS: GENTAMICIN 0.1% CREAM 15 GM TUBE TOP SCH (10:50)
[2017-08-03] MEDS: ATORVASTATIN 80 MG TABLET PO SCH (21:18)
[2017-08-03] MEDS: PANTOPRAZOLE 40 MG VIAL IV SCH (21:20)
[2017-08-04] MEDS: LEVALBUTEROL 1.25 MG/3 ML NEB RESP TX SCH ×7 (00:15→23:21)
[2017-08-04] MEDS ORDERED: FUROSEMIDE 40 MG/4 ML VIAL IV ONE (07:54)
[2017-08-04] MEDS: INSULIN REGULAR 100 UNIT/ML SUBCUT SCH ×4 (08:09→21:08)
[2017-08-04] MEDS: cefTRIAXone 1,000 MG in SYRINGE 1 EACH IV SCH (09:15)
[2017-08-04] MEDS: CLOPIDOGREL 75 MG TABLET PO SCH (09:16)
[2017-08-04] MEDS: INSULIN NPH/REGULAR 70/30 100 UNIT/ML SUBCUT SCH ×2 (09:16→16:57)
[2017-08-04] MEDS: MAGNESIUM OXIDE 400 MG TABLET PO SCH (09:16)
[2017-08-04] MEDS: FUROSEMIDE 80 MG TABLET PO SCH (09:16)
[2017-08-04] MEDS: LISINOPRIL 2.5 MG TABLET PO SCH ×2 (09:16→16:17)
[2017-08-04] MEDS: ASPIRIN EC 81 MG TABLET PO SCH (09:16)
[2017-08-04] MEDS: SPIRONOLACTONE 25 MG TABLET PO SCH (09:16)
[2017-08-04] MEDS: POTASSIUM CHLORIDE 20 MEQ TABLET PO SCH ×3 (09:16→21:24)
[2017-08-04] MEDS: DOCUSATE SODIUM 100 MG CAPSULE PO SCH ×2 (09:16→21:24)
[2017-08-04] MEDS: POLYETHYLENE GLYCOL POWDER 17 GM PACK PO SCH (09:17)
[2017-08-04] MEDS: GENTAMICIN 0.1% CREAM 15 GM TUBE TOP SCH (09:17)
[2017-08-04] MEDS: FUROSEMIDE 40 MG/4 ML VIAL IV SCH (17:25)
[2017-08-04] MEDS: metOLazone 5 MG TABLET PO SCH (17:25)
[2017-08-04] MEDS: PANTOPRAZOLE 40 MG VIAL IV SCH (21:24)
[2017-08-04] MEDS: ATORVASTATIN 80 MG TABLET PO SCH (21:24)
[2017-08-05 03:28] LABS: Calcium 9.2 MG/DL (8.5-10.1); Osmolality,Calculated 281.4 MOS/KG (273-304); Potassium 3.8 MMOL/L (3.5-5.1)
[2017-08-05] MEDS: LEVALBUTEROL 1.25 MG/3 ML NEB RESP TX SCH ×6 (03:28→23:49)
[2017-08-05] MEDS: INSULIN REGULAR 100 UNIT/ML SUBCUT SCH ×4 (08:31→22:01)
[2017-08-05] MEDS: FUROSEMIDE 40 MG/4 ML VIAL IV SCH ×2 (09:50→17:51)
[2017-08-05] MEDS: ASPIRIN EC 81 MG TABLET PO SCH (09:51)
[2017-08-05] MEDS: INSULIN NPH/REGULAR 70/30 100 UNIT/ML SUBCUT SCH ×2 (09:51→17:51)
[2017-08-05] MEDS: cefTRIAXone 1,000 MG in SYRINGE 1 EACH IV SCH (09:51)
[2017-08-05] MEDS: LISINOPRIL 2.5 MG TABLET PO SCH (09:51)
[2017-08-05] MEDS: DOCUSATE SODIUM 100 MG CAPSULE PO SCH ×2 (09:51→22:01)
[2017-08-05] MEDS: POTASSIUM CHLORIDE 20 MEQ TABLET PO SCH ×3 (09:52→22:00)
[2017-08-05] MEDS: GENTAMICIN 0.1% CREAM 15 GM TUBE TOP SCH (09:52)
[2017-08-05] MEDS: metOLazone 5 MG TABLET PO SCH (09:52)
[2017-08-05] MEDS: CLOPIDOGREL 75 MG TABLET PO SCH (09:52)
[2017-08-05] MEDS: SPIRONOLACTONE 25 MG TABLET PO SCH (09:52)
[2017-08-05] MEDS: MAGNESIUM OXIDE 400 MG TABLET PO SCH (09:52)
[2017-08-05] MEDS: POLYETHYLENE GLYCOL POWDER 17 GM PACK PO SCH (09:55)
[2017-08-05] MEDS: ATORVASTATIN 80 MG TABLET PO SCH (22:00)
[2017-08-05] MEDS: PANTOPRAZOLE 40 MG VIAL IV SCH (22:01)
[2017-08-06] MEDS: LEVALBUTEROL 1.25 MG/3 ML NEB RESP TX SCH ×5 (03:43→20:45)
[2017-08-06] MEDS: INSULIN REGULAR 100 UNIT/ML SUBCUT SCH ×4 (08:00→21:44)
[2017-08-06] MEDS: POLYETHYLENE GLYCOL POWDER 17 GM PACK PO SCH (09:00)
[2017-08-06] MEDS: INSULIN NPH/REGULAR 70/30 100 UNIT/ML SUBCUT SCH ×2 (09:55→16:21)
[2017-08-06] MEDS: FUROSEMIDE 40 MG/4 ML VIAL IV SCH ×2 (09:55→16:05)
[2017-08-06] MEDS: LISINOPRIL 2.5 MG TABLET PO SCH (09:58)
[2017-08-06] MEDS: metOLazone 5 MG TABLET PO SCH (09:58)
[2017-08-06] MEDS: MAGNESIUM OXIDE 400 MG TABLET PO SCH (09:58)
[2017-08-06] MEDS: POTASSIUM CHLORIDE 20 MEQ TABLET PO SCH ×3 (09:58→21:44)
[2017-08-06] MEDS: SPIRONOLACTONE 25 MG TABLET PO SCH (10:24)
[2017-08-06] MEDS: cefTRIAXone 1,000 MG in SYRINGE 1 EACH IV SCH (10:25)
[2017-08-06] MEDS: ZINC OXIDE PASTE 113 GM TUBE TOP PRN (10:29)
[2017-08-06] MEDS: GENTAMICIN 0.1% CREAM 15 GM TUBE TOP SCH (10:29)
[2017-08-06] MEDS: CLOPIDOGREL 75 MG TABLET PO SCH (10:33)
[2017-08-06] MEDS: ASPIRIN EC 81 MG TABLET PO SCH (10:34)
[2017-08-06] MEDS: DOCUSATE SODIUM 100 MG CAPSULE PO SCH ×2 (10:34→21:44)
[2017-08-06] MEDS: PANTOPRAZOLE 40 MG VIAL IV SCH (21:44)
[2017-08-06] MEDS: ATORVASTATIN 80 MG TABLET PO SCH (21:44)
[2017-08-07] MEDS: LEVALBUTEROL 1.25 MG/3 ML NEB RESP TX SCH ×7 (00:11→23:37)
[2017-08-07 05:31] LABS: Basophils # 0.1 10*3/uL (0.0-0.2); Basophils % 1.3 % (0.0-0.8); Eosinophils # 1.2 10*3/uL (0.0-0.87); Eosinophils % 10.5 % (0.00-10.9); Hematocrit 34.4 VOL% (35.7-47.0); Hemoglobin 11.4 GM/DL (12.0-16.0); Immature Granulocytes % 0.3 %; Immature Granulocytes Absolute 0.03 #; Lymphocytes # 2.6 10*3/uL (1.4-4.0); Lymphocytes % 23.3 % (21.3-54.2); Mean Corpuscular HGB Conc 33.1 GM/DL (32-36); Mean Corpuscular Hemoglobin 26 PG (27-34); Mean Corpuscular Volume 78.4 FL (87-102); Mean Platelet Volume 12.1 FL (9.6-12.0); Monocytes # 1.1 10*3/uL (0.11-0.8); Monocytes % 10.3 % (1.7-12.7); Neutrophils % 54.3 % (38.7-73.9); Platelet Count 428 T/CUMM (130-400); Red Blood Count 4.39 MC/CUMM (3.8-5.5); Red Cell Distribution Width 20.4 % (9.3-17.3); White Blood Count 11.1 T/CUMM (4-12)
[2017-08-07 06:11] LABS: Calcium 9.2 MG/DL (8.5-10.1); Magnesium 2.2 MG/DL (1.8-2.4); Osmolality,Calculated 281.7 MOS/KG (273-304); Potassium 4.1 MMOL/L (3.5-5.1)
[2017-08-07] MEDS: INSULIN NPH/REGULAR 70/30 100 UNIT/ML SUBCUT SCH ×2 (09:52→16:45)
[2017-08-07] MEDS: INSULIN REGULAR 100 UNIT/ML SUBCUT SCH ×4 (09:54→22:06)
[2017-08-07] MEDS: FUROSEMIDE 40 MG/4 ML VIAL IV SCH ×2 (09:55→16:45)
[2017-08-07] MEDS: SPIRONOLACTONE 25 MG TABLET PO SCH (10:02)
[2017-08-07] MEDS: DOCUSATE SODIUM 100 MG CAPSULE PO SCH ×2 (10:03→22:09)
[2017-08-07] MEDS: ASPIRIN EC 81 MG TABLET PO SCH (10:03)
[2017-08-07] MEDS: GENTAMICIN 0.1% CREAM 15 GM TUBE TOP SCH (10:04)
[2017-08-07] MEDS: POTASSIUM CHLORIDE 20 MEQ TABLET PO SCH ×3 (10:05→22:09)
[2017-08-07] MEDS: MAGNESIUM OXIDE 400 MG TABLET PO SCH (10:05)
[2017-08-07] MEDS: CLOPIDOGREL 75 MG TABLET PO SCH (10:05)
[2017-08-07] MEDS: POLYETHYLENE GLYCOL POWDER 17 GM PACK PO SCH ×2 (10:05→10:08)
[2017-08-07] MEDS: LISINOPRIL 2.5 MG TABLET PO SCH (10:05)
[2017-08-07] MEDS: metOLazone 5 MG TABLET PO SCH (10:06)
[2017-08-07] MEDS ORDERED: MORPHINE 10 MG/1 ML VIAL IV PRN (14:00)
[2017-08-07] MEDS: PANTOPRAZOLE 40 MG VIAL IV SCH (21:55)
[2017-08-07] MEDS: ATORVASTATIN 80 MG TABLET PO SCH (22:09)
[2017-08-08] MEDS: LEVALBUTEROL 1.25 MG/3 ML NEB RESP TX SCH ×4 (03:18→23:44)
[2017-08-08] MEDS: INSULIN NPH/REGULAR 70/30 100 UNIT/ML SUBCUT SCH ×2 (09:25→16:16)
[2017-08-08] MEDS: INSULIN REGULAR 100 UNIT/ML SUBCUT SCH ×4 (09:25→21:14)
[2017-08-08] MEDS: POLYETHYLENE GLYCOL POWDER 17 GM PACK PO SCH ×2 (09:26→09:28)
[2017-08-08] MEDS: CLOPIDOGREL 75 MG TABLET PO SCH (09:26)
[2017-08-08] MEDS: DOCUSATE SODIUM 100 MG CAPSULE PO SCH ×2 (09:26→21:12)
[2017-08-08] MEDS: ASPIRIN EC 81 MG TABLET PO SCH (09:26)
[2017-08-08] MEDS: SPIRONOLACTONE 25 MG TABLET PO SCH (09:26)
[2017-08-08] MEDS: POTASSIUM CHLORIDE 20 MEQ TABLET PO SCH ×2 (09:26→21:12)
[2017-08-08] MEDS: MAGNESIUM OXIDE 400 MG TABLET PO SCH (09:26)
[2017-08-08] MEDS: LISINOPRIL 2.5 MG TABLET PO SCH (09:26)
[2017-08-08] MEDS: FUROSEMIDE 40 MG/4 ML VIAL IV SCH (09:27)
[2017-08-08] MEDS: GENTAMICIN 0.1% CREAM 15 GM TUBE TOP SCH (09:27)
[2017-08-08] MEDS: metOLazone 5 MG TABLET PO SCH (09:27)
[2017-08-08] MEDS: CIPROFLOXACIN 250 MG TABLET PO SCH ×2 (12:01→21:12)
[2017-08-08] MEDS: ATORVASTATIN 80 MG TABLET PO SCH (21:12)
[2017-08-09 06:45] LABS: Calcium 7.9 MG/DL (8.5-10.1); Potassium 3.8 MMOL/L (3.5-5.1)
[2017-08-09] MEDS: LEVALBUTEROL 1.25 MG/3 ML NEB RESP TX SCH (07:58)
[2017-08-09] MEDS ORDERED: TUBERCULIN SKIN TEST 0.1 ML SYRINGE INTRADERM ONE (09:00)
[2017-08-09] MEDS ORDERED: PANTOPRAZOLE 40 MG TABLET PO SCH (09:00)
[2017-08-09] MEDS: INSULIN NPH/REGULAR 70/30 100 UNIT/ML SUBCUT SCH (10:20)
[2017-08-09] MEDS: POTASSIUM CHLORIDE 20 MEQ TABLET PO SCH (10:21)
[2017-08-09] MEDS: INSULIN REGULAR 100 UNIT/ML SUBCUT SCH ×2 (10:21→16:37)
[2017-08-09] MEDS: POLYETHYLENE GLYCOL POWDER 17 GM PACK PO SCH (10:21)
[2017-08-09] MEDS: LISINOPRIL 2.5 MG TABLET PO SCH (10:21)
[2017-08-09] MEDS: CIPROFLOXACIN 250 MG TABLET PO SCH (10:22)
[2017-08-09] MEDS: MAGNESIUM OXIDE 400 MG TABLET PO SCH (10:22)
[2017-08-09] MEDS: DOCUSATE SODIUM 100 MG CAPSULE PO SCH (10:22)
[2017-08-09] MEDS: CLOPIDOGREL 75 MG TABLET PO SCH (10:22)
[2017-08-09] MEDS: SPIRONOLACTONE 25 MG TABLET PO SCH (10:23)
[2017-08-09] MEDS: FUROSEMIDE 80 MG TABLET PO SCH (10:23)
[2017-08-09] MEDS: ASPIRIN EC 81 MG TABLET PO SCH (10:23)
[2017-08-09] MEDS: GENTAMICIN 0.1% CREAM 15 GM TUBE TOP SCH (10:24)
[2017-08-09 12:22] VITALS: BP 106/48
== END 2017-08-09 15:30 | DRG 871 ==
LOC: EDUNIT# → EDBD → N.ED 18:08 → SUATTDRO 20:43 → N.EDINP 20:43 → N.CC 21:57 → N.2E 07-28 13:58
PROVIDERS: ADMIT Internal Medicine Infectious Disease; ATTEND Internal Medicine

== ENCOUNTER 2017-09-09 14:15 | Inpatient (IN) ==
[2017-09-09] MEDS ORDERED: SODIUM CHLORIDE 0.9% 500 ML IV STA (15:01)
[2017-09-09] MEDS ORDERED: LEVALBUTEROL 1.25 MG/3 ML NEB RESP TX STA (15:01)
[2017-09-09 15:12] LABS: Basophils # 0.1 10*3/uL (0.0-0.2); Basophils % 0.5 % (0.0-0.8); Eosinophils # 1.1 10*3/uL (0.0-0.87); Eosinophils % 6.9 % (0.00-10.9); Hematocrit 38.3 VOL% (35.7-47.0); Hemoglobin 11.9 GM/DL (12.0-16.0); Immature Granulocytes % 0.5 %; Immature Granulocytes Absolute 0.08 #; Lymphocytes # 2.6 10*3/uL (1.4-4.0); Lymphocytes % 17.3 % (21.3-54.2); Mean Corpuscular HGB Conc 31.1 GM/DL (32-36); Mean Corpuscular Hemoglobin 26 PG (27-34); Mean Corpuscular Volume 82.2 FL (87-102); Mean Platelet Volume 12.5 FL (9.6-12.0); Monocytes # 0.8 10*3/uL (0.11-0.8); Monocytes % 5.3 % (1.7-12.7); Neutrophils # 10.5 10*3/uL (1.4-7.4); Neutrophils % 69.5 % (38.7-73.9); Platelet Count 334 T/CUMM (130-400); Red Blood Count 4.66 MC/CUMM (3.8-5.5); Red Cell Distribution Width 19.6 % (9.3-17.3); White Blood Count 15.2 T/CUMM (4-12)
[2017-09-09 15:26] LABS: Albumin 2.7 G/DL (3.4-5.0); Bilirubin,Total 0.5 MG/DL (0.2-1.0); Calcium 10.4 MG/DL (8.5-10.1); Osmolality,Calculated 312.8 MOS/KG (273-304); Total Protein 8.6 G/DL (6.4-8.3)
[2017-09-09 15:39] LABS: Potassium 7.6 MMOL/L (3.5-5.1)
[2017-09-09] MEDS ORDERED: ONDANSETRON 4 MG/2 ML VIAL ONE (17:04)
[2017-09-09] MEDS ORDERED: fentaNYL 100 MCG/2 ML VIAL ONE (17:04)
[2017-09-09] MEDS ORDERED: DEXTROSE 50% 25 GM/50 ML VIAL IV STA ×2 (17:27→20:13)
[2017-09-09] MEDS ORDERED: SODIUM BICARBONATE 50 MEQ/50 ML VIAL IV STA ×2 (17:27→22:43)
[2017-09-09] MEDS ORDERED: INSULIN REGULAR 100 UNIT/ML IV STA ×2 (17:27→20:14)
[2017-09-09] MEDS ORDERED: LEVOFLOXACIN INJ 500 MG in PREMIX 1 EACH IV STA (17:29)
[2017-09-09] MEDS ORDERED: CALCIUM CHLORIDE 1,000 MG/10 ML SYRINGE IV STA (17:36)
[2017-09-09] MEDS ORDERED: DEXTROSE 50% 25 GM/50 ML SYRINGE IV ONE ×2 (17:38→20:17)
[2017-09-09] MEDS ORDERED: SODIUM BICARBONATE 50 MEQ/50 ML SYRINGE IV ONE ×2 (17:38→22:32)
[2017-09-09] MEDS ORDERED: LEVOFLOXACIN INJ 100 ML IV ONE (17:38)
[2017-09-09] MEDS ORDERED: INSULIN REGULAR 100 UNIT/ML ONE ×2 (17:39→20:19)
[2017-09-09] MEDS ORDERED: SODIUM CHLORIDE 0.9% 1,000 ML IV STA (18:00)
[2017-09-09] MEDS ORDERED: CALCIUM CHLORIDE 1,000 MG/10 ML SYRINGE IV ONE (18:10)
[2017-09-09 18:19] LABS: Apearance,Urine CLOUDY (Clear); Bilirubin,Urine Negative (Negative); Blood, Urine Small mg/dL (Negative); Glucose,Urine (UA) Negative (Negative); Ketones,Urine Negative (Negative); Nitrite,Urine Negative (Negative); Protein,Urine 30 MG/DL; RBC,Urine 87 /HPF (0-4); Urine Color Yellow (Yellow); Urine Specific Gravity 1.011 (1.001-1.035); Urine Urobilinogen < 2.0 EU/DL (0.2-1.0); WBC,Urine 2852 /HPF (0-6)
[2017-09-09] MEDS ORDERED: ONDANSETRON 4 MG/2 ML VIAL IV STA (19:07)
[2017-09-09] MEDS ORDERED: fentaNYL 100 MCG/2 ML VIAL IV STA (19:07)
[2017-09-09] MEDS ORDERED: SODIUM POLYSTYRENE SULFATE 15 GM/60 ML BOTTLE PO STA (20:13)
[2017-09-09] MEDS ORDERED: SODIUM POLYSTYRENE SULFATE 15 GM/60 ML BOTTLE ONE (20:17)
[2017-09-10] MEDS ORDERED: SODIUM CHLORIDE 0.9% 1,000 ML IV SCH (00:50)
[2017-09-10] MEDS ORDERED: ONDANSETRON 4 MG/2 ML VIAL IV PRN (00:50)
[2017-09-10] MEDS ORDERED: ACETAMINOPHEN 325 MG TABLET PO PRN (00:50)
[2017-09-10] MEDS ORDERED: SODIUM POLYSTYRENE SULFATE 15 GM/60 ML BOTTLE PO STA (00:50)
[2017-09-10] MEDS ORDERED: SODIUM POLYSTYRENE SULFATE 15 GM/60 ML BOTTLE PO ONE (00:50)
[2017-09-10] MEDS: DOCUSATE SODIUM 100 MG CAPSULE PO SCH ×3 (01:40→21:06)
[2017-09-10] MEDS: HEPARIN 5,000 UNIT/1 ML VIAL SUBCUT SCH ×3 (01:44→17:32)
[2017-09-10] MEDS: NYSTATIN CREAM 15 GM TUBE TOP SCH ×4 (01:44→21:06)
[2017-09-10] MEDS: guaiFENesin/DM ER 600-30 MG TABLET PO SCH ×3 (01:45→21:05)
[2017-09-10 01:48] LABS: Basophils # 0.1 10*3/uL (0.0-0.2); Basophils % 0.6 % (0.0-0.8); Eosinophils % 7.7 % (0.00-10.9); Hematocrit 34.5 VOL% (35.7-47.0); Hemoglobin 10.7 GM/DL (12.0-16.0); Immature Granulocytes % 0.5 %; Immature Granulocytes Absolute 0.06 #; Lymphocytes # 2.1 10*3/uL (1.4-4.0); Mean Corpuscular Hemoglobin 26 PG (27-34); Mean Corpuscular Volume 82.5 FL (87-102); Mean Platelet Volume 12.4 FL (9.6-12.0); Monocytes # 0.7 10*3/uL (0.11-0.8); Monocytes % 5.6 % (1.7-12.7); Neutrophils # 8.6 10*3/uL (1.4-7.4); Neutrophils % 68.6 % (38.7-73.9); Platelet Count 306 T/CUMM (130-400); Red Blood Count 4.18 MC/CUMM (3.8-5.5); Red Cell Distribution Width 19.5 % (9.3-17.3); White Blood Count 12.6 T/CUMM (4-12)
[2017-09-10 02:12] LABS: Calcium 10.4 MG/DL (8.5-10.1); Magnesium 2.2 MG/DL (1.8-2.4); Osmolality,Calculated 324.7 MOS/KG (273-304); Potassium 5.8 MMOL/L (3.5-5.1)
[2017-09-10] MEDS ORDERED: INSULIN REGULAR 100 UNIT/ML IV ONE (03:39)
[2017-09-10] MEDS ORDERED: CALCIUM GLUCONATE 1,000 MG in SODIUM CHLORIDE 0.9% 100 ML IV ONE (03:39)
[2017-09-10] MEDS ORDERED: SODIUM BICARBONATE 50 MEQ/50 ML SYRINGE IV ONE (03:39)
[2017-09-10] MEDS ORDERED: DEXTROSE 50% 25 GM/50 ML VIAL IV ONE (03:40)
[2017-09-10] MEDS ORDERED: CALCIUM GLUCONATE 1,000 MG/10 ML VIAL IV ONE (03:47)
[2017-09-10] MEDS ORDERED: DEXTROSE 50% 25 GM/50 ML VIAL IV PRN (05:08)
[2017-09-10] MEDS ORDERED: GLUCAGON 1 MG VIAL IM PRN (05:08)
[2017-09-10 07:41] LABS: ABG Base Excess -1.7 MMOL/L (-2.5-2.5); ABG HCO3 22.9 MMOL/L (20-26); ABG Oxygen Saturation 95.1 % (95-100); ABG PCO2 44.5 MM HG (35-48); ABG PH 7.342 (7.35-7.45); ABG PO2 78.9 MM HG (80-95); ABG TCO2 22.1 MMOL/L (23-27)
[2017-09-10 07:42] LABS: Allen Test Positive
[2017-09-10] MEDS: SODIUM CHLORIDE 0.45% 1,000 ML IV SCH ×3 (08:18→20:59)
[2017-09-10] MEDS: methylPREDNISolone SOD SUC 40 MG/1 ML VIAL IV SCH ×2 (08:19→15:32)
[2017-09-10] MEDS: PANTOPRAZOLE 40 MG TABLET PO SCH (08:19)
[2017-09-10] MEDS: INSULIN REGULAR 100 UNIT/ML SUBCUT SCH ×4 (08:58→21:05)
[2017-09-10] MEDS: LEVALBUTEROL 1.25 MG/3 ML NEB RESP TX SCH ×2 (12:50→19:12)
[2017-09-10] MEDS: IPRATROPIUM 500 MCG/2.5 ML NEB RESP TX SCH ×2 (12:50→19:05)
[2017-09-10] MEDS ORDERED: LEVALBUTEROL HCL 1.25 MG IH SCH (15:00)
[2017-09-10] MEDS: BACITRACIN OINT 0.9 GM PACK TOP SCH (17:32)
[2017-09-10] MEDS: DESITIN 4OZ/NYSTATIN 15 GRAM MIXTURE PASTE TOP SCH (21:05)
[2017-09-10] MEDS: MORPHINE 2 MG/1 ML SYRINGE IV PRN (21:05)
[2017-09-10] MEDS: MEGESTROL 40 MG TABLET PO SCH (21:05)
[2017-09-10] MEDS: ATORVASTATIN 80 MG TABLET PO SCH (21:05)
[2017-09-11] MEDS: HEPARIN 5,000 UNIT/1 ML VIAL SUBCUT SCH ×3 (00:44→17:23)
[2017-09-11] MEDS: methylPREDNISolone SOD SUC 40 MG/1 ML VIAL IV SCH ×3 (00:48→21:21)
[2017-09-11] MEDS: SODIUM CHLORIDE 0.45% 1,000 ML IV SCH ×5 (00:49→21:30)
[2017-09-11] MEDS: IPRATROPIUM 500 MCG/2.5 ML NEB RESP TX SCH ×4 (00:50→19:00)
[2017-09-11] MEDS: LEVALBUTEROL 1.25 MG/3 ML NEB RESP TX SCH ×4 (00:50→19:00)
[2017-09-11] MEDS: MORPHINE 2 MG/1 ML SYRINGE IV PRN (03:30)
[2017-09-11 04:11] LABS: Basophils % 0.2 % (0.0-0.8); Hematocrit 29.5 VOL% (35.7-47.0); Hemoglobin 9.5 GM/DL (12.0-16.0); Immature Granulocytes % 0.5 %; Immature Granulocytes Absolute 0.06 #; Lymphocytes # 1.1 10*3/uL (1.4-4.0); Lymphocytes % 8.6 % (21.3-54.2); Mean Corpuscular HGB Conc 32.2 GM/DL (32-36); Mean Corpuscular Hemoglobin 27 PG (27-34); Mean Corpuscular Volume 82.4 FL (87-102); Mean Platelet Volume 12.3 FL (9.6-12.0); Monocytes # 0.2 10*3/uL (0.11-0.8); Monocytes % 1.3 % (1.7-12.7); Neutrophils # 11.5 10*3/uL (1.4-7.4); Neutrophils % 89.4 % (38.7-73.9); Platelet Count 280 T/CUMM (130-400); Red Blood Count 3.58 MC/CUMM (3.8-5.5); Red Cell Distribution Width 19.7 % (9.3-17.3); White Blood Count 12.8 T/CUMM (4-12)
[2017-09-11 04:36] LABS: Calcium 9.2 MG/DL (8.5-10.1); Magnesium 1.9 MG/DL (1.8-2.4); Osmolality,Calculated 315.1 MOS/KG (273-304); Potassium 4.9 MMOL/L (3.5-5.1)
[2017-09-11 04:46] LABS: Allen Test Positive
[2017-09-11 04:47] LABS: ABG Base Excess -3.7 MMOL/L (-2.5-2.5); ABG HCO3 21.2 MMOL/L (20-26); ABG Oxygen Saturation 90.1 % (95-100); ABG PCO2 46.6 MM HG (35-48); ABG PH 7.297 (7.35-7.45); ABG PO2 63.9 MM HG (80-95); ABG TCO2 21.2 MMOL/L (23-27)
[2017-09-11] MEDS: guaiFENesin/DM ER 600-30 MG TABLET PO SCH ×2 (08:57→21:26)
[2017-09-11] MEDS: ASPIRIN EC 81 MG TABLET PO SCH (08:57)
[2017-09-11] MEDS: PANTOPRAZOLE 40 MG TABLET PO SCH (08:57)
[2017-09-11] MEDS: INSULIN REGULAR 100 UNIT/ML SUBCUT SCH ×4 (08:57→22:02)
[2017-09-11] MEDS: MEGESTROL 40 MG TABLET PO SCH ×2 (08:57→21:26)
[2017-09-11] MEDS: CLOPIDOGREL 75 MG TABLET PO SCH (09:04)
[2017-09-11] MEDS: NYSTATIN CREAM 15 GM TUBE TOP SCH ×3 (09:05→21:26)
[2017-09-11] MEDS: SKIN HEALING OINT (AQUAPHOR) 50 GM TUBE TOP PRN (09:05)
[2017-09-11] MEDS: DESITIN 4OZ/NYSTATIN 15 GRAM MIXTURE PASTE TOP SCH ×2 (09:05→21:28)
[2017-09-11] MEDS: BACITRACIN OINT 0.9 GM PACK TOP SCH (09:07)
[2017-09-11] MEDS: DOCUSATE SODIUM 100 MG CAPSULE PO SCH ×2 (09:10→21:25)
[2017-09-11] MEDS: LEVOFLOXACIN INJ 500 MG in PREMIX 1 EACH IV SCH (21:23)
[2017-09-11] MEDS: ATORVASTATIN 80 MG TABLET PO SCH (21:25)
[2017-09-12] MEDS: IPRATROPIUM 500 MCG/2.5 ML NEB RESP TX SCH ×4 (00:50→20:33)
[2017-09-12] MEDS: LEVALBUTEROL 1.25 MG/3 ML NEB RESP TX SCH ×4 (00:50→20:33)
[2017-09-12] MEDS: HEPARIN 5,000 UNIT/1 ML VIAL SUBCUT SCH ×3 (01:03→18:28)
[2017-09-12] MEDS: methylPREDNISolone SOD SUC 40 MG/1 ML VIAL IV SCH ×2 (06:44→18:01)
[2017-09-12 07:23] LABS: Basophils % 0.1 % (0.0-0.8); Hematocrit 28.5 VOL% (35.7-47.0); Hemoglobin 8.9 GM/DL (12.0-16.0); Immature Granulocytes % 0.8 %; Immature Granulocytes Absolute 0.13 #; Lymphocytes % 6.7 % (21.3-54.2); Mean Corpuscular HGB Conc 31.2 GM/DL (32-36); Mean Corpuscular Hemoglobin 26 PG (27-34); Mean Corpuscular Volume 82.4 FL (87-102); Mean Platelet Volume 12.2 FL (9.6-12.0); Monocytes # 0.4 10*3/uL (0.11-0.8); Monocytes % 2.5 % (1.7-12.7); Neutrophils # 13.8 10*3/uL (1.4-7.4); Neutrophils % 89.9 % (38.7-73.9); Platelet Count 281 T/CUMM (130-400); Red Blood Count 3.46 MC/CUMM (3.8-5.5); Red Cell Distribution Width 19.1 % (9.3-17.3); White Blood Count 15.3 T/CUMM (4-12)
[2017-09-12 07:49] LABS: Magnesium 1.8 MG/DL (1.8-2.4); Osmolality,Calculated 306.1 MOS/KG (273-304); Potassium 4.7 MMOL/L (3.5-5.1)
[2017-09-12] MEDS: INSULIN REGULAR 100 UNIT/ML SUBCUT SCH ×4 (08:42→21:16)
[2017-09-12] MEDS: SODIUM CHLORIDE 0.45% 1,000 ML IV SCH (08:43)
[2017-09-12] MEDS: CLOPIDOGREL 75 MG TABLET PO SCH (10:07)
[2017-09-12] MEDS: DOCUSATE SODIUM 100 MG CAPSULE PO SCH ×2 (10:07→21:16)
[2017-09-12] MEDS: ASPIRIN EC 81 MG TABLET PO SCH (10:07)
[2017-09-12] MEDS: PANTOPRAZOLE 40 MG TABLET PO SCH (10:07)
[2017-09-12] MEDS: guaiFENesin/DM ER 600-30 MG TABLET PO SCH ×2 (10:07→21:16)
[2017-09-12] MEDS: MEGESTROL 40 MG TABLET PO SCH ×2 (10:07→21:16)
[2017-09-12] MEDS: NYSTATIN CREAM 15 GM TUBE TOP SCH ×3 (10:08→21:16)
[2017-09-12] MEDS: DESITIN 4OZ/NYSTATIN 15 GRAM MIXTURE PASTE TOP SCH ×2 (10:08→21:16)
[2017-09-12] MEDS: BACITRACIN OINT 0.9 GM PACK TOP SCH (10:08)
[2017-09-12] MEDS: ATORVASTATIN 80 MG TABLET PO SCH (21:16)
[2017-09-13] MEDS: LEVALBUTEROL 1.25 MG/3 ML NEB RESP TX SCH ×4 (00:37→19:28)
[2017-09-13] MEDS: IPRATROPIUM 500 MCG/2.5 ML NEB RESP TX SCH ×4 (00:37→19:28)
[2017-09-13] MEDS: HEPARIN 5,000 UNIT/1 ML VIAL SUBCUT SCH ×3 (01:08→16:37)
[2017-09-13] MEDS: methylPREDNISolone SOD SUC 40 MG/1 ML VIAL IV SCH ×2 (06:01→21:02)
[2017-09-13 07:25] LABS: Basophils % 0.1 % (0.0-0.8); Hematocrit 30.1 VOL% (35.7-47.0); Hemoglobin 9.5 GM/DL (12.0-16.0); Immature Granulocytes % 1.3 %; Immature Granulocytes Absolute 0.17 #; Lymphocytes # 1.1 10*3/uL (1.4-4.0); Lymphocytes % 8.8 % (21.3-54.2); Mean Corpuscular HGB Conc 31.6 GM/DL (32-36); Mean Corpuscular Hemoglobin 25 PG (27-34); Mean Corpuscular Volume 80.5 FL (87-102); Mean Platelet Volume 12.4 FL (9.6-12.0); Monocytes # 0.7 10*3/uL (0.11-0.8); Monocytes % 5.1 % (1.7-12.7); Neutrophils % 84.7 % (38.7-73.9); Platelet Count 292 T/CUMM (130-400); Red Blood Count 3.74 MC/CUMM (3.8-5.5); Red Cell Distribution Width 19.3 % (9.3-17.3)
[2017-09-13] MEDS: INSULIN REGULAR 100 UNIT/ML SUBCUT SCH ×4 (07:32→20:57)
[2017-09-13 07:40] LABS: Magnesium 1.8 MG/DL (1.8-2.4); Osmolality,Calculated 303.8 MOS/KG (273-304); Potassium 4.6 MMOL/L (3.5-5.1)
[2017-09-13] MEDS: ASPIRIN EC 81 MG TABLET PO SCH (09:12)
[2017-09-13] MEDS: BACITRACIN OINT 0.9 GM PACK TOP SCH (09:12)
[2017-09-13] MEDS: MEGESTROL 40 MG TABLET PO SCH ×2 (09:12→21:02)
[2017-09-13] MEDS: guaiFENesin/DM ER 600-30 MG TABLET PO SCH ×2 (09:12→21:02)
[2017-09-13] MEDS: CLOPIDOGREL 75 MG TABLET PO SCH (09:13)
[2017-09-13] MEDS: PANTOPRAZOLE 40 MG TABLET PO SCH (09:13)
[2017-09-13] MEDS: NYSTATIN CREAM 15 GM TUBE TOP SCH ×3 (09:13→21:02)
[2017-09-13] MEDS: DESITIN 4OZ/NYSTATIN 15 GRAM MIXTURE PASTE TOP SCH ×2 (09:13→21:02)
[2017-09-13] MEDS: DOCUSATE SODIUM 100 MG CAPSULE PO SCH ×2 (09:13→20:57)
[2017-09-13] MEDS: ATORVASTATIN 80 MG TABLET PO SCH (21:02)
[2017-09-13] MEDS: LEVOFLOXACIN INJ 500 MG in PREMIX 1 EACH IV SCH (21:04)
[2017-09-14] MEDS: IPRATROPIUM 500 MCG/2.5 ML NEB RESP TX SCH ×4 (00:19→20:00)
[2017-09-14] MEDS: LEVALBUTEROL 1.25 MG/3 ML NEB RESP TX SCH ×4 (00:19→20:00)
[2017-09-14] MEDS: HEPARIN 5,000 UNIT/1 ML VIAL SUBCUT SCH ×3 (00:40→17:03)
[2017-09-14] MEDS: methylPREDNISolone SOD SUC 40 MG/1 ML VIAL IV SCH ×2 (06:13→18:04)
[2017-09-14] MEDS: INSULIN REGULAR 100 UNIT/ML SUBCUT SCH ×4 (08:18→20:42)
[2017-09-14] MEDS: guaiFENesin/DM ER 600-30 MG TABLET PO SCH ×2 (09:13→20:41)
[2017-09-14] MEDS: CLOPIDOGREL 75 MG TABLET PO SCH (09:13)
[2017-09-14] MEDS: BACITRACIN OINT 0.9 GM PACK TOP SCH (09:13)
[2017-09-14] MEDS: DOCUSATE SODIUM 100 MG CAPSULE PO SCH ×2 (09:13→20:41)
[2017-09-14] MEDS: PANTOPRAZOLE 40 MG TABLET PO SCH (09:13)
[2017-09-14] MEDS: ASPIRIN EC 81 MG TABLET PO SCH (09:13)
[2017-09-14] MEDS: DESITIN 4OZ/NYSTATIN 15 GRAM MIXTURE PASTE TOP SCH ×2 (09:14→20:45)
[2017-09-14] MEDS: NYSTATIN CREAM 15 GM TUBE TOP SCH ×3 (09:14→20:45)
[2017-09-14] MEDS: MEGESTROL 40 MG TABLET PO SCH ×2 (09:21→20:42)
[2017-09-14] MEDS ORDERED: TUBERCULIN SKIN TEST 0.1 ML SYRINGE INTRADERM ONE (10:48)
[2017-09-14] MEDS: SKIN HEALING OINT (AQUAPHOR) 50 GM TUBE TOP PRN (16:39)
[2017-09-14] MEDS: ATORVASTATIN 80 MG TABLET PO SCH (20:42)
[2017-09-15] MEDS: IPRATROPIUM 500 MCG/2.5 ML NEB RESP TX SCH ×4 (00:35→19:56)
[2017-09-15] MEDS: LEVALBUTEROL 1.25 MG/3 ML NEB RESP TX SCH ×4 (00:35→19:56)
[2017-09-15] MEDS: HEPARIN 5,000 UNIT/1 ML VIAL SUBCUT SCH ×3 (01:03→16:25)
[2017-09-15] MEDS: methylPREDNISolone SOD SUC 40 MG/1 ML VIAL IV SCH ×2 (06:19→18:15)
[2017-09-15] MEDS: BACITRACIN OINT 0.9 GM PACK TOP SCH (09:43)
[2017-09-15] MEDS: ASPIRIN EC 81 MG TABLET PO SCH (09:43)
[2017-09-15] MEDS: PANTOPRAZOLE 40 MG TABLET PO SCH (09:43)
[2017-09-15] MEDS: DESITIN 4OZ/NYSTATIN 15 GRAM MIXTURE PASTE TOP SCH ×2 (09:43→21:07)
[2017-09-15] MEDS: NYSTATIN CREAM 15 GM TUBE TOP SCH ×3 (09:43→21:06)
[2017-09-15] MEDS: DOCUSATE SODIUM 100 MG CAPSULE PO SCH ×2 (09:43→20:58)
[2017-09-15] MEDS: CLOPIDOGREL 75 MG TABLET PO SCH (09:43)
[2017-09-15] MEDS: guaiFENesin/DM ER 600-30 MG TABLET PO SCH ×2 (09:43→20:59)
[2017-09-15] MEDS: MEGESTROL 40 MG TABLET PO SCH ×2 (09:43→20:59)
[2017-09-15] MEDS: INSULIN REGULAR 100 UNIT/ML SUBCUT SCH ×4 (09:43→21:07)
[2017-09-15] MEDS: MORPHINE 2 MG/1 ML SYRINGE IV PRN (17:46)
[2017-09-15] MEDS: ATORVASTATIN 80 MG TABLET PO SCH (20:58)
[2017-09-15] MEDS: LEVOFLOXACIN INJ 500 MG in PREMIX 1 EACH IV SCH (21:01)
[2017-09-16] MEDS: IPRATROPIUM 500 MCG/2.5 ML NEB RESP TX SCH ×4 (00:35→19:42)
[2017-09-16] MEDS: LEVALBUTEROL 1.25 MG/3 ML NEB RESP TX SCH ×4 (00:35→19:42)
[2017-09-16] MEDS: HEPARIN 5,000 UNIT/1 ML VIAL SUBCUT SCH ×3 (01:22→16:35)
[2017-09-16] MEDS: methylPREDNISolone SOD SUC 40 MG/1 ML VIAL IV SCH ×2 (06:24→18:11)
[2017-09-16] MEDS: guaiFENesin/DM ER 600-30 MG TABLET PO SCH ×2 (08:34→21:49)
[2017-09-16] MEDS: CLOPIDOGREL 75 MG TABLET PO SCH (08:34)
[2017-09-16] MEDS: MEGESTROL 40 MG TABLET PO SCH ×2 (08:34→21:49)
[2017-09-16] MEDS: PANTOPRAZOLE 40 MG TABLET PO SCH (08:34)
[2017-09-16] MEDS: DOCUSATE SODIUM 100 MG CAPSULE PO SCH ×2 (08:34→21:49)
[2017-09-16] MEDS: ASPIRIN EC 81 MG TABLET PO SCH (08:34)
[2017-09-16] MEDS: NYSTATIN CREAM 15 GM TUBE TOP SCH ×3 (08:34→21:49)
[2017-09-16] MEDS: INSULIN REGULAR 100 UNIT/ML SUBCUT SCH ×4 (08:35→21:49)
[2017-09-16] MEDS: DESITIN 4OZ/NYSTATIN 15 GRAM MIXTURE PASTE TOP SCH ×2 (13:10→21:50)
[2017-09-16] MEDS: BACITRACIN OINT 0.9 GM PACK TOP SCH (13:10)
[2017-09-16] MEDS: ATORVASTATIN 80 MG TABLET PO SCH (21:49)
[2017-09-17] MEDS: IPRATROPIUM 500 MCG/2.5 ML NEB RESP TX SCH ×2 (00:18→07:21)
[2017-09-17] MEDS: LEVALBUTEROL 1.25 MG/3 ML NEB RESP TX SCH ×2 (00:18→07:21)
[2017-09-17] MEDS: MORPHINE 2 MG/1 ML SYRINGE IV PRN (02:55)
[2017-09-17] MEDS: HEPARIN 5,000 UNIT/1 ML VIAL SUBCUT SCH ×2 (02:55→08:20)
[2017-09-17] MEDS: methylPREDNISolone SOD SUC 40 MG/1 ML VIAL IV SCH (06:16)
[2017-09-17] MEDS: INSULIN REGULAR 100 UNIT/ML SUBCUT SCH ×2 (07:51→13:05)
[2017-09-17] MEDS: MEGESTROL 40 MG TABLET PO SCH (08:18)
[2017-09-17] MEDS: CLOPIDOGREL 75 MG TABLET PO SCH (08:18)
[2017-09-17] MEDS: DOCUSATE SODIUM 100 MG CAPSULE PO SCH (08:18)
[2017-09-17] MEDS: guaiFENesin/DM ER 600-30 MG TABLET PO SCH (08:18)
[2017-09-17] MEDS: BACITRACIN OINT 0.9 GM PACK TOP SCH (08:18)
[2017-09-17] MEDS: PANTOPRAZOLE 40 MG TABLET PO SCH (08:18)
[2017-09-17] MEDS: ASPIRIN EC 81 MG TABLET PO SCH (08:18)
[2017-09-17] MEDS: DESITIN 4OZ/NYSTATIN 15 GRAM MIXTURE PASTE TOP SCH (08:19)
[2017-09-17] MEDS: NYSTATIN CREAM 15 GM TUBE TOP SCH (08:19)
[2017-09-17 12:39] VITALS: BP 154/67
== END 2017-09-17 13:41 | DRG 871 ==
LOC: N.ED 14:15 → N.EDINP 17:32 → SUATTDRO 17:32 → N.ICU 23:37 → N.5E 09-11 12:46
PROVIDERS: ADMIT Internal Medicine; ATTEND Internal Medicine

== ENCOUNTER 2017-10-20 23:23 | Inpatient (IN) ==
[2017-10-20] MEDS ORDERED: ACETAMINOPHEN 325 MG TABLET PO ONE (23:47)
[2017-10-20] MEDS ORDERED: SODIUM CHLORIDE 0.9% 500 ML IV STA (23:47)
[2017-10-21 00:38] LABS: INR 1.1; PT Patient Result 11.2 SECS
[2017-10-21 00:42] LABS: Basophils # 0.2 10*3/uL (0.0-0.2); Basophils % 1.3 % (0.0-0.8); Eosinophils # 0.6 10*3/uL (0.0-0.87); Hematocrit 35.2 VOL% (35.7-47.0); Hemoglobin 11.4 GM/DL (12.0-16.0); Immature Granulocytes % 0.9 %; Immature Granulocytes Absolute 0.12 #; Lymphocytes # 2.9 10*3/uL (1.4-4.0); Lymphocytes % 21.5 % (21.3-54.2); Mean Corpuscular HGB Conc 32.4 GM/DL (32-36); Mean Corpuscular Hemoglobin 27 PG (27-34); Mean Corpuscular Volume 82.2 FL (87-102); Mean Platelet Volume 12.1 FL (9.6-12.0); Monocytes # 1.3 10*3/uL (0.11-0.8); Monocytes % 9.3 % (1.7-12.7); Neutrophils # 8.6 10*3/uL (1.4-7.4); Platelet Count 434 T/CUMM (130-400); Red Blood Count 4.28 MC/CUMM (3.8-5.5); White Blood Count 13.6 T/CUMM (4-12)
[2017-10-21 00:43] LABS: Alanine Aminotransferase 20 U/L (13-56); Albumin 2.4 G/DL (3.4-5.0); Alkaline Phosphatase 78 U/L (45-117); Aspartate Amino Transferase 28 U/L (0-37); Blood Urea Nitrogen 25 MG/DL (7-18); Calcium 8.4 MG/DL (8.5-10.1); Glucose 96 MG/DL (74-106); Osmolality,Calculated 286.1 MOS/KG (273-304); Potassium 3.5 MMOL/L (3.5-5.1); Sodium 142 MMOL/L (136-145); Total Protein 6.6 G/DL (6.4-8.3); Troponin I Only < 0.015 NG/ML (0.00-0.045)
[2017-10-21] MEDS ORDERED: LEVOFLOXACIN INJ 750 MG in PREMIX 1 EACH IV STA (00:53)
[2017-10-21] MEDS ORDERED: MEROPENEM 1,000 MG in SODIUM CHLORIDE 0.9% 100 ML IV STA (00:54)
[2017-10-21 01:01] LABS: Apearance,Urine CLOUDY (Clear); Bacteria,Urine Occasional /HPF (Few); Bilirubin,Urine Negative (Negative); Blood, Urine Negative (Negative); Calcium Oxalate Crystals,Urine Occasional /HPF (Few); Glucose,Urine (UA) Negative (Negative); Hyaline Casts,Urine 11 /LPF (0-3); Ketones,Urine Negative (Negative); Mucus,Urine Occasional /LPF (Occasional); Nitrite,Urine Negative (Negative); Protein,Urine Negative; RBC,Urine 5 /HPF (0-4); Urine Color Yellow (Yellow); Urine Specific Gravity 1.012 (1.001-1.035); Urine Urobilinogen < 2.0 EU/DL (0.2-1.0); WBC,Urine 158 /HPF (0-6)
[2017-10-21] MEDS ORDERED: MEROPENEM 1,000 MG VIAL IV ONE (01:21)
[2017-10-21] MEDS ORDERED: ACETAMINOPHEN 325 MG TABLET ONE (01:21)
[2017-10-21] MEDS ORDERED: LEVOFLOXACIN INJ 150 ML IV ONE (01:21)
[2017-10-21] MEDS ORDERED: DEXTROSE 50% 25 GM/50 ML VIAL IV PRN (02:32)
[2017-10-21] MEDS ORDERED: GLUCAGON 1 MG VIAL IM PRN (02:32)
[2017-10-21] MEDS ORDERED: SODIUM CHLORIDE 0.9% 100 ML IV ONE (02:44)
[2017-10-21 05:09] LABS: Basophils # 0.2 10*3/uL (0.0-0.2); Basophils % 1.2 % (0.0-0.8); Eosinophils # 0.5 10*3/uL (0.0-0.87); Eosinophils % 3.8 % (0.00-10.9); Hematocrit 35.9 VOL% (35.7-47.0); Hemoglobin 11.2 GM/DL (12.0-16.0); Immature Granulocytes % 0.5 %; Immature Granulocytes Absolute 0.07 #; Lymphocytes # 2.9 10*3/uL (1.4-4.0); Lymphocytes % 20.5 % (21.3-54.2); Mean Corpuscular HGB Conc 31.2 GM/DL (32-36); Mean Corpuscular Hemoglobin 26 PG (27-34); Mean Corpuscular Volume 83.3 FL (87-102); Mean Platelet Volume 11.7 FL (9.6-12.0); Monocytes % 7.1 % (1.7-12.7); Neutrophils # 9.5 10*3/uL (1.4-7.4); Neutrophils % 66.9 % (38.7-73.9); Platelet Count 403 T/CUMM (130-400); Red Blood Count 4.31 MC/CUMM (3.8-5.5); Red Cell Distribution Width 21.9 % (9.3-17.3); White Blood Count 14.2 T/CUMM (4-12)
[2017-10-21 05:27] LABS: Calcium 8.5 MG/DL (8.5-10.1); Osmolality,Calculated 286.1 MOS/KG (273-304); Potassium 3.6 MMOL/L (3.5-5.1)
[2017-10-21] MEDS ORDERED: VANCOMYCIN INJ 1,750 MG in SODIUM CHLORIDE 0.9% 500 ML IV SCH (05:30)
[2017-10-21] MEDS ORDERED: MEROPENEM 1,000 MG in SYRINGE 1 EACH IV SCH (09:00)
[2017-10-21] MEDS: INSULIN LISPRO 100 UNIT/ML SUBCUT SCH ×4 (09:28→21:18)
[2017-10-21] MEDS ORDERED: ACETAMINOPHEN 325 MG TABLET PO PRN (10:20)
[2017-10-21] MEDS ORDERED: CALCIUM CARBONATE CHEW 500 MG TABLET PO PRN (10:20)
[2017-10-21] MEDS: ENOXAPARIN 40 MG/0.4 ML SYRINGE SUBCUT SCH (10:30)
[2017-10-21] MEDS ORDERED: predniSONE 10 MG TABLET PO SCH (10:30)
[2017-10-21] MEDS: VITAMIN E 400 UNIT CAPSULE PO SCH (10:46)
[2017-10-21] MEDS: CHOLECALCIFEROL 400 UNIT TABLET PO SCH (10:46)
[2017-10-21] MEDS: SPIRONOLACTONE 25 MG TABLET PO SCH (10:46)
[2017-10-21] MEDS: CARVEDILOL 6.25 MG TABLET PO SCH ×2 (10:47→21:14)
[2017-10-21] MEDS: FUROSEMIDE 80 MG TABLET PO SCH (10:47)
[2017-10-21] MEDS: ASPIRIN EC 81 MG TABLET PO SCH (10:47)
[2017-10-21] MEDS: MEGESTROL 40 MG TABLET PO SCH ×2 (10:48→21:14)
[2017-10-21] MEDS: ASCORBIC ACID 500 MG TABLET PO SCH (10:48)
[2017-10-21] MEDS: INSULIN NPH/REGULAR 70/30 100 UNIT/ML SUBCUT SCH ×2 (10:50→17:14)
[2017-10-21] MEDS: CLOPIDOGREL 75 MG TABLET PO SCH (10:53)
[2017-10-21] MEDS: SKIN HEALING OINT (AQUAPHOR) 50 GM TUBE TOP PRN (11:30)
[2017-10-21] MEDS: LEVALBUTEROL 1.25 MG/3 ML NEB RESP TX SCH ×2 (17:06→20:15)
[2017-10-21] MEDS: methylPREDNISolone SOD SUC 125 MG/2 ML VIAL IV SCH (17:34)
[2017-10-21] MEDS: ATORVASTATIN 80 MG TABLET PO SCH (21:15)
[2017-10-22] MEDS: LEVOFLOXACIN INJ 750 MG in PREMIX 1 EACH IV SCH (02:27)
[2017-10-22] MEDS: methylPREDNISolone SOD SUC 125 MG/2 ML VIAL IV SCH ×2 (04:46→16:41)
[2017-10-22] MEDS: LEVALBUTEROL 1.25 MG/3 ML NEB RESP TX SCH ×3 (07:30→19:05)
[2017-10-22] MEDS: ASCORBIC ACID 500 MG TABLET PO SCH (08:57)
[2017-10-22] MEDS: FUROSEMIDE 80 MG TABLET PO SCH (08:57)
[2017-10-22] MEDS: VITAMIN E 400 UNIT CAPSULE PO SCH (08:57)
[2017-10-22] MEDS: ASPIRIN EC 81 MG TABLET PO SCH (08:58)
[2017-10-22] MEDS: CARVEDILOL 6.25 MG TABLET PO SCH ×2 (08:58→21:54)
[2017-10-22] MEDS: CHOLECALCIFEROL 400 UNIT TABLET PO SCH (08:58)
[2017-10-22] MEDS: CLOPIDOGREL 75 MG TABLET PO SCH (08:58)
[2017-10-22] MEDS: SPIRONOLACTONE 25 MG TABLET PO SCH (08:58)
[2017-10-22] MEDS: MEGESTROL 40 MG TABLET PO SCH ×2 (08:58→21:54)
[2017-10-22] MEDS: INSULIN NPH/REGULAR 70/30 100 UNIT/ML SUBCUT SCH ×2 (09:04→16:41)
[2017-10-22] MEDS: ENOXAPARIN 40 MG/0.4 ML SYRINGE SUBCUT SCH (09:06)
[2017-10-22] MEDS: INSULIN LISPRO 100 UNIT/ML SUBCUT SCH ×4 (09:08→21:54)
[2017-10-22] MEDS: SKIN HEALING OINT (AQUAPHOR) 50 GM TUBE TOP PRN (10:30)
[2017-10-22] MEDS: ZINC OXIDE PASTE 113 GM TUBE TOP SCH ×2 (14:41→21:54)
[2017-10-22] MEDS: ATORVASTATIN 80 MG TABLET PO SCH (21:54)
[2017-10-23] MEDS: LEVOFLOXACIN INJ 750 MG in PREMIX 1 EACH IV SCH (03:12)
[2017-10-23 04:41] LABS: Basophils % 0.2 % (0.0-0.8); Hematocrit 33.2 VOL% (35.7-47.0); Hemoglobin 10.6 GM/DL (12.0-16.0); Immature Granulocytes % 0.7 %; Immature Granulocytes Absolute 0.13 #; Lymphocytes # 1.9 10*3/uL (1.4-4.0); Lymphocytes % 10.6 % (21.3-54.2); Mean Corpuscular HGB Conc 31.9 GM/DL (32-36); Mean Corpuscular Hemoglobin 26 PG (27-34); Mean Corpuscular Volume 82.2 FL (87-102); Mean Platelet Volume 12.3 FL (9.6-12.0); Monocytes # 0.8 10*3/uL (0.11-0.8); Monocytes % 4.6 % (1.7-12.7); Neutrophils # 15.2 10*3/uL (1.4-7.4); Neutrophils % 83.9 % (38.7-73.9); Platelet Count 400 T/CUMM (130-400); Red Blood Count 4.04 MC/CUMM (3.8-5.5); Red Cell Distribution Width 21.5 % (9.3-17.3); White Blood Count 18.1 T/CUMM (4-12)
[2017-10-23] MEDS: methylPREDNISolone SOD SUC 125 MG/2 ML VIAL IV SCH ×2 (04:45→16:59)
[2017-10-23 05:18] LABS: Calcium 8.6 MG/DL (8.5-10.1); Osmolality,Calculated 291.1 MOS/KG (273-304); Potassium 3.8 MMOL/L (3.5-5.1)
[2017-10-23] MEDS: LEVALBUTEROL 1.25 MG/3 ML NEB RESP TX SCH ×3 (07:15→20:00)
[2017-10-23] MEDS: INSULIN LISPRO 100 UNIT/ML SUBCUT SCH ×4 (08:15→21:14)
[2017-10-23] MEDS: CARVEDILOL 6.25 MG TABLET PO SCH ×2 (09:16→21:14)
[2017-10-23] MEDS: CHOLECALCIFEROL 400 UNIT TABLET PO SCH (09:16)
[2017-10-23] MEDS: CLOPIDOGREL 75 MG TABLET PO SCH (09:16)
[2017-10-23] MEDS: ASPIRIN EC 81 MG TABLET PO SCH (09:16)
[2017-10-23] MEDS: ASCORBIC ACID 500 MG TABLET PO SCH (09:16)
[2017-10-23] MEDS: FUROSEMIDE 80 MG TABLET PO SCH (09:16)
[2017-10-23] MEDS: ENOXAPARIN 40 MG/0.4 ML SYRINGE SUBCUT SCH (09:17)
[2017-10-23] MEDS: VITAMIN E 400 UNIT CAPSULE PO SCH (09:17)
[2017-10-23] MEDS: MEGESTROL 40 MG TABLET PO SCH ×2 (09:17→21:13)
[2017-10-23] MEDS: ZINC OXIDE PASTE 113 GM TUBE TOP SCH ×2 (09:18→21:14)
[2017-10-23] MEDS: SPIRONOLACTONE 25 MG TABLET PO SCH (09:22)
[2017-10-23] MEDS: INSULIN NPH/REGULAR 70/30 100 UNIT/ML SUBCUT SCH ×2 (09:26→16:58)
[2017-10-23] MEDS: ATORVASTATIN 80 MG TABLET PO SCH (21:13)
[2017-10-24] MEDS: LEVOFLOXACIN INJ 750 MG in PREMIX 1 EACH IV SCH (03:37)
[2017-10-24] MEDS: methylPREDNISolone SOD SUC 125 MG/2 ML VIAL IV SCH ×2 (05:18→16:31)
[2017-10-24 06:16] LABS: Basophils % 0.1 % (0.0-0.8); Hematocrit 32.2 VOL% (35.7-47.0); Hemoglobin 10.7 GM/DL (12.0-16.0); Immature Granulocytes % 0.7 %; Immature Granulocytes Absolute 0.14 #; Lymphocytes # 2.2 10*3/uL (1.4-4.0); Lymphocytes % 10.6 % (21.3-54.2); Mean Corpuscular HGB Conc 33.2 GM/DL (32-36); Mean Corpuscular Hemoglobin 27 PG (27-34); Mean Corpuscular Volume 80.1 FL (87-102); Mean Platelet Volume 12.1 FL (9.6-12.0); Monocytes # 1.2 10*3/uL (0.11-0.8); Monocytes % 5.6 % (1.7-12.7); Neutrophils # 17.2 10*3/uL (1.4-7.4); Platelet Count 394 T/CUMM (130-400); Red Blood Count 4.02 MC/CUMM (3.8-5.5); Red Cell Distribution Width 21.6 % (9.3-17.3); White Blood Count 20.8 T/CUMM (4-12)
[2017-10-24 06:36] LABS: Acanthocytes Few; Hypochromasia 1+; Lymphocytes 7 % (20-55); Microcytosis 1+; Segmented Neutrophils 91 % (50-85); Total Cells Counted 100
[2017-10-24 06:37] LABS: Ovalocytes Few
[2017-10-24 06:46] LABS: Calcium 8.8 MG/DL (8.5-10.1); Osmolality,Calculated 290.1 MOS/KG (273-304); Potassium 3.4 MMOL/L (3.5-5.1)
[2017-10-24] MEDS: LEVALBUTEROL 1.25 MG/3 ML NEB RESP TX SCH ×3 (07:48→19:23)
[2017-10-24] MEDS: INSULIN LISPRO 100 UNIT/ML SUBCUT SCH ×4 (09:06→21:10)
[2017-10-24] MEDS: VITAMIN E 400 UNIT CAPSULE PO SCH (09:08)
[2017-10-24] MEDS: CARVEDILOL 6.25 MG TABLET PO SCH ×2 (09:08→21:04)
[2017-10-24] MEDS: CHOLECALCIFEROL 400 UNIT TABLET PO SCH (09:08)
[2017-10-24] MEDS: ASCORBIC ACID 500 MG TABLET PO SCH (09:08)
[2017-10-24] MEDS: FUROSEMIDE 80 MG TABLET PO SCH (09:08)
[2017-10-24] MEDS: ASPIRIN EC 81 MG TABLET PO SCH (09:08)
[2017-10-24] MEDS: MEGESTROL 40 MG TABLET PO SCH ×3 (09:08→21:59)
[2017-10-24] MEDS: CLOPIDOGREL 75 MG TABLET PO SCH (09:09)
[2017-10-24] MEDS: SPIRONOLACTONE 25 MG TABLET PO SCH (09:09)
[2017-10-24] MEDS: INSULIN NPH/REGULAR 70/30 100 UNIT/ML SUBCUT SCH ×2 (09:19→16:35)
[2017-10-24] MEDS: ENOXAPARIN 40 MG/0.4 ML SYRINGE SUBCUT SCH (09:46)
[2017-10-24] MEDS: ZINC OXIDE PASTE 113 GM TUBE TOP SCH ×2 (09:46→21:58)
[2017-10-24] MEDS: MEROPENEM 1,000 MG in SYRINGE 1 EACH IV SCH ×2 (12:23→21:10)
[2017-10-24] MEDS: ATORVASTATIN 80 MG TABLET PO SCH (21:04)
[2017-10-25] MEDS: LEVOFLOXACIN INJ 750 MG in PREMIX 1 EACH IV SCH (03:22)
[2017-10-25 04:33] LABS: Basophils % 0.1 % (0.0-0.8); Eosinophils % 0.1 % (0.00-10.9); Hematocrit 33.2 VOL% (35.7-47.0); Hemoglobin 10.7 GM/DL (12.0-16.0); Immature Granulocytes % 0.7 %; Immature Granulocytes Absolute 0.14 #; Lymphocytes # 1.8 10*3/uL (1.4-4.0); Lymphocytes % 9.6 % (21.3-54.2); Mean Corpuscular HGB Conc 32.2 GM/DL (32-36); Mean Corpuscular Hemoglobin 27 PG (27-34); Mean Corpuscular Volume 82.2 FL (87-102); Mean Platelet Volume 13.3 FL (9.6-12.0); Monocytes # 1.1 10*3/uL (0.11-0.8); Monocytes % 5.9 % (1.7-12.7); Neutrophils # 15.7 10*3/uL (1.4-7.4); Neutrophils % 83.6 % (38.7-73.9); Platelet Count 309 T/CUMM (130-400); Red Blood Count 4.04 MC/CUMM (3.8-5.5); Red Cell Distribution Width 21.6 % (9.3-17.3); White Blood Count 18.7 T/CUMM (4-12)
[2017-10-25 04:57] LABS: Elliptocytes Few; Hypochromasia 1+
[2017-10-25 04:58] LABS: Burr Cells Slight; Giant Platelets Few; Microcytosis 1+; Platelet Estimate Adequate
[2017-10-25 05:02] LABS: Calcium 8.6 MG/DL (8.5-10.1); Osmolality,Calculated 289.4 MOS/KG (273-304); Potassium 3.6 MMOL/L (3.5-5.1)
[2017-10-25] MEDS: MEROPENEM 1,000 MG in SYRINGE 1 EACH IV SCH ×3 (05:17→20:49)
[2017-10-25] MEDS: methylPREDNISolone SOD SUC 125 MG/2 ML VIAL IV SCH (06:05)
[2017-10-25] MEDS: LEVALBUTEROL 1.25 MG/3 ML NEB RESP TX SCH ×3 (07:44→19:55)
[2017-10-25] MEDS: INSULIN LISPRO 100 UNIT/ML SUBCUT SCH ×4 (08:39→20:49)
[2017-10-25] MEDS: VITAMIN E 400 UNIT CAPSULE PO SCH (08:52)
[2017-10-25] MEDS: SPIRONOLACTONE 25 MG TABLET PO SCH (08:52)
[2017-10-25] MEDS: ASPIRIN EC 81 MG TABLET PO SCH (08:52)
[2017-10-25] MEDS: ASCORBIC ACID 500 MG TABLET PO SCH (08:52)
[2017-10-25] MEDS: CARVEDILOL 6.25 MG TABLET PO SCH ×2 (08:52→20:49)
[2017-10-25] MEDS: CHOLECALCIFEROL 400 UNIT TABLET PO SCH (08:52)
[2017-10-25] MEDS: FUROSEMIDE 80 MG TABLET PO SCH (08:52)
[2017-10-25] MEDS: CLOPIDOGREL 75 MG TABLET PO SCH (08:52)
[2017-10-25] MEDS: ENOXAPARIN 40 MG/0.4 ML SYRINGE SUBCUT SCH (09:02)
[2017-10-25] MEDS: INSULIN NPH/REGULAR 70/30 100 UNIT/ML SUBCUT SCH ×2 (09:04→16:45)
[2017-10-25] MEDS: ZINC OXIDE PASTE 113 GM TUBE TOP SCH ×2 (09:07→20:55)
[2017-10-25] MEDS: MEGESTROL 40 MG TABLET PO SCH ×2 (09:07→20:49)
[2017-10-25] MEDS: methylPREDNISolone SOD SUC 40 MG/1 ML VIAL IV SCH (17:47)
[2017-10-25] MEDS: ATORVASTATIN 80 MG TABLET PO SCH (20:49)
[2017-10-26] MEDS: MEROPENEM 1,000 MG in SYRINGE 1 EACH IV SCH ×3 (04:49→20:44)
[2017-10-26] MEDS: methylPREDNISolone SOD SUC 40 MG/1 ML VIAL IV SCH ×2 (05:00→17:19)
[2017-10-26 05:07] LABS: Basophils % 0.1 % (0.0-0.8); Hematocrit 32.9 VOL% (35.7-47.0); Hemoglobin 11.2 GM/DL (12.0-16.0); Immature Granulocytes % 0.7 %; Immature Granulocytes Absolute 0.13 #; Lymphocytes # 1.9 10*3/uL (1.4-4.0); Lymphocytes % 9.5 % (21.3-54.2); Mean Corpuscular Hemoglobin 27 PG (27-34); Mean Corpuscular Volume 79.7 FL (87-102); Mean Platelet Volume 12.4 FL (9.6-12.0); Monocytes # 1.2 10*3/uL (0.11-0.8); Monocytes % 6.1 % (1.7-12.7); Neutrophils # 16.5 10*3/uL (1.4-7.4); Neutrophils % 83.6 % (38.7-73.9); Platelet Count 358 T/CUMM (130-400); Red Blood Count 4.13 MC/CUMM (3.8-5.5); Red Cell Distribution Width 21.8 % (9.3-17.3); White Blood Count 19.7 T/CUMM (4-12)
[2017-10-26 05:48] LABS: Calcium 8.6 MG/DL (8.5-10.1); Potassium 3.4 MMOL/L (3.5-5.1)
[2017-10-26] MEDS: LEVALBUTEROL 1.25 MG/3 ML NEB RESP TX SCH ×3 (07:49→19:12)
[2017-10-26] MEDS: INSULIN LISPRO 100 UNIT/ML SUBCUT SCH ×4 (08:17→20:44)
[2017-10-26] MEDS: ASPIRIN EC 81 MG TABLET PO SCH (08:18)
[2017-10-26] MEDS: CHOLECALCIFEROL 400 UNIT TABLET PO SCH (08:18)
[2017-10-26] MEDS: CARVEDILOL 6.25 MG TABLET PO SCH ×2 (08:18→20:45)
[2017-10-26] MEDS: VITAMIN E 400 UNIT CAPSULE PO SCH (08:18)
[2017-10-26] MEDS: ASCORBIC ACID 500 MG TABLET PO SCH (08:18)
[2017-10-26] MEDS: CLOPIDOGREL 75 MG TABLET PO SCH (08:18)
[2017-10-26] MEDS: SPIRONOLACTONE 25 MG TABLET PO SCH (08:18)
[2017-10-26] MEDS: FUROSEMIDE 80 MG TABLET PO SCH (08:19)
[2017-10-26] MEDS: ZINC OXIDE PASTE 113 GM TUBE TOP SCH ×2 (08:19→20:45)
[2017-10-26] MEDS: MEGESTROL 40 MG TABLET PO SCH ×2 (08:19→20:45)
[2017-10-26] MEDS: INSULIN NPH/REGULAR 70/30 100 UNIT/ML SUBCUT SCH ×2 (08:20→17:18)
[2017-10-26] MEDS: ENOXAPARIN 40 MG/0.4 ML SYRINGE SUBCUT SCH (08:20)
[2017-10-26] MEDS: ATORVASTATIN 80 MG TABLET PO SCH (20:44)
[2017-10-27] MEDS: MEROPENEM 1,000 MG in SYRINGE 1 EACH IV SCH ×3 (04:59→20:28)
[2017-10-27] MEDS: methylPREDNISolone SOD SUC 40 MG/1 ML VIAL IV SCH ×2 (05:00→18:37)
[2017-10-27 05:12] LABS: Basophils % 0.1 % (0.0-0.8); Hematocrit 34.1 VOL% (35.7-47.0); Hemoglobin 11.5 GM/DL (12.0-16.0); Immature Granulocytes % 0.7 %; Immature Granulocytes Absolute 0.12 #; Lymphocytes # 1.8 10*3/uL (1.4-4.0); Lymphocytes % 9.8 % (21.3-54.2); Mean Corpuscular HGB Conc 33.7 GM/DL (32-36); Mean Corpuscular Hemoglobin 27 PG (27-34); Mean Corpuscular Volume 79.9 FL (87-102); Monocytes # 0.8 10*3/uL (0.11-0.8); Monocytes % 4.7 % (1.7-12.7); Neutrophils # 15.3 10*3/uL (1.4-7.4); Neutrophils % 84.7 % (38.7-73.9); Platelet Count 358 T/CUMM (130-400); Red Blood Count 4.27 MC/CUMM (3.8-5.5); Red Cell Distribution Width 22.3 % (9.3-17.3)
[2017-10-27 05:34] LABS: Calcium 8.6 MG/DL (8.5-10.1); Potassium 4.2 MMOL/L (3.5-5.1)
[2017-10-27 06:50] LABS: Burr Cells 2+; Hypochromasia Slight
[2017-10-27] MEDS: LEVALBUTEROL 1.25 MG/3 ML NEB RESP TX SCH ×3 (07:06→19:28)
[2017-10-27] MEDS: VITAMIN E 400 UNIT CAPSULE PO SCH (08:47)
[2017-10-27] MEDS: SPIRONOLACTONE 25 MG TABLET PO SCH (08:47)
[2017-10-27] MEDS: ASPIRIN EC 81 MG TABLET PO SCH (08:48)
[2017-10-27] MEDS: CLOPIDOGREL 75 MG TABLET PO SCH (08:48)
[2017-10-27] MEDS: ENOXAPARIN 40 MG/0.4 ML SYRINGE SUBCUT SCH (08:48)
[2017-10-27] MEDS: CHOLECALCIFEROL 400 UNIT TABLET PO SCH (08:48)
[2017-10-27] MEDS: INSULIN NPH/REGULAR 70/30 100 UNIT/ML SUBCUT SCH ×2 (08:48→16:59)
[2017-10-27] MEDS: FUROSEMIDE 80 MG TABLET PO SCH (08:48)
[2017-10-27] MEDS: ASCORBIC ACID 500 MG TABLET PO SCH (08:48)
[2017-10-27] MEDS: CARVEDILOL 6.25 MG TABLET PO SCH ×2 (08:48→20:28)
[2017-10-27] MEDS: MEGESTROL 40 MG TABLET PO SCH ×2 (08:48→20:29)
[2017-10-27] MEDS: INSULIN LISPRO 100 UNIT/ML SUBCUT SCH ×4 (08:49→20:28)
[2017-10-27] MEDS: ZINC OXIDE PASTE 113 GM TUBE TOP SCH ×2 (08:50→20:29)
[2017-10-27] MEDS: ATORVASTATIN 80 MG TABLET PO SCH (20:28)
[2017-10-28] MEDS: methylPREDNISolone SOD SUC 40 MG/1 ML VIAL IV SCH ×2 (05:00→18:15)
[2017-10-28] MEDS: MEROPENEM 1,000 MG in SYRINGE 1 EACH IV SCH ×3 (05:00→21:03)
[2017-10-28 06:14] LABS: Basophils % 0.1 % (0.0-0.8); Eosinophils % 0.1 % (0.00-10.9); Hemoglobin 11.7 GM/DL (12.0-16.0); Immature Granulocytes % 0.6 %; Immature Granulocytes Absolute 0.13 #; Lymphocytes # 2.5 10*3/uL (1.4-4.0); Lymphocytes % 11.7 % (21.3-54.2); Mean Corpuscular HGB Conc 32.5 GM/DL (32-36); Mean Corpuscular Hemoglobin 27 PG (27-34); Mean Corpuscular Volume 81.4 FL (87-102); Mean Platelet Volume 13.1 FL (9.6-12.0); Monocytes # 1.1 10*3/uL (0.11-0.8); Monocytes % 4.9 % (1.7-12.7); Neutrophils # 17.8 10*3/uL (1.4-7.4); Neutrophils % 82.6 % (38.7-73.9); Platelet Count 360 T/CUMM (130-400); Red Blood Count 4.42 MC/CUMM (3.8-5.5); Red Cell Distribution Width 22.2 % (9.3-17.3); White Blood Count 21.5 T/CUMM (4-12)
[2017-10-28] MEDS: LEVALBUTEROL 1.25 MG/3 ML NEB RESP TX SCH ×3 (07:23→19:25)
[2017-10-28 08:06] LABS: Lymphocytes 9 % (20-55); Segmented Neutrophils 87 % (50-85); Total Cells Counted 100
[2017-10-28 08:07] LABS: Elliptocytes Few; Hypochromasia 2+; Macrocytosis 1+; Platelet Estimate Adequate; Polychromasia Slight
[2017-10-28] MEDS: INSULIN LISPRO 100 UNIT/ML SUBCUT SCH ×4 (08:36→21:04)
[2017-10-28] MEDS: INSULIN NPH/REGULAR 70/30 100 UNIT/ML SUBCUT SCH ×2 (09:03→18:02)
[2017-10-28] MEDS: ENOXAPARIN 40 MG/0.4 ML SYRINGE SUBCUT SCH (09:03)
[2017-10-28] MEDS: ASCORBIC ACID 500 MG TABLET PO SCH (09:04)
[2017-10-28] MEDS: ZINC OXIDE PASTE 113 GM TUBE TOP SCH ×2 (09:04→21:04)
[2017-10-28] MEDS: VITAMIN E 400 UNIT CAPSULE PO SCH (09:04)
[2017-10-28] MEDS: CLOPIDOGREL 75 MG TABLET PO SCH (09:04)
[2017-10-28] MEDS: MEGESTROL 40 MG TABLET PO SCH ×2 (09:04→21:04)
[2017-10-28] MEDS: SPIRONOLACTONE 25 MG TABLET PO SCH (09:04)
[2017-10-28] MEDS: CHOLECALCIFEROL 400 UNIT TABLET PO SCH (09:04)
[2017-10-28] MEDS: ASPIRIN EC 81 MG TABLET PO SCH (09:04)
[2017-10-28] MEDS: CARVEDILOL 6.25 MG TABLET PO SCH ×2 (09:04→21:04)
[2017-10-28] MEDS: FUROSEMIDE 80 MG TABLET PO SCH (09:04)
[2017-10-28] MEDS: ATORVASTATIN 80 MG TABLET PO SCH (21:04)
[2017-10-29] MEDS: MEROPENEM 1,000 MG in SYRINGE 1 EACH IV SCH ×3 (04:59→21:15)
[2017-10-29] MEDS: methylPREDNISolone SOD SUC 40 MG/1 ML VIAL IV SCH ×2 (04:59→18:17)
[2017-10-29] MEDS: LEVALBUTEROL 1.25 MG/3 ML NEB RESP TX SCH ×3 (07:26→19:10)
[2017-10-29] MEDS: INSULIN LISPRO 100 UNIT/ML SUBCUT SCH ×3 (10:11→21:14)
[2017-10-29] MEDS: INSULIN NPH/REGULAR 70/30 100 UNIT/ML SUBCUT SCH ×2 (10:12→18:17)
[2017-10-29] MEDS: CHOLECALCIFEROL 400 UNIT TABLET PO SCH (10:12)
[2017-10-29] MEDS: VITAMIN E 400 UNIT CAPSULE PO SCH (10:12)
[2017-10-29] MEDS: ENOXAPARIN 40 MG/0.4 ML SYRINGE SUBCUT SCH (10:12)
[2017-10-29] MEDS: SPIRONOLACTONE 25 MG TABLET PO SCH (10:13)
[2017-10-29] MEDS: CLOPIDOGREL 75 MG TABLET PO SCH (10:13)
[2017-10-29] MEDS: MEGESTROL 40 MG TABLET PO SCH ×2 (10:13→21:15)
[2017-10-29] MEDS: CARVEDILOL 6.25 MG TABLET PO SCH ×2 (10:13→21:14)
[2017-10-29] MEDS: FUROSEMIDE 80 MG TABLET PO SCH (10:13)
[2017-10-29] MEDS: ASCORBIC ACID 500 MG TABLET PO SCH (10:13)
[2017-10-29] MEDS: ZINC OXIDE PASTE 113 GM TUBE TOP SCH ×2 (10:14→21:15)
[2017-10-29] MEDS: ASPIRIN EC 81 MG TABLET PO SCH (10:14)
[2017-10-29] MEDS: ATORVASTATIN 80 MG TABLET PO SCH (21:14)
[2017-10-30] MEDS: MEROPENEM 1,000 MG in SYRINGE 1 EACH IV SCH ×3 (05:15→21:36)
[2017-10-30] MEDS: methylPREDNISolone SOD SUC 40 MG/1 ML VIAL IV SCH (06:03)
[2017-10-30] MEDS: LEVALBUTEROL 1.25 MG/3 ML NEB RESP TX SCH ×3 (06:51→19:05)
[2017-10-30 08:34] LABS: Calcium 8.7 MG/DL (8.5-10.1); Osmolality,Calculated 290.3 MOS/KG (273-304); Potassium 3.7 MMOL/L (3.5-5.1)
[2017-10-30] MEDS: INSULIN NPH/REGULAR 70/30 100 UNIT/ML SUBCUT SCH ×2 (09:51→18:28)
[2017-10-30] MEDS: ENOXAPARIN 40 MG/0.4 ML SYRINGE SUBCUT SCH (09:51)
[2017-10-30] MEDS: VITAMIN E 400 UNIT CAPSULE PO SCH (09:52)
[2017-10-30] MEDS: ZINC OXIDE PASTE 113 GM TUBE TOP SCH ×2 (09:52→21:37)
[2017-10-30] MEDS: SPIRONOLACTONE 25 MG TABLET PO SCH (09:52)
[2017-10-30] MEDS: CHOLECALCIFEROL 400 UNIT TABLET PO SCH (09:52)
[2017-10-30] MEDS: ASCORBIC ACID 500 MG TABLET PO SCH (09:52)
[2017-10-30] MEDS: FUROSEMIDE 80 MG TABLET PO SCH (09:52)
[2017-10-30] MEDS: CARVEDILOL 6.25 MG TABLET PO SCH (09:52)
[2017-10-30] MEDS: predniSONE 20 MG TABLET PO SCH (09:52)
[2017-10-30] MEDS: ASPIRIN EC 81 MG TABLET PO SCH (09:52)
[2017-10-30] MEDS: CLOPIDOGREL 75 MG TABLET PO SCH (09:52)
[2017-10-30] MEDS: MEGESTROL 40 MG TABLET PO SCH ×2 (09:52→21:37)
[2017-10-30] MEDS: INSULIN LISPRO 100 UNIT/ML SUBCUT SCH ×4 (10:22→21:37)
[2017-10-30] MEDS ORDERED: POLYETHYLENE GLYCOL POWDER 17 GM PACK PO PRN (10:59)
[2017-10-30 16:52] LABS: Troponin I Only 0.016 NG/ML (0.00-0.045)
[2017-10-30] MEDS: ATORVASTATIN 80 MG TABLET PO SCH (21:35)
[2017-10-30] MEDS: CARVEDILOL 12.5 MG TABLET PO SCH (21:36)
[2017-10-31] MEDS: MEROPENEM 1,000 MG in SYRINGE 1 EACH IV SCH (06:58)
[2017-10-31] MEDS: LEVALBUTEROL 1.25 MG/3 ML NEB RESP TX SCH ×3 (07:00→19:39)
[2017-10-31] MEDS: INSULIN LISPRO 100 UNIT/ML SUBCUT SCH ×4 (08:45→21:07)
[2017-10-31] MEDS: INSULIN NPH/REGULAR 70/30 100 UNIT/ML SUBCUT SCH ×2 (08:46→16:09)
[2017-10-31] MEDS: CEFDINIR 300 MG CAPSULE PO SCH ×2 (08:53→21:06)
[2017-10-31] MEDS: CHOLECALCIFEROL 400 UNIT TABLET PO SCH (08:53)
[2017-10-31] MEDS: CLOPIDOGREL 75 MG TABLET PO SCH (08:53)
[2017-10-31] MEDS: VITAMIN E 400 UNIT CAPSULE PO SCH (08:54)
[2017-10-31] MEDS: FUROSEMIDE 80 MG TABLET PO SCH (08:54)
[2017-10-31] MEDS: predniSONE 20 MG TABLET PO SCH (08:54)
[2017-10-31] MEDS: ASPIRIN EC 81 MG TABLET PO SCH (08:54)
[2017-10-31] MEDS: ASCORBIC ACID 500 MG TABLET PO SCH (08:55)
[2017-10-31] MEDS: SPIRONOLACTONE 25 MG TABLET PO SCH (08:55)
[2017-10-31] MEDS: ENOXAPARIN 40 MG/0.4 ML SYRINGE SUBCUT SCH (08:55)
[2017-10-31] MEDS: CARVEDILOL 12.5 MG TABLET PO SCH ×2 (08:55→21:06)
[2017-10-31] MEDS: MEGESTROL 40 MG TABLET PO SCH ×2 (08:57→21:06)
[2017-10-31] MEDS: ZINC OXIDE PASTE 113 GM TUBE TOP SCH ×2 (08:57→21:06)
[2017-10-31] MEDS: ATORVASTATIN 80 MG TABLET PO SCH (21:06)
[2017-11-01] MEDS: LEVALBUTEROL 1.25 MG/3 ML NEB RESP TX SCH ×3 (07:47→19:17)
[2017-11-01] MEDS: INSULIN LISPRO 100 UNIT/ML SUBCUT SCH ×4 (09:03→22:28)
[2017-11-01] MEDS: INSULIN NPH/REGULAR 70/30 100 UNIT/ML SUBCUT SCH ×2 (09:03→17:29)
[2017-11-01] MEDS: ENOXAPARIN 40 MG/0.4 ML SYRINGE SUBCUT SCH (09:04)
[2017-11-01] MEDS: CEFDINIR 300 MG CAPSULE PO SCH ×2 (09:04→20:23)
[2017-11-01] MEDS: predniSONE 20 MG TABLET PO SCH (09:04)
[2017-11-01] MEDS: VITAMIN E 400 UNIT CAPSULE PO SCH (09:04)
[2017-11-01] MEDS: CHOLECALCIFEROL 400 UNIT TABLET PO SCH (09:04)
[2017-11-01] MEDS: CLOPIDOGREL 75 MG TABLET PO SCH (09:04)
[2017-11-01] MEDS: ZINC OXIDE PASTE 113 GM TUBE TOP SCH ×2 (09:05→20:23)
[2017-11-01] MEDS: ASPIRIN EC 81 MG TABLET PO SCH (09:05)
[2017-11-01] MEDS: ASCORBIC ACID 500 MG TABLET PO SCH (09:05)
[2017-11-01] MEDS: SPIRONOLACTONE 25 MG TABLET PO SCH (09:05)
[2017-11-01] MEDS: FUROSEMIDE 80 MG TABLET PO SCH (09:05)
[2017-11-01] MEDS: CARVEDILOL 12.5 MG TABLET PO SCH ×2 (09:05→20:23)
[2017-11-01] MEDS: MEGESTROL 40 MG TABLET PO SCH ×2 (09:17→20:23)
[2017-11-01] MEDS: ATORVASTATIN 80 MG TABLET PO SCH (20:23)
[2017-11-02] MEDS: LEVALBUTEROL 1.25 MG/3 ML NEB RESP TX SCH ×2 (07:16→14:08)
[2017-11-02] MEDS: INSULIN NPH/REGULAR 70/30 100 UNIT/ML SUBCUT SCH ×2 (08:36→17:44)
[2017-11-02] MEDS: INSULIN LISPRO 100 UNIT/ML SUBCUT SCH ×3 (08:36→18:26)
[2017-11-02] MEDS: ASCORBIC ACID 500 MG TABLET PO SCH (09:32)
[2017-11-02] MEDS: predniSONE 20 MG TABLET PO SCH (09:32)
[2017-11-02] MEDS: VITAMIN E 400 UNIT CAPSULE PO SCH (09:32)
[2017-11-02] MEDS: ENOXAPARIN 40 MG/0.4 ML SYRINGE SUBCUT SCH (09:32)
[2017-11-02] MEDS: CEFDINIR 300 MG CAPSULE PO SCH (09:32)
[2017-11-02] MEDS: CHOLECALCIFEROL 400 UNIT TABLET PO SCH (09:32)
[2017-11-02] MEDS: FUROSEMIDE 80 MG TABLET PO SCH (09:33)
[2017-11-02] MEDS: MEGESTROL 40 MG TABLET PO SCH (09:33)
[2017-11-02] MEDS: CLOPIDOGREL 75 MG TABLET PO SCH (09:33)
[2017-11-02] MEDS: CARVEDILOL 12.5 MG TABLET PO SCH (09:33)
[2017-11-02] MEDS: ASPIRIN EC 81 MG TABLET PO SCH (09:33)
[2017-11-02] MEDS: ZINC OXIDE PASTE 113 GM TUBE TOP SCH (09:33)
[2017-11-02] MEDS: SPIRONOLACTONE 25 MG TABLET PO SCH (09:33)
[2017-11-02 18:13] VITALS: BP 105/55
== END 2017-11-02 18:45 | disposition swing bed (61) | DRG 191 ==
LOC: EDUNIT# → EDBD → N.ED 23:23 → SUATTDRO 10-21 02:32 → N.EDINP 10-21 02:32 → N.TELES 10-21 04:08
PROVIDERS: ADMIT Internal Medicine; ATTEND Internal Medicine Cardiovascular Disease

== ENCOUNTER 2018-02-26 10:52 | Inpatient (IN) ==
[2018-02-26 11:49] LABS: Apearance,Urine CLOUDY (Clear); Bacteria,Urine Many /HPF (Few); Bilirubin,Urine Negative (Negative); Blood, Urine Small mg/dL (Negative); Glucose,Urine (UA) Negative (Negative); Ketones,Urine Negative (Negative); Mucus,Urine Many /LPF (Occasional); Nitrite,Urine Negative (Negative); Protein,Urine 30 MG/DL; RBC,Urine 58 /HPF (0-4); Squamous Epithelial Cell,Urine Few /HPF (0-10); Urine Color Yellow (Yellow); WBC,Urine 671 /HPF (0-6)
[2018-02-26] MEDS ORDERED: LEVOFLOXACIN INJ 500 MG in PREMIX 1 EACH IV STA (12:11)
[2018-02-26 13:01] LABS: Albumin 1.6 G/DL (3.4-5.0); Bilirubin,Total 0.5 MG/DL (0.2-1.0); Calcium 8.7 MG/DL (8.5-10.1); Potassium 4.8 MMOL/L (3.5-5.1); Total Protein 7.6 G/DL (6.4-8.3)
[2018-02-26] MEDS ORDERED: FLUCONAZOLE INJ 200 MG in PREMIX 1 EACH IV SCH (13:30)
[2018-02-26 13:48] LABS: Basophils # 0.2 10*3/uL (0.0-0.2); Basophils % 1.4 % (0.0-0.8); Eosinophils # 1.1 10*3/uL (0.0-0.87); Eosinophils % 7.5 % (0.00-10.9); Hemoglobin 11.2 GM/DL (12.0-16.0); Immature Granulocytes % 0.4 %; Immature Granulocytes Absolute 0.06 #; Lymphocytes # 2.7 10*3/uL (1.4-4.0); Lymphocytes % 18.1 % (21.3-54.2); Mean Corpuscular HGB Conc 31.1 GM/DL (32-36); Mean Corpuscular Hemoglobin 23 PG (27-34); Mean Platelet Volume 11.3 FL (9.6-12.0); Neutrophils # 9.7 10*3/uL (1.4-7.4); Neutrophils % 65.6 % (38.7-73.9); Platelet Count 517 T/CUMM (130-400); Red Blood Count 4.93 MC/CUMM (3.8-5.5); Red Cell Distribution Width 20.1 % (9.3-17.3); White Blood Count 14.8 T/CUMM (4-12)
[2018-02-26] MEDS ORDERED: PANTOPRAZOLE 40 MG VIAL IV ONE (15:05)
[2018-02-26] MEDS ORDERED: METOCLOPRAMIDE 10 MG/2 ML VIAL ONE (15:05)
[2018-02-26] MEDS ORDERED: ONDANSETRON 4 MG/2 ML VIAL ONE (15:05)
[2018-02-26] MEDS ORDERED: methylPREDNISolone SOD SUC 125 MG/2 ML VIAL ONE (15:05)
[2018-02-26] MEDS ORDERED: ACETAMINOPHEN 325 MG TABLET PO PRN (15:24)
[2018-02-26] MEDS ORDERED: DEXTROSE 50% 25 GM/50 ML VIAL IV PRN (15:24)
[2018-02-26] MEDS ORDERED: ONDANSETRON 4 MG/2 ML VIAL IV PRN (15:24)
[2018-02-26] MEDS ORDERED: GLUCAGON 1 MG VIAL IM PRN (15:24)
[2018-02-26] MEDS: SODIUM CHLORIDE 0.9% 1,000 ML IV SCH (15:52)
[2018-02-26] MEDS: INSULIN LISPRO 100 UNIT/ML SUBCUT SCH ×2 (17:37→21:21)
[2018-02-26] MEDS: ENOXAPARIN 40 MG/0.4 ML SYRINGE SUBCUT SCH (18:37)
[2018-02-26 20:28] LABS: Lactic Acid 2.5 MMOL/L (0.4-2.0)
[2018-02-27] MEDS: SODIUM CHLORIDE 0.9% 1,000 ML IV SCH (02:53)
[2018-02-27 07:03] LABS: Basophils # 0.2 10*3/uL (0.0-0.2); Basophils % 1.5 % (0.0-0.8); Eosinophils # 1.2 10*3/uL (0.0-0.87); Eosinophils % 10.1 % (0.00-10.9); Hematocrit 31.6 VOL% (35.7-47.0); Hemoglobin 10.1 GM/DL (12.0-16.0); Immature Granulocytes % 0.5 %; Immature Granulocytes Absolute 0.06 #; Lymphocytes % 26.2 % (21.3-54.2); Mean Corpuscular Hemoglobin 23 PG (27-34); Mean Corpuscular Volume 70.4 FL (87-102); Monocytes # 0.9 10*3/uL (0.11-0.8); Monocytes % 7.9 % (1.7-12.7); Neutrophils # 6.2 10*3/uL (1.4-7.4); Neutrophils % 53.8 % (38.7-73.9); Platelet Count 528 T/CUMM (130-400); Red Blood Count 4.49 MC/CUMM (3.8-5.5); Red Cell Distribution Width 19.6 % (9.3-17.3); White Blood Count 11.6 T/CUMM (4-12)
[2018-02-27 07:32] LABS: Calcium 8.4 MG/DL (8.5-10.1); Osmolality,Calculated 284.4 MOS/KG (273-304); Potassium 3.9 MMOL/L (3.5-5.1)
[2018-02-27] MEDS ORDERED: CALCIUM CARBONATE CHEW 500 MG TABLET PO PRN (08:03)
[2018-02-27] MEDS ORDERED: SIMETHICONE CHEW 125 MG TABLET PO PRN (08:03)
[2018-02-27] MEDS ORDERED: DOCUSATE SODIUM 100 MG CAPSULE PO PRN (08:03)
[2018-02-27] MEDS ORDERED: LEVALBUTEROL HCL 1.25 MG IH PRN (08:03)
[2018-02-27] MEDS ORDERED: POLYETHYLENE GLYCOL POWDER 17 GM PACK PO PRN (08:03)
[2018-02-27] MEDS ORDERED: NON-FORMULARY MEDICATION (Omeprazole [Omeprazole] 20 MG) PO SCH (09:00)
[2018-02-27] MEDS ORDERED: VITAMIN E 400 UNIT PO SCH (09:00)
[2018-02-27] MEDS ORDERED: Umeclidinium Brm/Vilanterol Tr [Anoro Ellipta] 1 PUFF INH SCH (09:00)
[2018-02-27] MEDS: CARVEDILOL 12.5 MG TABLET PO SCH ×2 (09:39→22:20)
[2018-02-27] MEDS: FUROSEMIDE 80 MG TABLET PO SCH (09:40)
[2018-02-27] MEDS: PANTOPRAZOLE 40 MG TABLET PO SCH (09:40)
[2018-02-27] MEDS: ITRACONAZOLE 100 MG CAPSULE PO SCH (09:40)
[2018-02-27] MEDS: SPIRONOLACTONE 25 MG TABLET PO SCH (09:40)
[2018-02-27] MEDS: INSULIN LISPRO 100 UNIT/ML SUBCUT SCH ×4 (09:40→22:19)
[2018-02-27] MEDS: CLOPIDOGREL 75 MG TABLET PO SCH (09:40)
[2018-02-27] MEDS: ASPIRIN EC 81 MG TABLET PO SCH (09:40)
[2018-02-27] MEDS: CHOLECALCIFEROL 400 UNIT TABLET PO SCH (09:41)
[2018-02-27] MEDS: ASCORBIC ACID 500 MG TABLET PO SCH (09:41)
[2018-02-27] MEDS: DICLOFENAC 1% GEL 100 GM TUBE TOP SCH ×2 (10:59→22:21)
[2018-02-27] MEDS: ENOXAPARIN 40 MG/0.4 ML SYRINGE SUBCUT SCH (15:16)
[2018-02-27] MEDS: NYSTATIN POWDER 15 GM BOTTLE TOP SCH ×2 (15:17→22:19)
[2018-02-27] MEDS: LEVOFLOXACIN INJ 500 MG in PREMIX 1 EACH IV SCH (15:17)
[2018-02-27] MEDS: DESITIN 4OZ/NYSTATIN 15 GRAM MIXTURE PASTE TOP SCH ×2 (15:18→22:19)
[2018-02-27] MEDS: INSULIN NPH/REGULAR 70/30 100 UNIT/ML SUBCUT SCH (17:54)
[2018-02-27] MEDS: ACETAMINOPHEN 500 MG TABLET PO SCH (22:20)
[2018-02-28] MEDS: INSULIN LISPRO 100 UNIT/ML SUBCUT SCH ×4 (07:27→21:31)
[2018-02-28] MEDS: ITRACONAZOLE 100 MG CAPSULE PO SCH (08:49)
[2018-02-28] MEDS: DESITIN 4OZ/NYSTATIN 15 GRAM MIXTURE PASTE TOP SCH ×2 (08:50→21:31)
[2018-02-28] MEDS: PANTOPRAZOLE 40 MG TABLET PO SCH (08:50)
[2018-02-28] MEDS: ASCORBIC ACID 500 MG TABLET PO SCH (08:50)
[2018-02-28] MEDS: CHOLECALCIFEROL 400 UNIT TABLET PO SCH (08:50)
[2018-02-28] MEDS: SPIRONOLACTONE 25 MG TABLET PO SCH (08:50)
[2018-02-28] MEDS: FUROSEMIDE 80 MG TABLET PO SCH (08:50)
[2018-02-28] MEDS: ASPIRIN EC 81 MG TABLET PO SCH (08:50)
[2018-02-28] MEDS: CLOPIDOGREL 75 MG TABLET PO SCH (08:50)
[2018-02-28] MEDS: CARVEDILOL 12.5 MG TABLET PO SCH ×2 (08:50→21:30)
[2018-02-28] MEDS: NYSTATIN POWDER 15 GM BOTTLE TOP SCH ×2 (08:50→21:31)
[2018-02-28] MEDS: DICLOFENAC 1% GEL 100 GM TUBE TOP SCH ×2 (08:51→21:30)
[2018-02-28] MEDS: INSULIN NPH/REGULAR 70/30 100 UNIT/ML SUBCUT SCH ×2 (09:59→17:27)
[2018-02-28] MEDS: LEVOFLOXACIN INJ 500 MG in PREMIX 1 EACH IV SCH (14:01)
[2018-02-28] MEDS ORDERED: TUBERCULIN SKIN TEST 0.1 ML SYRINGE INTRADERM ONE (15:50)
[2018-02-28] MEDS: ENOXAPARIN 40 MG/0.4 ML SYRINGE SUBCUT SCH (16:29)
[2018-02-28] MEDS: ACETAMINOPHEN 500 MG TABLET PO SCH (21:30)
[2018-03-01] MEDS: INSULIN NPH/REGULAR 70/30 100 UNIT/ML SUBCUT SCH ×2 (09:17→16:25)
[2018-03-01] MEDS: INSULIN LISPRO 100 UNIT/ML SUBCUT SCH ×4 (09:17→20:50)
[2018-03-01] MEDS: CLOPIDOGREL 75 MG TABLET PO SCH (09:19)
[2018-03-01] MEDS: ITRACONAZOLE 100 MG CAPSULE PO SCH (09:19)
[2018-03-01] MEDS: FUROSEMIDE 80 MG TABLET PO SCH (09:19)
[2018-03-01] MEDS: CHOLECALCIFEROL 400 UNIT TABLET PO SCH (09:19)
[2018-03-01] MEDS: SPIRONOLACTONE 25 MG TABLET PO SCH (09:19)
[2018-03-01] MEDS: ASCORBIC ACID 500 MG TABLET PO SCH (09:19)
[2018-03-01] MEDS: ASPIRIN EC 81 MG TABLET PO SCH (09:19)
[2018-03-01] MEDS: PANTOPRAZOLE 40 MG TABLET PO SCH (09:19)
[2018-03-01] MEDS: CARVEDILOL 12.5 MG TABLET PO SCH ×2 (09:20→20:49)
[2018-03-01] MEDS: LEVOFLOXACIN INJ 750 MG in PREMIX 1 EACH IV SCH (09:43)
[2018-03-01] MEDS: DESITIN 4OZ/NYSTATIN 15 GRAM MIXTURE PASTE TOP SCH ×2 (09:49→20:49)
[2018-03-01] MEDS: NYSTATIN POWDER 15 GM BOTTLE TOP SCH ×2 (09:49→20:49)
[2018-03-01] MEDS: SODIUM CHLORIDE 0.9% IV SCH (11:40)
[2018-03-01] MEDS: TOBRAMYCIN IV SCH (11:40)
[2018-03-01] MEDS: DICLOFENAC 1% GEL 100 GM TUBE TOP SCH ×2 (11:46→20:53)
[2018-03-01] MEDS: ENOXAPARIN 40 MG/0.4 ML SYRINGE SUBCUT SCH (15:10)
[2018-03-01] MEDS: ACETAMINOPHEN 500 MG TABLET PO SCH (20:49)
[2018-03-02 06:57] LABS: Basophils # 0.2 10*3/uL (0.0-0.2); Basophils % 1.5 % (0.0-0.8); Eosinophils # 1.7 10*3/uL (0.0-0.87); Eosinophils % 14.3 % (0.00-10.9); Hematocrit 31.6 VOL% (35.7-47.0); Hemoglobin 9.9 GM/DL (12.0-16.0); Immature Granulocytes % 0.3 %; Immature Granulocytes Absolute 0.04 #; Lymphocytes # 2.8 10*3/uL (1.4-4.0); Lymphocytes % 23.7 % (21.3-54.2); Mean Corpuscular HGB Conc 31.3 GM/DL (32-36); Mean Corpuscular Hemoglobin 22 PG (27-34); Mean Corpuscular Volume 71.3 FL (87-102); Mean Platelet Volume 11.3 FL (9.6-12.0); Monocytes # 0.8 10*3/uL (0.11-0.8); Monocytes % 7.1 % (1.7-12.7); Neutrophils # 6.2 10*3/uL (1.4-7.4); Neutrophils % 53.1 % (38.7-73.9); Platelet Count 470 T/CUMM (130-400); Red Blood Count 4.43 MC/CUMM (3.8-5.5); Red Cell Distribution Width 20.1 % (9.3-17.3); White Blood Count 11.8 T/CUMM (4-12)
[2018-03-02 07:31] LABS: Band Neutrophils 1 % (0-10); Eosinophils 11 % (0-10); Lymphocytes 19 % (20-55); Platelet Estimate Normal; Segmented Neutrophils 66 % (50-85); Total Cells Counted 100
[2018-03-02 07:32] LABS: Anisocytosis 2+; Hypochromasia Slight; Poikilocytosis 1+
[2018-03-02 07:34] LABS: Calcium 8.6 MG/DL (8.5-10.1); Osmolality,Calculated 282.4 MOS/KG (273-304); Potassium 3.6 MMOL/L (3.5-5.1)
[2018-03-02] MEDS: INSULIN NPH/REGULAR 70/30 100 UNIT/ML SUBCUT SCH ×2 (08:33→17:35)
[2018-03-02] MEDS: INSULIN LISPRO 100 UNIT/ML SUBCUT SCH ×4 (08:33→20:43)
[2018-03-02] MEDS: SPIRONOLACTONE 25 MG TABLET PO SCH (10:12)
[2018-03-02] MEDS: ASPIRIN EC 81 MG TABLET PO SCH (10:13)
[2018-03-02] MEDS: FUROSEMIDE 80 MG TABLET PO SCH (10:13)
[2018-03-02] MEDS: PANTOPRAZOLE 40 MG TABLET PO SCH (10:13)
[2018-03-02] MEDS: CLOPIDOGREL 75 MG TABLET PO SCH (10:13)
[2018-03-02] MEDS: CHOLECALCIFEROL 400 UNIT TABLET PO SCH (10:14)
[2018-03-02] MEDS: ITRACONAZOLE 100 MG CAPSULE PO SCH (10:14)
[2018-03-02] MEDS: CARVEDILOL 12.5 MG TABLET PO SCH ×2 (10:14→20:44)
[2018-03-02] MEDS: ASCORBIC ACID 500 MG TABLET PO SCH (10:14)
[2018-03-02] MEDS: NYSTATIN POWDER 15 GM BOTTLE TOP SCH ×2 (10:15→20:45)
[2018-03-02] MEDS: LEVOFLOXACIN INJ 750 MG in PREMIX 1 EACH IV SCH (10:15)
[2018-03-02] MEDS: DESITIN 4OZ/NYSTATIN 15 GRAM MIXTURE PASTE TOP SCH ×2 (10:15→20:47)
[2018-03-02] MEDS: DICLOFENAC 1% GEL 100 GM TUBE TOP SCH ×2 (11:15→20:47)
[2018-03-02] MEDS: SODIUM CHLORIDE 0.9% IV SCH (12:56)
[2018-03-02] MEDS: TOBRAMYCIN IV SCH (12:56)
[2018-03-02] MEDS: ENOXAPARIN 40 MG/0.4 ML SYRINGE SUBCUT SCH (17:18)
[2018-03-02] MEDS: ACETAMINOPHEN 500 MG TABLET PO SCH (20:44)
[2018-03-03] MEDS: INSULIN LISPRO 100 UNIT/ML SUBCUT SCH ×4 (07:47→20:58)
[2018-03-03] MEDS: INSULIN NPH/REGULAR 70/30 100 UNIT/ML SUBCUT SCH ×2 (07:48→16:20)
[2018-03-03] MEDS: CLOPIDOGREL 75 MG TABLET PO SCH (09:00)
[2018-03-03] MEDS: PANTOPRAZOLE 40 MG TABLET PO SCH (09:00)
[2018-03-03] MEDS: SPIRONOLACTONE 25 MG TABLET PO SCH (09:00)
[2018-03-03] MEDS: CHOLECALCIFEROL 400 UNIT TABLET PO SCH (09:00)
[2018-03-03] MEDS: ASCORBIC ACID 500 MG TABLET PO SCH (09:00)
[2018-03-03] MEDS: ITRACONAZOLE 100 MG CAPSULE PO SCH (09:00)
[2018-03-03] MEDS: ASPIRIN EC 81 MG TABLET PO SCH (09:00)
[2018-03-03] MEDS: LEVOFLOXACIN INJ 750 MG in PREMIX 1 EACH IV SCH (09:01)
[2018-03-03] MEDS: NYSTATIN POWDER 15 GM BOTTLE TOP SCH ×2 (09:01→20:57)
[2018-03-03] MEDS: DESITIN 4OZ/NYSTATIN 15 GRAM MIXTURE PASTE TOP SCH ×2 (09:01→20:57)
[2018-03-03] MEDS: FUROSEMIDE 80 MG TABLET PO SCH (09:01)
[2018-03-03] MEDS: CARVEDILOL 12.5 MG TABLET PO SCH ×2 (09:01→20:56)
[2018-03-03] MEDS: SODIUM CHLORIDE 0.9% IV SCH (13:04)
[2018-03-03] MEDS: TOBRAMYCIN IV SCH (13:04)
[2018-03-03] MEDS: DICLOFENAC 1% GEL 100 GM TUBE TOP SCH ×2 (14:45→20:58)
[2018-03-03] MEDS: ENOXAPARIN 40 MG/0.4 ML SYRINGE SUBCUT SCH (16:44)
[2018-03-03 17:10] LABS: Apearance,Urine CLEAR (Clear); Bilirubin,Urine Negative (Negative); Blood, Urine Negative (Negative); Glucose,Urine (UA) Negative (Negative); Ketones,Urine Negative (Negative); Nitrite,Urine Negative (Negative); Protein,Urine Negative; RBC,Urine <1 /HPF (0-4); Urine Color Straw (Yellow); Urine Specific Gravity 1.008 (1.001-1.035); Urine Urobilinogen < 2.0 EU/DL (0.2-1.0); WBC,Urine <1 /HPF (0-6)
[2018-03-03] MEDS: ACETAMINOPHEN 500 MG TABLET PO SCH (20:56)
[2018-03-04 07:39] LABS: Basophils # 0.1 10*3/uL (0.0-0.2); Basophils % 1.3 % (0.0-0.8); Eosinophils # 1.7 10*3/uL (0.0-0.87); Eosinophils % 15.4 % (0.00-10.9); Hematocrit 33.8 VOL% (35.7-47.0); Hemoglobin 10.6 GM/DL (12.0-16.0); Immature Granulocytes % 0.4 %; Immature Granulocytes Absolute 0.04 #; Lymphocytes # 2.7 10*3/uL (1.4-4.0); Lymphocytes % 24.2 % (21.3-54.2); Mean Corpuscular HGB Conc 31.4 GM/DL (32-36); Mean Corpuscular Hemoglobin 23 PG (27-34); Mean Corpuscular Volume 72.7 FL (87-102); Mean Platelet Volume 11.8 FL (9.6-12.0); Monocytes # 0.9 10*3/uL (0.11-0.8); Monocytes % 7.8 % (1.7-12.7); Neutrophils # 5.6 10*3/uL (1.4-7.4); Neutrophils % 50.9 % (38.7-73.9); Platelet Count 459 T/CUMM (130-400); Red Blood Count 4.65 MC/CUMM (3.8-5.5); Red Cell Distribution Width 20.8 % (9.3-17.3)
[2018-03-04 08:13] LABS: % Iron Saturation 8.3 % (18-50); Anisocytosis 1+; Band Neutrophils 3 % (0-10); Calcium 9.2 MG/DL (8.5-10.1); Eosinophils 16 % (0-10); Ferritin 29.2 ng/ml (8-252); Lymphocytes 11 % (20-55); Macrocytosis Slight; Osmolality,Calculated 281.5 MOS/KG (273-304); Platelet Estimate Normal; Poikilocytosis Slight; Potassium 4.1 MMOL/L (3.5-5.1); Segmented Neutrophils 58 % (50-85); Total Cells Counted 100
[2018-03-04 08:14] LABS: Ovalocytes Few
[2018-03-04] MEDS: INSULIN NPH/REGULAR 70/30 100 UNIT/ML SUBCUT SCH ×2 (09:12→16:24)
[2018-03-04] MEDS: INSULIN LISPRO 100 UNIT/ML SUBCUT SCH ×4 (09:12→20:56)
[2018-03-04] MEDS: LEVOFLOXACIN INJ 750 MG in PREMIX 1 EACH IV SCH (09:13)
[2018-03-04] MEDS: ITRACONAZOLE 100 MG CAPSULE PO SCH (09:14)
[2018-03-04] MEDS: PANTOPRAZOLE 40 MG TABLET PO SCH (09:14)
[2018-03-04] MEDS: SPIRONOLACTONE 25 MG TABLET PO SCH (09:14)
[2018-03-04] MEDS: CARVEDILOL 12.5 MG TABLET PO SCH ×2 (09:14→20:57)
[2018-03-04] MEDS: CLOPIDOGREL 75 MG TABLET PO SCH (09:14)
[2018-03-04] MEDS: CHOLECALCIFEROL 400 UNIT TABLET PO SCH (09:14)
[2018-03-04] MEDS: FUROSEMIDE 80 MG TABLET PO SCH (09:14)
[2018-03-04] MEDS: DESITIN 4OZ/NYSTATIN 15 GRAM MIXTURE PASTE TOP SCH ×2 (09:14→21:00)
[2018-03-04] MEDS: ASCORBIC ACID 500 MG TABLET PO SCH (09:14)
[2018-03-04] MEDS: ASPIRIN EC 81 MG TABLET PO SCH (09:15)
[2018-03-04] MEDS: NYSTATIN POWDER 15 GM BOTTLE TOP SCH ×2 (09:15→21:00)
[2018-03-04] MEDS: DICLOFENAC 1% GEL 100 GM TUBE TOP SCH ×2 (09:29→21:00)
[2018-03-04] MEDS: TOBRAMYCIN IV SCH (11:20)
[2018-03-04] MEDS: SODIUM CHLORIDE 0.9% IV SCH (11:20)
[2018-03-04] MEDS: ENOXAPARIN 40 MG/0.4 ML SYRINGE SUBCUT SCH (14:48)
[2018-03-04] MEDS: ACETAMINOPHEN 500 MG TABLET PO SCH (20:57)
[2018-03-05] MEDS: INSULIN NPH/REGULAR 70/30 100 UNIT/ML SUBCUT SCH ×2 (07:42→16:08)
[2018-03-05] MEDS: INSULIN LISPRO 100 UNIT/ML SUBCUT SCH ×4 (07:42→21:28)
[2018-03-05] MEDS: SPIRONOLACTONE 25 MG TABLET PO SCH (08:23)
[2018-03-05] MEDS: CLOPIDOGREL 75 MG TABLET PO SCH (08:24)
[2018-03-05] MEDS: ASPIRIN EC 81 MG TABLET PO SCH (08:24)
[2018-03-05] MEDS: CARVEDILOL 12.5 MG TABLET PO SCH ×2 (08:24→21:26)
[2018-03-05] MEDS: ASCORBIC ACID 500 MG TABLET PO SCH (08:24)
[2018-03-05] MEDS: FUROSEMIDE 80 MG TABLET PO SCH (08:24)
[2018-03-05] MEDS: PANTOPRAZOLE 40 MG TABLET PO SCH (08:24)
[2018-03-05] MEDS: ITRACONAZOLE 100 MG CAPSULE PO SCH (08:24)
[2018-03-05] MEDS: LEVOFLOXACIN INJ 750 MG in PREMIX 1 EACH IV SCH (08:24)
[2018-03-05] MEDS: NYSTATIN POWDER 15 GM BOTTLE TOP SCH ×2 (08:25→21:28)
[2018-03-05] MEDS: DESITIN 4OZ/NYSTATIN 15 GRAM MIXTURE PASTE TOP SCH ×2 (08:25→21:29)
[2018-03-05] MEDS: CHOLECALCIFEROL 400 UNIT TABLET PO SCH (08:29)
[2018-03-05] MEDS: DICLOFENAC 1% GEL 100 GM TUBE TOP SCH ×2 (08:29→21:30)
[2018-03-05] MEDS: FERROUS SULFATE 325 MG TABLET PO SCH ×2 (09:49→21:26)
[2018-03-05] MEDS: SODIUM CHLORIDE 0.9% IV SCH (10:12)
[2018-03-05] MEDS: TOBRAMYCIN IV SCH (10:12)
[2018-03-05] MEDS: ENOXAPARIN 40 MG/0.4 ML SYRINGE SUBCUT SCH (14:39)
[2018-03-05] MEDS: ACETAMINOPHEN 500 MG TABLET PO SCH (21:29)
[2018-03-06 08:52] LABS: Basophils # 0.2 10*3/uL (0.0-0.2); Basophils % 1.6 % (0.0-0.8); Eosinophils % 18.4 % (0.00-10.9); Hematocrit 34.9 VOL% (35.7-47.0); Hemoglobin 10.9 GM/DL (12.0-16.0); Immature Granulocytes % 0.3 %; Immature Granulocytes Absolute 0.03 #; Lymphocytes # 2.7 10*3/uL (1.4-4.0); Lymphocytes % 24.3 % (21.3-54.2); Mean Corpuscular HGB Conc 31.2 GM/DL (32-36); Mean Corpuscular Hemoglobin 23 PG (27-34); Mean Corpuscular Volume 72.6 FL (87-102); Mean Platelet Volume 11.8 FL (9.6-12.0); Monocytes # 0.8 10*3/uL (0.11-0.8); Monocytes % 7.4 % (1.7-12.7); Neutrophils # 5.3 10*3/uL (1.4-7.4); Platelet Count 426 T/CUMM (130-400); Red Blood Count 4.81 MC/CUMM (3.8-5.5); Red Cell Distribution Width 21.2 % (9.3-17.3)
[2018-03-06 09:12] LABS: Eosinophils 22 % (0-10); Hypochromasia 1+; Lymphocytes 23 % (20-55); Platelet Estimate Adequate; Segmented Neutrophils 48 % (50-85); Total Cells Counted 100
[2018-03-06 09:13] LABS: Macrocytosis Slight
[2018-03-06 09:15] LABS: Calcium 9.5 MG/DL (8.5-10.1); Osmolality,Calculated 280.7 MOS/KG (273-304)
[2018-03-06] MEDS: LEVOFLOXACIN INJ 750 MG in PREMIX 1 EACH IV SCH (09:45)
[2018-03-06] MEDS: CARVEDILOL 12.5 MG TABLET PO SCH (09:46)
[2018-03-06] MEDS: PANTOPRAZOLE 40 MG TABLET PO SCH (09:46)
[2018-03-06] MEDS: ASCORBIC ACID 500 MG TABLET PO SCH (09:46)
[2018-03-06] MEDS: FERROUS SULFATE 325 MG TABLET PO SCH (09:46)
[2018-03-06] MEDS: FUROSEMIDE 80 MG TABLET PO SCH (09:46)
[2018-03-06] MEDS: ASPIRIN EC 81 MG TABLET PO SCH (09:46)
[2018-03-06] MEDS: NYSTATIN POWDER 15 GM BOTTLE TOP SCH (09:46)
[2018-03-06] MEDS: INSULIN NPH/REGULAR 70/30 100 UNIT/ML SUBCUT SCH (09:46)
[2018-03-06] MEDS: CLOPIDOGREL 75 MG TABLET PO SCH (09:46)
[2018-03-06] MEDS: CHOLECALCIFEROL 400 UNIT TABLET PO SCH (09:46)
[2018-03-06] MEDS: INSULIN LISPRO 100 UNIT/ML SUBCUT SCH ×2 (09:47→13:36)
[2018-03-06] MEDS: DICLOFENAC 1% GEL 100 GM TUBE TOP SCH (09:47)
[2018-03-06] MEDS: DESITIN 4OZ/NYSTATIN 15 GRAM MIXTURE PASTE TOP SCH (09:47)
[2018-03-06 11:59] VITALS: BP 129/64
[2018-03-06] MEDS ORDERED: TOBRAMYCIN IV SCH (12:00)
[2018-03-06] MEDS ORDERED: SODIUM CHLORIDE 0.9% IV SCH (12:00)
== END 2018-03-06 11:45 | DRG 690 ==
LOC: EDBD → EDUNIT# → N.ED 10:52 → N.EDINP 14:31 → SUATTDRO 14:31 → N.5E 16:35
PROVIDERS: ADMIT Hospitalist

== ENCOUNTER 2018-04-17 02:40 | Inpatient (IN) ==
[2018-04-17] MEDS ORDERED: FUROSEMIDE 40 MG/4 ML VIAL ONE (02:51)
[2018-04-17] MEDS ORDERED: FUROSEMIDE 40 MG/4 ML VIAL IV STA (02:57)
[2018-04-17] MEDS ORDERED: LEVALBUTEROL 1.25 MG/3 ML NEB RESP TX STA (02:59)
[2018-04-17] MEDS ORDERED: methylPREDNISolone SOD SUC 125 MG/2 ML VIAL IV STA (02:59)
[2018-04-17] MEDS ORDERED: CLINDAMYCIN INJ 600 MG in PREMIX 1 EACH IV STA (03:10)
[2018-04-17 03:20] LABS: Basophils # 0.1 10*3/uL (0.0-0.2); Basophils % 1.2 % (0.0-0.8); Eosinophils # 0.6 10*3/uL (0.0-0.87); Eosinophils % 7.7 % (0.00-10.9); Hemoglobin 12.3 GM/DL (12.0-16.0); Immature Granulocytes % 0.3 %; Immature Granulocytes Absolute 0.02 #; Lymphocytes # 2.3 10*3/uL (1.4-4.0); Lymphocytes % 28.8 % (21.3-54.2); Mean Corpuscular HGB Conc 32.4 GM/DL (32-36); Mean Corpuscular Hemoglobin 25 PG (27-34); Mean Corpuscular Volume 76.6 FL (87-102); Mean Platelet Volume 11.7 FL (9.6-12.0); Monocytes # 0.5 10*3/uL (0.11-0.8); Monocytes % 6.3 % (1.7-12.7); Neutrophils # 4.4 10*3/uL (1.4-7.4); Neutrophils % 55.7 % (38.7-73.9); Platelet Count 367 T/CUMM (130-400); Red Blood Count 4.96 MC/CUMM (3.8-5.5); Red Cell Distribution Width 26.4 % (9.3-17.3); White Blood Count 7.8 T/CUMM (4-12)
[2018-04-17 03:28] LABS: INR 1.1
[2018-04-17 03:32] LABS: Alanine Aminotransferase 12 U/L (13-56); Albumin 1.8 G/DL (3.4-5.0); Alkaline Phosphatase 103 U/L (45-117); Aspartate Amino Transferase 18 U/L (0-37); Blood Urea Nitrogen 18 MG/DL (7-18); Calcium 7.9 MG/DL (8.5-10.1); Glucose 81 MG/DL (74-106); Osmolality,Calculated 281.3 MOS/KG (273-304); Potassium 3.6 MMOL/L (3.5-5.1); Sodium 141 MMOL/L (136-145); Total Protein 6.5 G/DL (6.4-8.3)
[2018-04-17 03:33] LABS: Troponin I < 0.015 NG/ML (0.00-0.045)
[2018-04-17 03:33] LABS: Apearance,Urine CLEAR (Clear); Bacteria,Urine Many /HPF (Few); Bilirubin,Urine Negative (Negative); Blood, Urine Negative (Negative); Glucose,Urine (UA) Negative (Negative); Hyaline Casts,Urine 5 /LPF (0-3); Ketones,Urine Negative (Negative); Mucus,Urine Occasional /LPF (Occasional); Nitrite,Urine Negative (Negative); Protein,Urine Negative; Squamous Epithelial Cell,Urine Occasional /HPF (0-10); Urine Color Yellow (Yellow); Urine Specific Gravity 1.009 (1.001-1.035); Urine Urobilinogen < 2.0 EU/DL (0.2-1.0); WBC,Urine 2 /HPF (0-6)
[2018-04-17 03:45] LABS: Prolactin 21.8 NG/ML
[2018-04-17] MEDS ORDERED: MAGNESIUM SULF RIDER 2 GM in PREMIX 1 EACH IV STA (03:45)
[2018-04-17] MEDS ORDERED: GLUCAGON 1 MG VIAL IM PRN (04:04)
[2018-04-17] MEDS ORDERED: DEXTROSE 50% 25 GM/50 ML VIAL IV PRN (04:04)
[2018-04-17] MEDS ORDERED: SODIUM CHLORIDE 0.9% 1,000 ML IV SCH (04:30)
[2018-04-17] MEDS ORDERED: LEVOFLOXACIN INJ 750 MG in PREMIX 1 EACH IV SCH (04:30)
[2018-04-17] MEDS ORDERED: DOCUSATE SODIUM 100 MG CAPSULE PO PRN (06:56)
[2018-04-17] MEDS ORDERED: CALCIUM CARBONATE CHEW 500 MG TABLET PO PRN (06:56)
[2018-04-17] MEDS ORDERED: SIMETHICONE CHEW 125 MG TABLET PO PRN (06:56)
[2018-04-17] MEDS: INSULIN LISPRO 100 UNIT/ML SUBCUT SCH ×2 (08:07→11:34)
[2018-04-17] MEDS: LEVALBUTEROL 1.25 MG/3 ML NEB RESP TX SCH ×2 (08:49→09:01)
[2018-04-17] MEDS ORDERED: ASCORBIC ACID 500 MG TABLET PO SCH (09:00)
[2018-04-17] MEDS ORDERED: DICLOFENAC 1% GEL 100 GM TUBE TOP SCH (09:00)
[2018-04-17] MEDS ORDERED: CHOLECALCIFEROL 400 UNIT TABLET PO SCH (09:00)
[2018-04-17] MEDS ORDERED: ASPIRIN EC 81 MG TABLET PO SCH (09:00)
[2018-04-17] MEDS ORDERED: CARVEDILOL 12.5 MG TABLET PO SCH (09:00)
[2018-04-17] MEDS ORDERED: FUROSEMIDE 80 MG TABLET PO SCH (09:00)
[2018-04-17] MEDS ORDERED: FERROUS SULFATE 325 MG TABLET PO SCH (09:00)
[2018-04-17] MEDS ORDERED: VITAMIN E 400 UNIT CAPSULE PO SCH (09:00)
[2018-04-17] MEDS ORDERED: CLOPIDOGREL 75 MG TABLET PO SCH (09:00)
[2018-04-17] MEDS ORDERED: MAGNESIUM SULF RIDER 2 GM in PREMIX 1 EACH IV PRN (09:54)
[2018-04-17] MEDS ORDERED: MAGNESIUM SULF RIDER 4 GM in PREMIX 1 EACH IV PRN (09:54)
[2018-04-17 11:10] VITALS: BP 96/56
[2018-04-17] MEDS ORDERED: ZINC OXIDE PASTE 113 GM TUBE TOP SCH (12:30)
[2018-04-17] MEDS ORDERED: ACETAMINOPHEN 500 MG TABLET PO SCH (21:00)
== END 2018-04-17 12:25 | DRG 638 ==
LOC: N.ED 02:40 → N.EDINP 03:58 → N.3E 05:18
PROVIDERS: ADMIT Internal Medicine Geriatric Medicine; ATTEND Internal Medicine Geriatric Medicine